=== PATIENT | male | born 1980 | race Caucasian/White ===

== ENCOUNTER → 2017-06-01 14:59 | Outpatient (CLI) | payer OTHER, SELFPAY ==
[2017-06-08 09:23] LABS: Calprotectin, Stool 58 ug/g (0-120)
== END ==
PROVIDERS: Family Provider Family Medicine; PCP Family Medicine; Visit Provider Internal Medicine Gastroenterology
DX: K50.90 Crohn's disease, unspecified, without complications (principal)
CPT/HCPCS: 36415; 83630; 83993; 86140

== ENCOUNTER → 2017-06-08 10:31 | Outpatient (CLI) | payer OTHER, SELFPAY ==
[2017-06-08 12:27] LABS: ALB/GLOB Ratio 1.1 RATIO (0.9-2.4); AST(SGOT) 14 U/L (15-37); Alanine Aminotransfer ALT/SGPT 22 U/L (16-61); Alkaline Phosphatase 142 U/L (45-117); Anion Gap 8 (5-15); BUN 12 mg/dL (7-18); BUN/Creat Ratio 12.2 RATIO (10-20); Calcium,Total 8.9 mg/dL (8.5-10.1); Chloride 103 mmol/L (98-107); Creatinine, Serum 0.98 mg/dL (0.70-1.30); EST Glomerular Filtration Rate 92 mL/min (>60); Est Glom Filt Rate - Afr Amer 112 mL/min (>60); Globulin 3.6 g/dL (2.2-4.2); Glucose 100 mg/dL (74-106); Potassium 3.6 mmol/L (3.5-5.1); Protein, Total 7.6 g/dL (6.4-8.2); Sodium Level 139 mmol/L (136-145)
[2017-06-08 12:32] LABS: Absolute Lymphocyte Count 0.64 X10^3/ul (0.83-4.51); Absolute Neutrophil Count 4.3 X10^3/uL (2.0-7.7); Eosinophil# 0.07 X10^3/uL; Eosinophils% 1.3 % (0-5); Hematocrit 44.6 % (40-54); Hemoglobin 14.5 g/dl (13.0-16.5); Lymphocyte # 0.64 X10^3/ul (4.0); Lymphocyte % 11.7 % (19-41); Mean Corp Hgb Conc 32.5 g/gl (32-36); Mean Corpuscular Hgb 27.8 pg (27.0-32.0); Mean Corpuscular Volume 85.6 fL (80-94); Mean Platelet Vol. 10.8 fl (6.2-12.0); Monocyte# 0.45 X10^3/uL; Monocyte% 8.2 % (0-10); Neutrophil % 78.6 % (47-70); Platelet Count 189 K/mm3 (150-450); RBC Distribution Width CV 13.5 % (11.6-14.6); RBC Distribution Width SD 42.6 fl (35.1-43.9); Red Blood Count 5.21 M/mm3 (4.6-6.2); White Blood Count 5.5 K/mm3 (4.4-11.0)
[2017-06-08 12:41] LABS: POSITIVE COUNT NO; POSITIVE DIFFERENTIAL NO; POSITIVE MORPHOLOGY NO
== END ==
PROVIDERS: Family Provider Family Medicine; PCP Family Medicine
DX: Z79.2 Long term (current) use of antibiotics (principal); K51.90 Ulcerative colitis, unspecified, without complications
CPT/HCPCS: 36415; 80053; 85025

== ENCOUNTER → 2017-07-06 12:52 | Outpatient (CLI) | payer OTHER, SELFPAY ==
[2017-07-06 12:59] VITALS: BP 151/96; PULSE 88; RESP 18; TEMP 36.7; O2SAT 98; BMI 29.8
== END ==
PROVIDERS: Family Provider Family Medicine; PCP Family Medicine; Visit Provider Internal Medicine Gastroenterology
DX: K52.9 Noninfective gastroenteritis and colitis, unspecified (principal)
CPT/HCPCS: 96413; J7050; J3380

== ENCOUNTER → 2017-07-20 12:52 | Outpatient (CLI) | payer OTHER, SELFPAY ==
[2017-07-20 12:59] VITALS: BP 146/77; PULSE 75; RESP 16; TEMP 36.6; O2SAT 97; BMI 29.8
[2017-07-20 14:20] VITALS: BP 123/71; PULSE 69
== END ==
PROVIDERS: Family Provider Family Medicine; PCP Family Medicine; Visit Provider Internal Medicine Gastroenterology
DX: K52.9 Noninfective gastroenteritis and colitis, unspecified (principal)
CPT/HCPCS: 96413; J7050; A4216; J3380

== ENCOUNTER → 2017-07-24 09:30 | Outpatient (CLI) | payer OTHER, SELFPAY ==
[2017-07-24 14:18] LABS: Absolute Lymphocyte Count 0.63 X10^3/ul (0.83-4.51); Absolute Neutrophil Count 3.1 X10^3/uL (2.0-7.7); Eosinophils% 2.3 % (0-5); Hematocrit 42.8 % (40-54); Hemoglobin 14.4 g/dl (13.0-16.5); Lymphocyte # 0.63 X10^3/ul (4.0); Lymphocyte % 14.7 % (19-41); Mean Corp Hgb Conc 33.6 g/gl (32-36); Mean Corpuscular Hgb 28.3 pg (27.0-32.0); Mean Corpuscular Volume 84.3 fL (80-94); Mean Platelet Vol. 11.3 fl (6.2-12.0); Monocyte# 0.47 X10^3/uL; Neutrophil # 3.07 X10^3/uL (2.7-7.7); Neutrophil % 71.5 % (47-70); Platelet Count 181 K/mm3 (150-450); RBC Distribution Width CV 13.5 % (11.6-14.6); Red Blood Count 5.08 M/mm3 (4.6-6.2); White Blood Count 4.3 K/mm3 (4.4-11.0)
[2017-07-24 14:28] LABS: POSITIVE COUNT NO; POSITIVE DIFFERENTIAL NO; POSITIVE MORPHOLOGY NO
== END ==
PROVIDERS: Family Provider Family Medicine; PCP Family Medicine; Visit Provider Internal Medicine
DX: B39.4 Histoplasmosis capsulati, unspecified (principal); Z79.2 Long term (current) use of antibiotics
CPT/HCPCS: 36415; 85025

== ENCOUNTER → 2017-08-09 09:24 | Outpatient (CLI) | payer OTHER, SELFPAY ==
[2017-08-09 10:26] LABS: Hematocrit 41.6 % (40-54); Mean Corp Hgb Conc 33.7 g/gl (32-36); Mean Corpuscular Hgb 28.5 pg (27.0-32.0); Mean Corpuscular Volume 84.6 fL (80-94); Mean Platelet Vol. 10.8 fl (6.2-12.0); Platelet Count 167 K/mm3 (150-450); RBC Distribution Width CV 13.5 % (11.6-14.6); RBC Distribution Width SD 41.1 fl (35.1-43.9); Red Blood Count 4.92 M/mm3 (4.6-6.2); White Blood Count 5.4 K/mm3 (4.4-11.0)
[2017-08-09 10:36] LABS: Scan Indicated on CBC? Y/N NO
[2017-08-09 10:42] LABS: CRP 8.77 mg/L (0.0-3.0)
== END ==
PROVIDERS: Family Provider Family Medicine; PCP Family Medicine; Visit Provider Internal Medicine Gastroenterology
DX: K52.9 Noninfective gastroenteritis and colitis, unspecified (principal); B39.9 Histoplasmosis, unspecified
CPT/HCPCS: 36415; 85027; 86140

== ENCOUNTER → 2017-08-17 12:57 | Outpatient (CLI) | payer OTHER, SELFPAY ==
[2017-08-17 13:05] VITALS: BP 133/91; PULSE 71; RESP 16; TEMP 36.5; O2SAT 96; BMI 30.4
== END ==
PROVIDERS: Family Provider Family Medicine; PCP Family Medicine; Visit Provider Internal Medicine Gastroenterology
DX: K52.9 Noninfective gastroenteritis and colitis, unspecified (principal)
CPT/HCPCS: 96413; J7050; A4216; J3380

== ENCOUNTER → 2017-10-12 12:14 | Outpatient (CLI) | payer OTHER, SELFPAY ==
[2017-10-12 12:59] VITALS: BP 133/72; PULSE 74; RESP 18; TEMP 36.9; O2SAT 95; BMI 29.8
== END ==
PROVIDERS: Family Provider Family Medicine; PCP Family Medicine; Visit Provider Internal Medicine Gastroenterology
DX: K52.9 Noninfective gastroenteritis and colitis, unspecified (principal)
CPT/HCPCS: 96413; J7050; A4216; J3380

== ENCOUNTER → 2017-12-12 12:48 | Outpatient (CLI) | payer OTHER, SELFPAY ==
[2017-12-12 13:17] VITALS: BP 121/78; PULSE 75; RESP 18; TEMP 36.3; O2SAT 97; BMI 29.8
== END ==
PROVIDERS: Family Provider Family Medicine; PCP Family Medicine; Visit Provider Internal Medicine Gastroenterology
DX: K52.9 Noninfective gastroenteritis and colitis, unspecified (principal)
CPT/HCPCS: 96413; J7050; A4216; J3380

== ENCOUNTER 2018-01-03 11:49 | Outpatient (RCR) | payer OTHER, SELFPAY ==
[2018-01-03 14:19] LABS: Absolute Lymphocyte Count 0.73 X10^3/ul (0.83-4.51); Absolute Neutrophil Count 5.4 X10^3/uL (2.0-7.7); Eosinophil# 0.12 X10^3/uL; Eosinophils% 1.7 % (0-5); Hematocrit 43.3 % (40-54); Hemoglobin 14.5 g/dl (13.0-16.5); Lymphocyte # 0.73 X10^3/ul (4.0); Lymphocyte % 10.5 % (19-41); Mean Corp Hgb Conc 33.5 g/gl (32-36); Mean Corpuscular Hgb 27.9 pg (27.0-32.0); Mean Corpuscular Volume 83.4 fL (80-94); Mean Platelet Vol. 10.2 fl (6.2-12.0); Monocyte# 0.65 X10^3/uL; Monocyte% 9.4 % (0-10); Neutrophil # 5.42 X10^3/uL (2.7-7.7); Neutrophil % 78.1 % (47-70); POSITIVE COUNT NO; POSITIVE DIFFERENTIAL NO; POSITIVE MORPHOLOGY NO; Platelet Count 193 K/mm3 (150-450); RBC Distribution Width CV 13.2 % (11.6-14.6); RBC Distribution Width SD 39.8 fl (35.1-43.9); Red Blood Count 5.19 M/mm3 (4.6-6.2); White Blood Count 6.9 K/mm3 (4.4-11.0)
[2018-01-03 14:35] LABS: ALB/GLOB Ratio 1.1 RATIO (0.9-2.4); AST(SGOT) 17 U/L (15-37); Alanine Aminotransfer ALT/SGPT 28 U/L (16-61); Alkaline Phosphatase 140 U/L (45-117); Anion Gap 7 (5-15); BUN 16 mg/dL (7-18); BUN/Creat Ratio 15.8 RATIO (10-20); Calcium,Total 8.9 mg/dL (8.5-10.1); Chloride 106 mmol/L (98-107); Creatinine, Serum 1.01 mg/dL (0.70-1.30); EST Glomerular Filtration Rate 89 mL/min (>60); Est Glom Filt Rate - Afr Amer 108 mL/min (>60); Globulin 3.7 g/dL (2.2-4.2); Glucose 95 mg/dL (74-106); Potassium 3.8 mmol/L (3.5-5.1); Protein, Total 7.7 g/dL (6.4-8.2); Sodium Level 139 mmol/L (136-145)
== END 2018-01-03 13:00 | disposition home or self-care (01) ==
LOC: MTLAB 11:49
PROVIDERS: Family Provider Family Medicine; PCP Family Medicine; Referring Provider Internal Medicine; Visit Provider Internal Medicine
DX: B39.2 Pulmonary histoplasmosis capsulati, unspecified (principal); Z79.2 Long term (current) use of antibiotics
CPT/HCPCS: 36415; 80053; 85025

== ENCOUNTER → 2018-02-14 12:58 | Outpatient (CLI) | payer OTHER, SELFPAY ==
[2018-02-14 13:26] VITALS: BP 137/93; PULSE 84; RESP 16; TEMP 36.2; O2SAT 97; BMI 29.8
== END ==
PROVIDERS: Family Provider Family Medicine; PCP Family Medicine; Visit Provider Internal Medicine Gastroenterology
DX: K52.9 Noninfective gastroenteritis and colitis, unspecified (principal)
CPT/HCPCS: 96413; J7050; A4216; J3380

== ENCOUNTER 2018-03-13 07:20 | Outpatient (RCR) | payer OTHER, SELFPAY ==
[2018-03-13 10:49] LABS: Absolute Lymphocyte Count 0.63 X10^3/ul (0.83-4.51); Absolute Neutrophil Count 3.5 X10^3/uL (2.0-7.7); Eosinophil# 0.13 X10^3/uL; Eosinophils% 2.8 % (0-5); Hematocrit 44.6 % (40-54); Hemoglobin 14.9 g/dl (13.0-16.5); Lymphocyte # 0.63 X10^3/ul (4.0); Lymphocyte % 13.5 % (19-41); Mean Corp Hgb Conc 33.4 g/gl (32-36); Mean Corpuscular Hgb 28.4 pg (27.0-32.0); Mean Platelet Vol. 10.8 fl (6.2-12.0); Monocyte# 0.43 X10^3/uL; Monocyte% 9.2 % (0-10); Neutrophil # 3.45 X10^3/uL (2.7-7.7); Neutrophil % 74.3 % (47-70); Platelet Count 170 K/mm3 (150-450); RBC Distribution Width CV 13.3 % (11.6-14.6); RBC Distribution Width SD 41.1 fl (35.1-43.9); Red Blood Count 5.25 M/mm3 (4.6-6.2); White Blood Count 4.7 K/mm3 (4.4-11.0)
[2018-03-13 10:50] LABS: POSITIVE COUNT NO; POSITIVE DIFFERENTIAL NO; POSITIVE MORPHOLOGY NO
[2018-03-13 11:16] LABS: ALB/GLOB Ratio 1.1 RATIO (0.9-2.4); AST(SGOT) 16 U/L (15-37); Alanine Aminotransfer ALT/SGPT 22 U/L (16-61); Albumin, Serum 3.9 g/dL (3.2-5.0); Alkaline Phosphatase 135 U/L (45-117); Anion Gap 10 (5-15); BUN 15 mg/dL (7-18); BUN/Creat Ratio 16.1 RATIO (10-20); CRP 5.92 mg/L (0.0-3.0); Calcium,Total 8.7 mg/dL (8.5-10.1); Chloride 107 mmol/L (98-107); Creatinine, Serum 0.93 mg/dL (0.70-1.30); EST Glomerular Filtration Rate 97 mL/min (>60); Est Glom Filt Rate - Afr Amer 118 mL/min (>60); Globulin 3.4 g/dL (2.2-4.2); Glucose 79 mg/dL (74-106); Potassium 4.1 mmol/L (3.5-5.1); Protein, Total 7.3 g/dL (6.4-8.2); Sodium Level 143 mmol/L (136-145)
[2018-03-13 15:23] LABS: Xtra Tube EP Lab EXTRA TUBE
== END 2018-03-13 08:00 | disposition home or self-care (01) ==
LOC: MTLAB 07:20
PROVIDERS: Family Provider Family Medicine; PCP Family Medicine; Referring Provider Internal Medicine; Visit Provider Internal Medicine
DX: K52.9 Noninfective gastroenteritis and colitis, unspecified (principal)
CPT/HCPCS: 36415; 80053; 82248; 85025; 86140

== ENCOUNTER → 2018-04-05 10:04 | Outpatient (CLI) | payer OTHER, SELFPAY ==
[2018-04-05 13:03] LABS: Cholesterol 142 mg/dL (200); High Density Lipoprotein 42 mg/dL; Triglycerides 127 mg/dL; Very Low Density Lipoprotein 25 mg/dL (5-40)
== END ==
PROVIDERS: Family Provider Family Medicine; PCP Family Medicine; Referring Provider Family Medicine; Visit Provider Family Medicine
DX: I10 Essential (primary) hypertension (principal)
CPT/HCPCS: 36415; 80061

== ENCOUNTER → 2018-04-11 07:50 | Outpatient (CLI) | payer OTHER, SELFPAY ==
[2018-02-14 13:26] VITALS: BMI 29.8
[2018-04-11 08:16] VITALS: BP 122/84; PULSE 69; RESP 16; TEMP 36.1; O2SAT 97; BMI 30.4
== END ==
PROVIDERS: Family Provider Family Medicine; PCP Family Medicine; Referring Provider Internal Medicine Gastroenterology; Visit Provider Internal Medicine Gastroenterology
DX: K52.9 Noninfective gastroenteritis and colitis, unspecified (principal)
CPT/HCPCS: 96413; J7050; A4216; J3380

== ENCOUNTER → 2018-06-07 12:47 | Outpatient (CLI) | payer OTHER, SELFPAY ==
[2018-04-11 08:16] VITALS: BMI 30.4
[2018-06-07 13:07] VITALS: BP 127/85; PULSE 79; RESP 16; TEMP 36.7; BMI 30.8
== END ==
PROVIDERS: Family Provider Family Medicine; PCP Family Medicine; Referring Provider Internal Medicine Gastroenterology; Visit Provider Internal Medicine Gastroenterology
DX: K52.9 Noninfective gastroenteritis and colitis, unspecified (principal)
CPT/HCPCS: 96413; J7050; A4216; J3380

== ENCOUNTER 2018-06-19 09:09 | Outpatient (RCR) | payer OTHER, SELFPAY ==
[2018-02-14 13:26] VITALS: BMI 29.8
[2018-04-11 08:16] VITALS: BMI 30.4
[2018-06-07 13:07] VITALS: BMI 30.8
[2018-06-19 12:25] LABS: Absolute Lymphocyte Count 0.86 X10^3/ul (0.83-4.51); Eosinophil# 0.39 X10^3/uL; Eosinophils% 5.7 % (0-5); Hematocrit 46.5 % (40-54); Hemoglobin 15.5 g/dl (13.0-16.5); Lymphocyte # 0.86 X10^3/ul (4.0); Lymphocyte % 12.6 % (19-41); Mean Corp Hgb Conc 33.3 g/gl (32-36); Mean Corpuscular Hgb 28.5 pg (27.0-32.0); Mean Corpuscular Volume 85.5 fL (80-94); Mean Platelet Vol. 11.1 fl (6.2-12.0); Monocyte# 0.53 X10^3/uL; Monocyte% 7.8 % (0-10); Neutrophil # 5.01 X10^3/uL (2.7-7.7); Neutrophil % 73.5 % (47-70); Platelet Count 202 K/mm3 (150-450); RBC Distribution Width CV 12.9 % (11.6-14.6); RBC Distribution Width SD 40.1 fl (35.1-43.9); Red Blood Count 5.44 M/mm3 (4.6-6.2); White Blood Count 6.8 K/mm3 (4.4-11.0)
[2018-06-19 12:38] LABS: POSITIVE COUNT NO; POSITIVE DIFFERENTIAL NO; POSITIVE MORPHOLOGY NO
[2018-06-19 12:40] LABS: AST(SGOT) 15 U/L (15-37); Alanine Aminotransfer ALT/SGPT 26 U/L (16-61); Albumin, Serum 4.1 g/dL (3.2-5.0); Alkaline Phosphatase 167 U/L (45-117); Anion Gap 10 (5-15); BUN 15 mg/dL (7-18); BUN/Creat Ratio 15.7 RATIO (10-20); Calcium,Total 8.9 mg/dL (8.5-10.1); Chloride 104 mmol/L (98-107); Creatinine, Serum 0.96 mg/dL (0.70-1.30); EST Glomerular Filtration Rate 95 mL/min (>60); Est Glom Filt Rate - Afr Amer 115 mL/min (>60); Ferritin 47 ng/mL (26-388); Glucose 88 mg/dL (74-106); Iron 68 ug/dL (65-175); Potassium 3.9 mmol/L (3.5-5.1); Protein, Total 8.1 g/dL (6.4-8.2); Sodium Level 142 mmol/L (136-145)
[2018-06-19 17:22] LABS: Xtra Tube EP Lab EXTRA TUBE
[2018-06-20 11:22] LABS: Transferrin 268 mg/dL (200-370)
== END 2018-06-19 10:00 | disposition home or self-care (01) ==
LOC: MTLAB 09:09
PROVIDERS: Family Provider Family Medicine; PCP Family Medicine; Referring Provider Internal Medicine; Visit Provider Internal Medicine
DX: K52.9 Noninfective gastroenteritis and colitis, unspecified (principal); B39.4 Histoplasmosis capsulati, unspecified; Z79.2 Long term (current) use of antibiotics; E83.19 Other disorders of iron metabolism; K51.90 Ulcerative colitis, unspecified, without complications
CPT/HCPCS: 36415; 80053; 82728; 83540; 84466; 85025; 86140

== ENCOUNTER → 2018-07-27 11:00 | Outpatient (CLI) | payer OTHER, SELFPAY ==
[2018-07-27 11:00] VITALS: BMI 30.8
[2018-07-27 13:50] LABS: HIV - WCH Non-Reactive (Nonreactive)
[2018-07-27 14:40] LABS: Chlamydia Trachomatis by PCR Negative (Negative); Neisserai gonorrhoeae by PCR Negative (Negative); Probe Check PASS; Sample Adequacy Control PASS; Specimen Processing Control PASS
[2018-08-03 02:51] LABS: Rapid Plasmin Reagin (RPR) NONREACTIVE (NONREACTIVE)
== END ==
PROVIDERS: Family Provider Family Medicine; PCP Family Medicine; Visit Provider Family Medicine
DX: Z20.9 Contact with and (suspected) exposure to unspecified communicable disease (principal); R30.0 Dysuria
CPT/HCPCS: 36415; 86592; 86703; 87491; 87591

== ENCOUNTER → 2018-08-02 12:58 | Outpatient (CLI) | payer OTHER, SELFPAY ==
[2018-06-07 13:07] VITALS: BMI 30.8
[2018-07-27 11:00] VITALS: BMI 30.8
[2018-08-02 13:24] VITALS: BP 130/81; PULSE 91; RESP 16; TEMP 36.6; O2SAT 94; BMI 31.5
== END ==
PROVIDERS: Family Provider Family Medicine; PCP Family Medicine; Referring Provider Internal Medicine Gastroenterology; Visit Provider Internal Medicine Gastroenterology
DX: K52.9 Noninfective gastroenteritis and colitis, unspecified (principal)
CPT/HCPCS: 96413; J7050; A4216; J3380

== ENCOUNTER → 2018-08-17 10:44 | Outpatient (CLI) | payer OTHER, SELFPAY ==
[2018-08-02 13:24] VITALS: BMI 31.5
[2018-08-17 13:26] LABS: CRP < 2.90 mg/L (0.0-3.0)
[2018-08-20 13:02] LABS: Calprotectin, Stool 26 ug/g (0-120)
== END ==
PROVIDERS: Family Provider Family Medicine; PCP Family Medicine; Referring Provider Internal Medicine Gastroenterology; Visit Provider Internal Medicine Gastroenterology
DX: K52.9 Noninfective gastroenteritis and colitis, unspecified (principal); B39.9 Histoplasmosis, unspecified
CPT/HCPCS: 36415; 83993; 86140

== ENCOUNTER 2018-09-21 09:45 | Outpatient (RCR) | payer OTHER, SELFPAY ==
[2018-07-06 14:09] VITALS: BMI 30.4
[2018-08-02 13:24] VITALS: BMI 31.5
[2018-09-21 12:16] LABS: Absolute Lymphocyte Count 0.72 X10^3/ul (0.83-4.51); Absolute Neutrophil Count 3.5 X10^3/uL (2.0-7.7); Eosinophil# 0.14 X10^3/uL; Eosinophils% 2.9 % (0-5); Hematocrit 44.6 % (40-54); Hemoglobin 15.2 g/dl (13.0-16.5); Lymphocyte # 0.72 X10^3/ul (4.0); Lymphocyte % 14.9 % (19-41); Mean Corp Hgb Conc 34.1 g/gl (32-36); Mean Corpuscular Hgb 28.8 pg (27.0-32.0); Mean Corpuscular Volume 84.5 fL (80-94); Mean Platelet Vol. 10.9 fl (6.2-12.0); Monocyte# 0.49 X10^3/uL; Monocyte% 10.1 % (0-10); Neutrophil # 3.48 X10^3/uL (2.7-7.7); Neutrophil % 71.9 % (47-70); Platelet Count 175 K/mm3 (150-450); RBC Distribution Width CV 13.3 % (11.6-14.6); RBC Distribution Width SD 40.5 fl (35.1-43.9); Red Blood Count 5.28 M/mm3 (4.6-6.2); White Blood Count 4.8 K/mm3 (4.4-11.0)
[2018-09-21 12:21] LABS: POSITIVE COUNT NO; POSITIVE DIFFERENTIAL NO; POSITIVE MORPHOLOGY NO
[2018-09-21 12:41] LABS: ALB/GLOB Ratio 1.2 RATIO (0.9-2.4); AST(SGOT) 13 U/L (15-37); Alanine Aminotransfer ALT/SGPT 25 U/L (16-61); Albumin, Serum 3.9 g/dL (3.2-5.0); Alkaline Phosphatase 118 U/L (45-117); Anion Gap 7 (5-15); BUN 16 mg/dL (7-18); BUN/Creat Ratio 18.6 RATIO (10-20); Calcium,Total 8.8 mg/dL (8.5-10.1); Chloride 109 mmol/L (98-107); Creatinine, Serum 0.86 mg/dL (0.70-1.30); EST Glomerular Filtration Rate 107 mL/min (>60); Est Glom Filt Rate - Afr Amer 129 mL/min (>60); Globulin 3.3 g/dL (2.2-4.2); Glucose 86 mg/dL (74-106); Protein, Total 7.2 g/dL (6.4-8.2); Sodium Level 142 mmol/L (136-145)
[2018-09-21 17:55] LABS: Xtra Tube EP Lab EXTRA TUBE
== END 2018-09-21 10:00 | disposition home or self-care (01) ==
LOC: MTLAB 09:45
PROVIDERS: Family Provider Family Medicine; PCP Family Medicine; Referring Provider Internal Medicine; Visit Provider Internal Medicine
DX: B39.4 Histoplasmosis capsulati, unspecified (principal); Z79.2 Long term (current) use of antibiotics
CPT/HCPCS: 36415; 80053; 85025

== ENCOUNTER → 2018-10-10 12:47 | Outpatient (CLI) | payer OTHER, SELFPAY ==
[2018-08-02 13:24] VITALS: BMI 31.5
[2018-10-10 13:00] VITALS: BP 132/79; PULSE 74; RESP 16; TEMP 36.4; O2SAT 100; BMI 30.8
== END ==
PROVIDERS: Family Provider Family Medicine; PCP Family Medicine; Referring Provider Internal Medicine Gastroenterology; Visit Provider Internal Medicine Gastroenterology
DX: K52.9 Noninfective gastroenteritis and colitis, unspecified (principal)
CPT/HCPCS: 96413; J7050; A4216; J3380

== ENCOUNTER → 2018-12-11 12:47 | Outpatient (CLI) | payer OTHER, SELFPAY ==
[2018-08-02 13:24] VITALS: BMI 31.5
[2018-12-11 13:05] VITALS: BP 139/80; PULSE 84; RESP 16; TEMP 36.4; O2SAT 95; BMI 30.8
== END ==
PROVIDERS: Family Provider Family Medicine; PCP Family Medicine; Referring Provider Internal Medicine Gastroenterology; Visit Provider Internal Medicine Gastroenterology
DX: K52.9 Noninfective gastroenteritis and colitis, unspecified (principal)
CPT/HCPCS: 96413; J7050; J3380

== ENCOUNTER → 2019-02-04 07:52 | Outpatient (CLI) | payer OTHER, SELFPAY ==
[2018-12-11 13:05] VITALS: BMI 30.8
[2019-02-04 08:18] VITALS: BP 160/91; PULSE 64; RESP 16; TEMP 35.9; O2SAT 99; BMI 30.8
== END ==
PROVIDERS: Family Provider Family Medicine; PCP Family Medicine; Referring Provider Internal Medicine Gastroenterology; Visit Provider Internal Medicine Gastroenterology
DX: K52.9 Noninfective gastroenteritis and colitis, unspecified (principal)
CPT/HCPCS: 96413; J7050; A4216; J3380

== ENCOUNTER 2019-03-11 10:38 | Outpatient (RCR) | payer OTHER, SELFPAY ==
[2018-08-02 13:24] VITALS: BMI 31.5
[2019-02-04 08:18] VITALS: BMI 30.8
[2019-03-11 12:37] LABS: Absolute Lymphocyte Count 0.92 X10^3/uL (0.83-4.51); Absolute Neutrophil Count 4.4 X10^3/uL (2.0-7.7); Basophil# 0.01 X10^3/uL; Basophil% 0.2 % (0-1); Eosinophil# 0.14 X10^3/uL; Eosinophils% 2.3 % (0-5); Hematocrit 47.6 % (40-54); Lymphocyte # 0.92 X10^3/ul (4.0); Lymphocyte % 15.3 % (19-41); Mean Corp Hgb Conc 33.6 g/dL (32-36); Mean Corpuscular Hgb 28.6 pg (27.0-32.0); Mean Corpuscular Volume 85.2 fL (80-94); Monocyte# 0.54 X10^3/uL; NRBC Flagged by Analyzer 0 % (0-5); Neutrophil # 4.36 X10^3/uL (2.7-7.7); Neutrophil % 72.7 % (47-70); Platelet Count 189 K/mm3 (150-450); RBC Distribution Width CV 12.7 % (11.6-14.6); RBC Distribution Width SD 39.4 fl (35.1-43.9); Red Blood Count 5.59 M/mm3 (4.6-6.2)
[2019-03-11 12:44] LABS: ALB/GLOB Ratio 1.3 RATIO (0.9-2.4); AST(SGOT) 15 U/L (15-37); Alanine Aminotransfer ALT/SGPT 22 U/L (16-61); Albumin, Serum 4.1 g/dL (3.2-5.0); Alkaline Phosphatase 124 U/L (45-117); Anion Gap 7 (5-15); BUN 16 mg/dL (7-18); BUN/Creat Ratio 18.4 RATIO (10-20); Calcium,Total 8.8 mg/dL (8.5-10.1); Chloride 106 mmol/L (98-107); Creatinine, Serum 0.87 mg/dL (0.70-1.30); EST Glomerular Filtration Rate 105 mL/min (>60); Est Glom Filt Rate - Afr Amer 127 mL/min (>60); Globulin 3.2 g/dL (2.2-4.2); Glucose 90 mg/dL (74-106); Potassium 4.1 mmol/L (3.5-5.1); Protein, Total 7.3 g/dL (6.4-8.2); Sodium Level 139 mmol/L (136-145)
== END 2019-03-11 18:00 | disposition home or self-care (01) ==
LOC: MTLAB 10:38
PROVIDERS: Family Provider Family Medicine; PCP Family Medicine; Referring Provider Internal Medicine; Visit Provider Internal Medicine
DX: B39.4 Histoplasmosis capsulati, unspecified (principal); Z79.2 Long term (current) use of antibiotics
CPT/HCPCS: 36415; 80053; 85025

== ENCOUNTER → 2019-04-01 12:50 | Outpatient (CLI) | payer OTHER, SELFPAY ==
[2019-02-04 08:18] VITALS: BMI 30.8
[2019-04-01 12:58] VITALS: BP 154/97; PULSE 76; RESP 18; TEMP 36.6; O2SAT 95; BMI 31.5
== END ==
PROVIDERS: Family Provider Family Medicine; PCP Family Medicine; Referring Provider Internal Medicine Gastroenterology; Visit Provider Internal Medicine Gastroenterology
DX: K52.9 Noninfective gastroenteritis and colitis, unspecified (principal)
CPT/HCPCS: 96413; J7050; A4216; J3380

== ENCOUNTER → 2019-06-10 10:42 | Outpatient (CLI) | payer BC, SELFPAY ==
[2019-04-01 12:58] VITALS: BMI 31.5
[2019-06-10 13:57] LABS: HIV - WCH Non-Reactive (Nonreactive)
[2019-06-10 16:07] LABS: Chlamydia Trachomatis by PCR Negative (Negative); Neisserai gonorrhoeae by PCR Negative (Negative); Probe Check PASS; Sample Adequacy Control PASS; Specimen Processing Control PASS
[2019-06-13 00:26] LABS: Rapid Plasmin Reagin (RPR) NONREACTIVE (NONREACTIVE)
== END ==
PROVIDERS: PCP Family Medicine; Visit Provider Family Medicine
DX: Z20.2 Contact with and (suspected) exposure to infections with a predominantly sexual mode of transmission (principal)
CPT/HCPCS: 36415; 86592; 86703; 87491; 87591

== ENCOUNTER → 2019-06-13 12:49 | Outpatient (CLI) | payer BC, SELFPAY ==
[2019-04-01 12:58] VITALS: BMI 31.5
[2019-06-13 12:59] VITALS: BP 147/82; PULSE 92; RESP 16; TEMP 36.6; O2SAT 96; BMI 31.5
== END ==
PROVIDERS: Family Provider Family Medicine; PCP Family Medicine; Referring Provider Internal Medicine Gastroenterology; Visit Provider Internal Medicine Gastroenterology
DX: K50.00 Crohn's disease of small intestine without complications (principal); K52.9 Noninfective gastroenteritis and colitis, unspecified
CPT/HCPCS: 96413; J7050; A4216; J3380

== ENCOUNTER → 2019-08-08 13:06 | Outpatient (CLI) | payer BC, SELFPAY ==
[2019-04-01 12:58] VITALS: BMI 31.5
[2019-06-13 12:59] VITALS: BMI 31.5
[2019-08-08 13:15] VITALS: BP 158/81; PULSE 77; RESP 16; TEMP 36.2; O2SAT 98; BMI 31.5
[2019-08-08] MEDS: 0.9% NaCl Peripheral Flush Adult/Peds IV (13:32)
[2019-08-08] MEDS: 0.9% NaCl IVPB Med Flush (250 mL) 15 ML IV (13:32)
[2019-08-08 14:21] VITALS: BP 142/87; PULSE 72; RESP 14; TEMP 36.5; O2SAT 97
== END ==
PROVIDERS: PCP Family Medicine; Referring Provider Internal Medicine Gastroenterology; Visit Provider Internal Medicine Gastroenterology
DX: K50.00 Crohn's disease of small intestine without complications (principal)
CPT/HCPCS: 96413; J7050; A4216; J3380

== ENCOUNTER 2019-09-10 09:11 | Outpatient (RCR) | payer BC, SELFPAY ==
[2019-04-01 12:58] VITALS: BMI 31.5
[2019-08-08 13:15] VITALS: BMI 31.5
[2019-09-10 10:20] LABS: Absolute Lymphocyte Count 0.92 X10^3/uL (0.83-4.51); Absolute Neutrophil Count 2.8 X10^3/uL (2.0-7.7); Basophil# 0.01 X10^3/uL; Basophil% 0.2 % (0-1); Eosinophil# 0.15 X10^3/uL; Eosinophils% 3.5 % (0-5); Hematocrit 46.8 % (40-54); Hemoglobin 15.5 g/dL (13.0-16.5); Lymphocyte # 0.92 X10^3/ul (4.0); Lymphocyte % 21.5 % (19-41); Mean Corp Hgb Conc 33.1 g/dL (32-36); Mean Corpuscular Hgb 28.4 pg (27.0-32.0); Mean Corpuscular Volume 85.7 fL (80-94); Mean Platelet Vol. 10.9 fl (6.2-12.0); Monocyte# 0.43 X10^3/uL; Monocyte% 10.1 % (0-10); NRBC Flagged by Analyzer 0 % (0-5); Neutrophil # 2.75 X10^3/uL (2.7-7.7); Neutrophil % 64.5 % (47-70); Platelet Count 204 K/mm3 (150-450); RBC Distribution Width CV 12.3 % (11.6-14.6); RBC Distribution Width SD 38.1 fl (35.1-43.9); Red Blood Count 5.46 M/mm3 (4.6-6.2); White Blood Count 4.3 K/mm3 (4.4-11.0)
[2019-09-10 10:56] LABS: ALB/GLOB Ratio 1.3 RATIO (0.9-2.4); AST(SGOT) 11 U/L (15-37); Alanine Aminotransfer ALT/SGPT 26 U/L (16-61); Albumin, Serum 4.2 g/dL (3.2-5.0); Alkaline Phosphatase 128 U/L (45-117); Anion Gap 8 (5-15); BUN 16 mg/dL (7-18); BUN/Creat Ratio 17.9 RATIO (10-20); Calcium,Total 8.9 mg/dL (8.5-10.1); Chloride 108 mmol/L (98-107); EST Glomerular Filtration Rate 101 mL/min (>60); Est Glom Filt Rate - Afr Amer 122 mL/min (>60); Globulin 3.2 g/dL (2.2-4.2); Glucose 100 mg/dL (74-106); Potassium 4.2 mmol/L (3.5-5.1); Protein, Total 7.4 g/dL (6.4-8.2); Sodium Level 143 mmol/L (136-145)
== END 2019-09-10 18:00 | disposition home or self-care (01) ==
LOC: MTLAB 09:11
PROVIDERS: Family Provider Family Medicine; PCP Family Medicine; Referring Provider Internal Medicine; Visit Provider Internal Medicine
DX: B39.4 Histoplasmosis capsulati, unspecified (principal); Z79.2 Long term (current) use of antibiotics
CPT/HCPCS: 36415; 80053; 85025

== ENCOUNTER → 2019-10-03 12:53 | Outpatient (CLI) | payer BC, SELFPAY ==
[2019-06-13 12:59] VITALS: BMI 31.5
[2019-08-08 13:15] VITALS: BMI 31.5
[2019-10-03 13:15] VITALS: BP 145/86; PULSE 86; RESP 16; TEMP 36.6; O2SAT 97; BMI 31.2
[2019-10-03] MEDS: 0.9% NaCl Peripheral Flush Adult/Peds IV (13:23)
[2019-10-03] MEDS: 0.9% NaCl IVPB Med Flush (250 mL) 15 ML IV (13:24)
== END ==
PROVIDERS: PCP Family Medicine; Referring Provider Internal Medicine Gastroenterology; Visit Provider Internal Medicine Gastroenterology
DX: K50.00 Crohn's disease of small intestine without complications (principal); K52.9 Noninfective gastroenteritis and colitis, unspecified
CPT/HCPCS: 96413; J7050; A4216; J3380

== ENCOUNTER → 2019-11-28 12:51 | Outpatient (CLI) | payer BC, SELFPAY ==
[2019-08-08 13:15] VITALS: BMI 31.5
[2019-10-03 13:15] VITALS: BMI 31.2
[2019-11-28 13:07] VITALS: BP 155/89; PULSE 80; RESP 16; TEMP 36.1; O2SAT 98; BMI 31.2
[2019-11-28] MEDS: 0.9% NaCl Peripheral Flush Adult/Peds IV (13:13)
[2019-11-28] MEDS: 0.9% NaCl IVPB Med Flush (250 mL) 15 ML IV (13:13)
[2019-11-28 14:07] VITALS: BP 138/87; PULSE 67; RESP 16; O2SAT 98
== END ==
PROVIDERS: PCP Family Medicine; Referring Provider Internal Medicine Gastroenterology; Visit Provider Internal Medicine Gastroenterology
DX: K50.00 Crohn's disease of small intestine without complications (principal)
CPT/HCPCS: 96413; J7050; A4216; J3380

== ENCOUNTER → 2019-12-19 08:55 | Outpatient (CLI) | payer BC, SELFPAY ==
[2019-11-28 13:07] VITALS: BMI 31.2
[2019-12-19 12:59] LABS: Cholesterol 170 mg/dL (200); High Density Lipoprotein 44 mg/dL; Triglycerides 114 mg/dL; Very Low Density Lipoprotein 23 mg/dL (5-40)
[2019-12-19 13:29] LABS: HIV - WCH Non-Reactive (Nonreactive)
[2019-12-19 15:05] LABS: Chlamydia Trachomatis by PCR Negative (Negative); Neisserai gonorrhoeae by PCR Negative (Negative); Probe Check PASS; Sample Adequacy Control PASS; Specimen Processing Control PASS
[2019-12-26 04:30] LABS: Rapid Plasmin Reagin (RPR) NONREACTIVE (NONREACTIVE)
== END ==
PROVIDERS: PCP Family Medicine; Visit Provider Family Medicine
DX: Z20.9 Contact with and (suspected) exposure to unspecified communicable disease (principal); I10 Essential (primary) hypertension
CPT/HCPCS: 36415; 80061; 86592; 86703; 87491; 87591

== ENCOUNTER → 2020-01-23 13:58 | Outpatient (CLI) | payer BC, SELFPAY ==
[2019-10-03 13:15] VITALS: BMI 31.2
[2019-11-28 13:07] VITALS: BMI 31.2
[2020-01-23] MEDS: 0.9% NaCl Peripheral Flush Adult/Peds IV (14:22)
[2020-01-23] MEDS: 0.9% NaCl IVPB Med Flush (250 mL) 15 ML IV (14:24)
== END ==
PROVIDERS: PCP Family Medicine; Referring Provider Internal Medicine Gastroenterology; Visit Provider Internal Medicine Gastroenterology
DX: K52.9 Noninfective gastroenteritis and colitis, unspecified (principal)
CPT/HCPCS: 96413; J7050; A4216; J3380

== ENCOUNTER → 2020-03-19 13:19 | Outpatient (CLI) | payer BC, SELFPAY ==
[2019-11-28 13:07] VITALS: BMI 31.2
[2020-01-23 14:06] VITALS: BMI 31.2
[2020-03-19 13:34] VITALS: BP 133/88; PULSE 92; RESP 16; TEMP 36.1; O2SAT 98; BMI 31.2
[2020-03-19] MEDS: 0.9% NaCl IVPB Med Flush (250 mL) 15 ML IV (13:40)
[2020-03-19] MEDS: 0.9% NaCl Peripheral Flush Adult/Peds IV (13:40)
[2020-03-19 14:42] VITALS: BP 131/83; PULSE 88; RESP 16; TEMP 36.3; O2SAT 98
== END ==
PROVIDERS: PCP Family Medicine; Referring Provider Internal Medicine Gastroenterology; Visit Provider Internal Medicine Gastroenterology
DX: K50.00 Crohn's disease of small intestine without complications (principal)
CPT/HCPCS: 96413; J7050; A4216; J3380

== ENCOUNTER → 2020-05-14 13:24 | Outpatient (CLI) | payer BC, SELFPAY ==
[2020-01-23 14:06] VITALS: BMI 31.2
[2020-03-19 13:34] VITALS: BMI 31.2
[2020-05-14 13:45] VITALS: BP 145/91; PULSE 87; RESP 16; TEMP 35.9; O2SAT 97; BMI 31.2
[2020-05-14] MEDS: 0.9% NaCl Peripheral Flush Adult/Peds IV (14:01)
[2020-05-14] MEDS: 0.9% NaCl IVPB Med Flush (250 mL) 15 ML IV (14:02)
[2020-05-14 14:41] VITALS: BP 132/82; PULSE 70
== END ==
PROVIDERS: PCP Family Medicine; Referring Provider Internal Medicine Gastroenterology; Visit Provider Internal Medicine Gastroenterology
DX: K50.00 Crohn's disease of small intestine without complications (principal)
CPT/HCPCS: 96413; J7050; A4216; J3380

== ENCOUNTER → 2020-06-09 07:25 | Outpatient (CLI) | payer BC, SELFPAY ==
[2020-05-14 13:45] VITALS: BMI 31.2
[2020-06-09 10:06] LABS: Hemoglobin 15.4 g/dL (13.0-16.5); Mean Corp Hgb Conc 33.5 g/dL (32-36); Mean Corpuscular Volume 83.6 fL (80-94); Mean Platelet Vol. 10.3 fl (6.2-12.0); Platelet Count 215 K/mm3 (150-450); RBC Distribution Width CV 12.2 % (11.6-14.6); RBC Distribution Width SD 37.2 fl (35.1-43.9); White Blood Count 5.3 K/mm3 (4.4-11.0)
[2020-06-09 10:35] LABS: AST(SGOT) 12 U/L (15-37); Alanine Aminotransfer ALT/SGPT 24 U/L (16-61); Albumin, Serum 3.9 g/dL (3.2-5.0); Alkaline Phosphatase 102 U/L (45-117); Bilirubin, Direct 0.12 mg/dL (0.00-0.30); CRP 4.04 mg/L (0.0-3.0); Globulin 3.2 g/dL (2.2-4.2); Protein, Total 7.1 g/dL (6.4-8.2)
[2020-06-09 10:51] LABS: Hepatitis B Surface Antigen Non-Reactive (Nonreactive)
[2020-06-12 16:32] LABS: Calprotectin, Stool 373 ug/g (0-120)
[2020-06-14 20:06] LABS: QNTFERON TB Mitogen Value > 10.00 IU/mL (.); QNTFERON TB Nil Value 0.07 IU/mL (.); QNTFERON TB1+ Ag Value 0.11 IU/mL (.); QNTFERON TB2+ Ag Value 0.18 IU/mL (.)
[2020-06-15 12:16] LABS: QNTIFERON TB Positive Criteria Negative (Negative)
== END ==
PROVIDERS: PCP Family Medicine; Referring Provider Internal Medicine Gastroenterology; Visit Provider Internal Medicine Gastroenterology
DX: K52.9 Noninfective gastroenteritis and colitis, unspecified (principal); B39.9 Histoplasmosis, unspecified
CPT/HCPCS: 36415; 80076; 83993; 85027; 86140; 86480; 87340

== ENCOUNTER → 2020-07-09 13:26 | Outpatient (CLI) | payer BC, SELFPAY ==
[2020-03-19 13:34] VITALS: BMI 31.2
[2020-05-14 13:45] VITALS: BMI 31.2
[2020-07-09 13:50] VITALS: BP 141/86; PULSE 77; RESP 16; TEMP 36.5; O2SAT 98; BMI 31.2
[2020-07-09] MEDS: 0.9% NaCl Peripheral Flush Adult/Peds IV (14:11)
[2020-07-09] MEDS: 0.9% NaCl IVPB Med Flush (250 mL) 15 ML IV (14:11)
[2020-07-09 15:01] VITALS: BP 138/67; PULSE 76
== END ==
PROVIDERS: PCP Family Medicine; Referring Provider Internal Medicine Gastroenterology; Visit Provider Internal Medicine Gastroenterology
DX: K52.9 Noninfective gastroenteritis and colitis, unspecified (principal)
CPT/HCPCS: 96413; J7050; A4216; J3380

== ENCOUNTER → 2020-09-10 14:24 | Outpatient (CLI) | payer BC, SELFPAY ==
[2020-05-14 13:45] VITALS: BMI 31.2
[2020-07-09 13:50] VITALS: BMI 31.2
[2020-09-10 14:35] VITALS: BP 142/105; PULSE 78; RESP 16; TEMP 36.6; O2SAT 100; BMI 30.8
[2020-09-10] MEDS: 0.9% NaCl Peripheral Flush Adult/Peds IV (14:38)
[2020-09-10] MEDS: 0.9% NaCl IVPB Med Flush (250 mL) 15 ML IV (14:51)
[2020-09-10 15:45] VITALS: BP 135/82; PULSE 76; RESP 16; O2SAT 100
== END ==
PROVIDERS: PCP Family Medicine; Referring Provider Internal Medicine Gastroenterology; Visit Provider Internal Medicine Gastroenterology
DX: K50.00 Crohn's disease of small intestine without complications (principal)
CPT/HCPCS: 96365; J7050; A4216; J3380

== ENCOUNTER → 2020-10-20 08:04 | Outpatient (CLI) | payer BC, SELFPAY ==
[2020-09-10 14:35] VITALS: BMI 30.8
[2020-10-20 11:00] LABS: CRP 4.78 mg/L (0.0-3.0)
[2020-10-22 16:58] LABS: Calprotectin, Stool <16 ug/g (0-120)
== END ==
PROVIDERS: PCP Family Medicine; Referring Provider Internal Medicine Gastroenterology; Visit Provider Internal Medicine Gastroenterology
DX: K50.00 Crohn's disease of small intestine without complications (principal); B39.9 Histoplasmosis, unspecified
CPT/HCPCS: 36415; 83993; 86140

== ENCOUNTER → 2020-11-04 07:42 | Outpatient (CLI) | payer BC, SELFPAY ==
[2020-07-09 13:50] VITALS: BMI 31.2
[2020-09-10 14:35] VITALS: BMI 30.8
[2020-11-04 07:58] VITALS: BP 145/87; PULSE 75; RESP 16; TEMP 36.8; O2SAT 98; BMI 30.8
[2020-11-04] MEDS: 0.9% NaCl Peripheral Flush Adult/Peds IV (08:07)
[2020-11-04] MEDS: 0.9% NaCl IVPB Med Flush (250 mL) 15 ML IV (08:07)
[2020-11-04 09:20] VITALS: BP 128/91; PULSE 72; RESP 14; TEMP 36.6; O2SAT 100
== END ==
PROVIDERS: PCP Family Medicine; Referring Provider Internal Medicine Gastroenterology; Visit Provider Internal Medicine Gastroenterology
DX: K50.00 Crohn's disease of small intestine without complications (principal)
CPT/HCPCS: 96365; J7050; A4216; J3380

== ENCOUNTER → 2020-12-16 14:37 | Outpatient (CLI) | payer BC, SELFPAY ==
[2020-09-10 14:35] VITALS: BMI 30.8
[2020-12-16 14:50] VITALS: BP 120/83; PULSE 75; RESP 16; TEMP 36.2; O2SAT 96; BMI 30.8
[2020-12-16] MEDS: 0.9% NaCl Peripheral Flush Adult/Peds IV (14:52)
[2020-12-16] MEDS: 0.9% NaCl IVPB Med Flush (250 mL) 15 ML IV (15:01)
[2020-12-16 15:53] VITALS: BP 127/83; PULSE 81; RESP 16; O2SAT 98
== END ==
PROVIDERS: PCP Family Medicine; Referring Provider Internal Medicine Gastroenterology; Visit Provider Internal Medicine Gastroenterology
DX: K50.00 Crohn's disease of small intestine without complications (principal)
CPT/HCPCS: 96365; J7050; A4216; J3380

== ENCOUNTER → 2021-02-10 12:51 | Outpatient (CLI) | payer BC, SELFPAY ==
[2021-02-10 13:10] VITALS: BP 146/84; PULSE 87; RESP 16; TEMP 36.9; O2SAT 98
[2021-02-10] MEDS: 0.9% NaCl Peripheral Flush Adult/Peds IV (13:13)
[2021-02-10] MEDS: 0.9% NaCl IVPB Med Flush (250 mL) 15 ML IV (13:13)
[2021-02-10 14:17] VITALS: BP 130/71; PULSE 71; RESP 16; TEMP 36.7; O2SAT 98
== END ==
PROVIDERS: PCP Family Medicine; Referring Provider Internal Medicine Gastroenterology; Visit Provider Internal Medicine Gastroenterology
DX: K50.00 Crohn's disease of small intestine without complications (principal)
CPT/HCPCS: 96413; J7050; A4216; J3380

== ENCOUNTER → 2021-03-08 09:42 | Outpatient (CLI) | payer BC, SELFPAY ==
[2021-03-08 12:32] LABS: Hematocrit 47.2 % (40-54); Hemoglobin 16.6 g/dL (13.0-16.5); Mean Corp Hgb Conc 35.2 g/dL (32-36); Mean Corpuscular Hgb 29.1 pg (27.0-32.0); Mean Corpuscular Volume 82.8 fL (80-94); Mean Platelet Vol. 10.4 fl (6.2-12.0); Platelet Count 237 K/mm3 (150-450); RBC Distribution Width CV 12.6 % (11.6-14.6); RBC Distribution Width SD 38.1 fl (35.1-43.9); White Blood Count 6.2 K/mm3 (4.4-11.0)
[2021-03-08 12:43] LABS: AST(SGOT) 17 U/L (15-37); Alanine Aminotransfer ALT/SGPT 24 U/L (16-61); Alkaline Phosphatase 108 U/L (45-117); Bilirubin, Direct 0.13 mg/dL (0.00-0.30); CRP 2.96 mg/L (0.0-3.0); Globulin 3.7 g/dL (2.2-4.2); Protein, Total 7.7 g/dL (6.4-8.2)
[2021-03-10 18:57] LABS: Calprotectin, Stool 147 ug/g (0-120)
== END ==
PROVIDERS: PCP Family Medicine; Referring Provider Internal Medicine Gastroenterology; Visit Provider Internal Medicine Gastroenterology
DX: K52.9 Noninfective gastroenteritis and colitis, unspecified (principal); B39.9 Histoplasmosis, unspecified
CPT/HCPCS: 36415; 80076; 83993; 85027; 86140

== ENCOUNTER → 2021-03-24 13:01 | Outpatient (CLI) | payer BC, SELFPAY ==
[2021-03-24 13:09] VITALS: BP 120/73; PULSE 82; RESP 16; TEMP 36.6; O2SAT 97
[2021-03-24] MEDS: 0.9% NaCl Peripheral Flush Adult/Peds IV (13:18)
[2021-03-24] MEDS: 0.9% NaCl IVPB Med Flush (250 mL) 15 ML IV (13:18)
[2021-03-24 14:20] VITALS: BP 131/78; PULSE 81
== END ==
PROVIDERS: PCP Family Medicine; Referring Provider Internal Medicine Gastroenterology; Visit Provider Internal Medicine Gastroenterology
DX: K50.00 Crohn's disease of small intestine without complications (principal)
CPT/HCPCS: 96413; J7050; A4216; J3380

== ENCOUNTER 2021-05-12 13:01 | Outpatient (CLI) | payer BC, SELFPAY ==
[2021-05-12 13:13] VITALS: BP 124/88; PULSE 85; RESP 16; TEMP 36.2; O2SAT 95; BMI 30.8
[2021-05-12] MEDS: 0.9% NaCl Peripheral Flush Adult/Peds IV (13:18)
[2021-05-12] MEDS: 0.9% NaCl IVPB Med Flush (250 mL) 15 ML IV (13:25)
[2021-05-12 14:20] VITALS: BP 129/81; PULSE 79; RESP 16; TEMP 36.4; O2SAT 96
== END 2021-05-12 23:59 | disposition short-term general hospital (02) ==
LOC: MEDOUTP 13:01
PROVIDERS: PCP Family Medicine; Referring Provider Internal Medicine Gastroenterology; Visit Provider Internal Medicine Gastroenterology
DX: K50.00 Crohn's disease of small intestine without complications (principal)
CPT/HCPCS: 96365; J7050; A4216; J3380

== ENCOUNTER → 2021-12-17 | Outpatient (CLI) | payer BC, SELFPAY | END | disposition home or self-care (01) | PROVIDERS: PCP Family Medicine; Referring Provider Internal Medicine Gastroenterology; Visit Provider Internal Medicine Gastroenterology | DX: R19.7 Diarrhea, unspecified (principal) | CPT/HCPCS: 36415 ==

== ENCOUNTER → 2022-04-14 | Outpatient (CLI) | payer BC, SELFPAY ==
[2022-04-14 10:26] LABS: Absolute Lymphocyte Count 1.47 X10^3/uL (0.83-4.51); Absolute Neutrophil Count 4.3 X10^3/uL (2.0-7.7); Basophil# 0.01 X10^3/uL; Basophil% 0.1 % (0-1); Hematocrit 44.9 % (40-54); Hemoglobin 15.3 g/dL (13.0-16.5); Lymphocyte # 1.47 X10^3/ul (0.83-4.51); Mean Corp Hgb Conc 34.1 g/dL (32-36); Mean Corpuscular Hgb 28.7 pg (27.0-32.0); Mean Corpuscular Volume 84.1 fL (80-94); Mean Platelet Vol. 10.3 fl (6.2-12.0); Monocyte# 0.67 X10^3/uL; NRBC Flagged by Analyzer 0 % (0-5); Neutrophil # 4.29 X10^3/uL (2.7-7.7); Neutrophil % 64.5 % (47-70); Platelet Count 234 K/mm3 (150-450); RBC Distribution Width CV 12.7 % (11.6-14.6); RBC Distribution Width SD 38.5 fl (35.1-43.9); Red Blood Count 5.34 M/mm3 (4.6-6.2); White Blood Count 6.7 K/mm3 (4.4-11.0)
[2022-04-14 10:47] LABS: AST(SGOT) 14 U/L (15-37); Alanine Aminotransfer ALT/SGPT 24 U/L (16-61); Albumin, Serum 3.8 g/dL (3.2-5.0); Alkaline Phosphatase 109 U/L (45-117); Bilirubin, Direct 0.14 mg/dL (0.00-0.30); Globulin 3.4 g/dL (2.2-4.2); Protein, Total 7.2 g/dL (6.4-8.2)
[2022-04-15 20:08] LABS: Hepatitis Be Ag Negative (Negative)
== END | disposition home or self-care (01) ==
LOC: MTLAB 07:13
PROVIDERS: PCP Family Medicine; Referring Provider Internal Medicine Gastroenterology; Visit Provider Internal Medicine Gastroenterology
DX: K50.00 Crohn's disease of small intestine without complications (principal); B39.9 Histoplasmosis, unspecified; K52.89 Other specified noninfective gastroenteritis and colitis
CPT/HCPCS: 36415; 80076; 85025; 86140; 87350

== ENCOUNTER → 2022-04-15 | Outpatient (CLI) | payer BC, SELFPAY ==
[2022-04-18 12:44] LABS: Calprotectin, Stool 168 ug/g (0-120)
== END | disposition home or self-care (01) ==
LOC: MTLAB 07:28
PROVIDERS: PCP Family Medicine; Referring Provider Internal Medicine Gastroenterology; Visit Provider Internal Medicine Gastroenterology
DX: K50.00 Crohn's disease of small intestine without complications (principal); B39.9 Histoplasmosis, unspecified
CPT/HCPCS: 83993

== ENCOUNTER 2022-07-19 05:31 | Emergency (ER) | payer BC, SELFPAY ==
[2022-07-19 05:32] VITALS: BP 176/120; PULSE 90; RESP 14; TEMP 36.4; O2SAT 97; BMI 32.5
--- NOTE | 2022-07-19 05:33 | CT_ITS ---
INDICATION: Kidney Stone EXAMINATION: CT ABDOMEN AND PELVIS WITHOUT CONTRAST TECHNIQUE: Helically acquired images were obtained of the abdomen and pelvis without IV contrast. 2-D reconstructions reviewed. A radiation dose optimization technique was used for this scan. IV Contrast dosage and agent: None. Oral contrast: None. COMPARISON: Contrast-enhanced CT abdomen and pelvis from 08/17/2015 FINDINGS: LOWER CHEST: A few punctate peripheral and subpleural pulmonary nodules again noted. Heart size within normal limits. LIVER: Homogeneous. No discrete mass. GALLBLADDER AND BILIARY TREE: No calcified gallstones identified. No gallbladder wall edema demonstrated. No significant biliary ductal dilation. PANCREAS: No discrete mass or peripancreatic edema. SPLEEN: Normal size without discrete mass. ADRENAL GLANDS: Unremarkable. KIDNEYS AND URETERS: Left renal edema and mild hydroureteronephrosis secondary to 3 mm proximal ureteral stone. Couple small left renal calyceal stones also noted, largest measuring 5 mm. No discrete mass. Small calcified pelvic phleboliths also noted. PERITONEUM: No peritoneal free air or significant free fluid. No other fluid collection. RETROPERITONEUM: No retroperitoneal mass or pathologic fluid collection. BOWEL: Previous proximal colectomy. No abnormal stomach or bowel distension. No focal inflammatory change. LYMPH NODES: No enlarged mesenteric or retroperitoneal lymph nodes. VESSELS: No acute findings. No abdominal aortic aneurysm. URINARY BLADDER: Empty urinary bladder. REPRODUCTIVE ORGANS: No pelvic masses. ABDOMINAL WALL: Small midline upper abdominal ventral fat hernias. BONES: Intact with no suspicious osseous lesion. CT/Abdomen/Pelvis without Cont IMPRESSION: Left nephrolithiasis with mild obstructive uropathy secondary to 3 mm proximal ureteral stone. Punctate pulmonary nodules likely benign post infectious etiology. Follow-up as clinically warranted if concern for metastatic disease. Electronically Signed: Aman Kwon MD at 6:11 EDT ,
--- NOTE | 2022-07-19 05:34 | EX.ED.DYSGE1 ---
HPI History of Present Illness Chief Complaint: Flank Pain Informant: patient Onset/Context/Timing Onset: Today Current Severity: Severe Maximum Severity: Severe Narrative Narrative: Patient presents at 5:30 AM secondary to left flank pain. He states he had an episode of severe pain around 2 AM and it seemed to subside. Pain had again shortly ago. He denies history of kidney stone. He is holding his left flank area describing the area of pain. He states yesterday he felt normal. He has not noted any blood in his urine [facility] Medical History HTN (hypertension) Ulcerative colitis Home Medications amlodipine 2.5 mg tablet 2.5 mg PO DAILY 03/31/17 [History Last Taken Unknown] ketorolac 10 mg tablet 10 mg PO Q8H PRN pain #10 tabs 07/19/22 [Rx Last Taken Unknown] ondansetron 4 mg disintegrating tablet 4 mg PO Q8H PRN PRN Nausea #10 tabs 07/19/22 [Rx Last Taken Unknown] oxycodone-acetaminophen 5 mg-325 mg tablet (Percocet) 1 tab PO Q8H PRN pain 4 days #12 tabs 07/19/22 [Rx Last Taken Unknown] tamsulosin 0.4 mg capsule (Flomax) 0.4 mg PO DAILY #10 caps 07/19/22 [Rx Last Taken Unknown] Allergy/AdvReac Type Severity Reaction Status Date / Time No Known Allergies Allergy Verified 05/12/21 13:19 Family History Mother Colon cancer Other Hypertension Surgical History History of intestine removal Social History Smoking Status: Never smoker alcohol intake: never ROS ROS ED Constitutional Constitutional ED: Denies chills or fever(s) Eyes Eyes: Denies change in vision or discharge from eye(s) ENT ENT ED: Denies discharge from eye(s), rhinorrhea or sore throat Cardiovascular Cardiovascular: Denies chest pain or palpitations Respiratory/Chest Respiratory/Chest: Denies cough or dyspnea Gastrointestinal Gastrointestinal: Reports abdominal pain; Denies diarrhea, nausea or vomiting Genitourinary Genitourinary ED: Denies difficulty urinating or dysuria Musculoskeletal Musculoskeletal: Reports back pain; Denies extremity pain Integumentary Denies Abrasions or rash Neurologic Neurologic: Denies headache(s) or weakness Psychiatric Psychiatric: Denies anxiety or depression Allergic/Immunologic Allergic/Immunologic ED: Denies lip swelling or urticaria EXAM Physical Exam Const Vital Signs: 07/19/22 05:32 07/19/22 05:32 Temperature 97.5 F L 97.6 F L Temperature Source Temporal Temporal Pulse Rate 90 Respiratory Rate 14 Blood Pressure 176/120 H Blood Pressure Mean 138 Pulse Ox 97 Oxygen Delivery Method Room Air Positive well nourished and well developed General Appearance ED: well developed HEENT Reports normocephalic and head/scalp atraumatic Eyes PERRL and EOMs intact bilaterally Neck supple Chest Wall inspection of chest normal and palpation of chest normal Resp normal respiratory effort and clear to auscultation bilaterally Cardio regular rate and regular rhythm GI GI Narrative: Abdomen soft with no focal tenderness to palpation. Palpation: soft Back/Spine General Back: CVA tenderness left Extremity normal to inspection Neuro oriented x3 and no sensory deficits noted Sensorium / Orientation: alert Motor Exam: strength 5/5 throughout Psych Mood & Affect: anxious Skin no rashes or lesions noted MDM MDM MDM Narrative Medical decision making narrative: IV line established. Patient given morphine, Toradol, Zofran, IV fluids. Labwork obtained to evaluate for leukocytosis, anemia, and electrolyte derangement. Urinalysis obtained to evaluate for infection/hematuria. CT flank obtained to evaluate for kidney stone. Lab Data Attestation: I reviewed the patient's lab results. Labs: Laboratory Results - last 24 hr 07/19/22 07/19/22 07/19/22 05:30 05:30 06:34 WBC 9.5 RBC 5.60 Hgb 15.8 Hct 46.3 MCV 82.7 MCH 28.2 MCHC 34.1 RDW Std Deviation 38.5 RDW Coeff of Ramona 12.8 Plt Count 251 MPV 10.1 Immature Gran % (Auto) 0.300 Neut % (Auto) 72.8 H Lymph % (Auto) 17.6 L Nance % (Auto) 7.9 Eos % (Auto) 1.3 Baso % (Auto) 0.1 Absolute Neuts (auto) 6.9 Absolute Lymphs (auto) 1.68 Nucleated RBC % 0 Sodium 138 Potassium 3.7 Chloride 109 H Carbon Dioxide 23.0 Anion Gap 6 BUN 19 H Creatinine 1.15 Estim Creat Clear Calc 88.16 Est GFR (MDRD) Af Amer 90 Est GFR (MDRD) Non-Af 75 BUN/Creatinine Ratio 16.5 Glucose 143 H Calcium 9.4 Urine Color Brown Urine Clarity Turbid Urine pH 5.0 Ur Specific [place] 1.025 Urine Protein 100 H Urine Glucose (UA) Normal Urine Ketones 5 H Urine Occult Blood 250 H Urine Nitrite Negative Urine Bilirubin 1 H Urine Urobilinogen Normal Ur Leukocyte Esterase 25 H Radiography Diagnostic Testing: Clinical Impression(s) from Imaging Studies Abdomen/Pelvis CT 07/19/22 05:33 IMPRESSION: Left nephrolithiasis with mild obstructive uropathy secondary to 3 mm proximal ureteral stone. Punctate pulmonary nodules likely benign post infectious etiology. Follow-up as clinically warranted if concern for metastatic disease. Electronically Signed: Aman Kwon MD at 6:11 EDT , Treatment and Re-Evaluation :: CBC and chemistry studies largely unremarkable. Renal function is normal. Urinalysis reveals evidence of blood but no nitrites and only 25 leukocyte Estrace. Patient did receive a second dose of morphine for continued pain. CT flank reveals a 3 mm proximal left ureter stone. Test results are discussed with patient and at bedside. He will be given a small dose of Dilaudid at this time. He will be written prescription for Percocet, Zofran, Toradol, Flomax. He is referred to Dr. Solomon for follow-up. Return instructions are provided. Discharge Plan Triage Chief Complaint: Flank Pain ED Provider: Karen Mallory Dx/Rx/DC Orders Clinical Impression: Ureterolithiasis Instructions: ED Kidney Stone w/ Colic Prescriptions: New oxycodone-acetaminophen [Percocet] 5-325 mg tablet 1 tab PO Q8H PRN (Reason: pain) 4 Days Qty: 12 0RF ketorolac 10 mg tablet 10 mg PO Q8H PRN (Reason: pain) Qty: 10 0RF ondansetron 4 mg tablet,disintegrating 4 mg PO Q8H PRN PRN (Reason: Nausea) Qty: 10 0RF tamsulosin [Flomax] 0.4 mg capsule 0.4 mg PO DAILY Qty: 10 0RF No Action amlodipine 2.5 mg tablet 2.5 mg PO DAILY Primary Care Provider: Aman Aguilar Referrals: Sky Solomon MD [Med Staff - Active Staff] - 3-5 Days if not improving Aman Aguilar DO [Primary Care Provider] - Disposition Disposition: Home, Self Care
[2022-07-19] MEDS: Morphine 4 MG/ML Syringe IV ×2 (05:38→06:49)
[2022-07-19] MEDS: Ketorolac 30 MG/ML Syringe IV (05:39)
[2022-07-19] MEDS: Ondansetron 4 MG/2 ML Vial IV (05:39)
[2022-07-19 05:50] LABS: Absolute Lymphocyte Count 1.68 X10^3/uL (0.83-4.51); Absolute Neutrophil Count 6.9 X10^3/uL (2.0-7.7); Basophil# 0.01 X10^3/uL; Basophil% 0.1 % (0-1); Eosinophil# 0.12 X10^3/uL; Eosinophils% 1.3 % (0-5); Hematocrit 46.3 % (40-54); Hemoglobin 15.8 g/dL (13.0-16.5); Lymphocyte # 1.68 X10^3/ul (0.83-4.51); Lymphocyte % 17.6 % (19-41); Mean Corp Hgb Conc 34.1 g/dL (32-36); Mean Corpuscular Hgb 28.2 pg (27.0-32.0); Mean Corpuscular Volume 82.7 fL (80-94); Mean Platelet Vol. 10.1 fl (6.2-12.0); Monocyte# 0.75 X10^3/uL; Monocyte% 7.9 % (0-10); NRBC Flagged by Analyzer 0 % (0-5); Neutrophil # 6.94 X10^3/uL (2.7-7.7); Neutrophil % 72.8 % (47-70); Platelet Count 251 K/mm3 (150-450); RBC Distribution Width CV 12.8 % (11.6-14.6); RBC Distribution Width SD 38.5 fl (35.1-43.9); White Blood Count 9.5 K/mm3 (4.4-11.0)
[2022-07-19] MEDS: 0.9% Normal Saline 1,000 ML 250 ML IV (06:11)
[2022-07-19 06:29] LABS: Anion Gap 6 (5-15); BUN 19 mg/dL (7-18); BUN/Creat Ratio 16.5 RATIO (10-20); Calcium,Total 9.4 mg/dL (8.5-10.1); Chloride 109 mmol/L (98-107); Creatinine, Serum 1.15 mg/dL (0.70-1.30); EST Glomerular Filtration Rate 75 mL/min (>60); Est Glom Filt Rate - Afr Amer 90 mL/min (>60); Estimated Creatinine Clearance 88.16 ml/min; Glucose 143 mg/dL (74-106); Potassium 3.7 mmol/L (3.5-5.1); Sodium Level 138 mmol/L (136-145)
[2022-07-19 06:39] LABS: Mucous, Urine 0 SEEN /hpf (<or=2+)
[2022-07-19 06:40] LABS: Color, Urine Brown (Yellow); Glucose, Dipstick Normal (Normal); Ketone-Dipstick 5 mg/dl (Negative); Leukocyte Esterase-Dipstick 25 /ul (Negative); Nitrite-Dipstick Negative (Negative); Occult Blood-Urine 250 /ul (Negative); Protein-Dipstick 100 mg/dl (Negative); Specific Gravity, Urine 1.025 (1.002-1.030); Urine Clarity Turbid (Clear); Urine Urobilinogen Normal (Normal)
[2022-07-19 06:54] LABS: Urine Bilirubin Dipstick 1 mg/dL (Negative)
[2022-07-19] MEDS: HYDROmorphone 0.5 MG/0.5 ML SYRINGE IV (07:22)
[2022-07-19 07:26] LABS: Bacteria 2+ /hpf (None Seen); Red Blood Cells-Urine > 100 SEEN /hpf (0-5); Squamous Epithelial Cells - UA 0-5 SEEN /hpf (0-5); White Blood Cells 0-5 SEEN /hpf (0-5)
[2022-07-19 07:37] VITALS: BP 129/88; PULSE 62; RESP 15; O2SAT 98
== END 2022-07-19 07:37 | disposition home or self-care (01) ==
PROVIDERS: Emergency Provider Emergency Medicine; PCP Family Medicine; Visit Provider Emergency Medicine
DX: N20.2 Calculus of kidney with calculus of ureter (principal); I10 Essential (primary) hypertension
CPT/HCPCS: 36415; 74176; 80048; 81001; 85025; 96361; 96374; 96375; 96376; 99282; J7030; A4216; J2405

== ENCOUNTER → 2022-07-28 | Outpatient (CLI) | payer BC, SELFPAY ==
--- NOTE | 2022-07-28 08:41 | RAD_ITS ---
STUDY: X-RAY - ABDOMEN/PELVIS REASON FOR EXAM: Male, 42 years old. Follow up left kidney stone. TECHNIQUE: Single AP view of the abdomen / pelvis. COMPARISON: April 29, 2015. CT the abdomen and pelvis, July 19, 2022. FINDINGS: Normal visualized lung bases. There is an unremarkable bowel gas pattern. There is no demonstrated free abdominal air. The visualized liver, spleen and kidneys are grossly normal in size and morphology. There is a small linear density overlying the mid left kidney consistent with a larger calcification seen on the recent CT. Small calcification lower pole was not visualized. No other renal, calcifications. No ureteral calcifications. Stable phleboliths are seen in the pelvis. Normal visualized osseous structures. RAD/Abdomen Single View IMPRESSION: Visualization of the larger of the 2 left renal calculi noted on a recent CT. There is no acute intra-abdominal process. Electronically Signed: Panda Adams DO at 17:02 EDT ,
== END | disposition home or self-care (01) ==
LOC: RAD 08:40
PROVIDERS: PCP Family Medicine; Referring Provider Registered Nurse; Visit Provider Registered Nurse
DX: N20.9 Urinary calculus, unspecified (principal)
CPT/HCPCS: 74018

== ENCOUNTER 2022-10-13 10:18 | Outpatient (CLI) | payer BC, SELFPAY | END 2022-10-13 23:59 | disposition home or self-care (01) | LOC: MTLAB 10:20 | PROVIDERS: PCP Family Medicine; Referring Provider Internal Medicine Gastroenterology; Visit Provider Internal Medicine Gastroenterology | DX: K50.00 Crohn's disease of small intestine without complications (principal); B39.9 Histoplasmosis, unspecified | CPT/HCPCS: 36415; 86140 ==

== ENCOUNTER → 2022-11-03 | Outpatient (CLI) | payer BC, SELFPAY ==
[2022-11-03 11:00] LABS: Hepatitis B Surface Antigen Non-Reactive (Nonreactive)
[2022-11-05 14:10] LABS: QNTFERON TB Mitogen Value > 10.00 IU/mL (.); QNTFERON TB Nil Value 0.04 IU/mL (.); QNTFERON TB1+ Ag Value 0.07 IU/mL (.); QNTFERON TB2+ Ag Value 0.06 IU/mL (.); QNTIFERON TB Positive Criteria Negative (Negative)
[2022-11-06 00:06] LABS: Calprotectin, Stool 327 ug/g (0-120)
== END | disposition home or self-care (01) ==
LOC: MTLAB 07:35
PROVIDERS: PCP Family Medicine; Visit Provider Internal Medicine Gastroenterology
DX: K52.9 Noninfective gastroenteritis and colitis, unspecified (principal); B39.9 Histoplasmosis, unspecified
CPT/HCPCS: 36415; 83993; 86480; 87340

== ENCOUNTER → 2022-11-29 | Outpatient (CLI) | payer BC, SELFPAY | END | disposition home or self-care (01) | LOC: SL 09:14 | PROVIDERS: PCP Family Medicine; Referring Provider Family Medicine; Visit Provider Family Medicine | DX: I10 Essential (primary) hypertension (principal); R06.83 Snoring; G47.10 Hypersomnia, unspecified | CPT/HCPCS: 95806 ==

== ENCOUNTER → 2022-12-05 | Outpatient (CLI) | payer BC, SELFPAY | END | disposition home or self-care (01) | PROVIDERS: PCP Family Medicine; Referring Provider Internal Medicine Gastroenterology; Visit Provider Internal Medicine Gastroenterology | DX: Z51.81 Encounter for therapeutic drug level monitoring (principal) | CPT/HCPCS: 36415; 87493 ==

== ENCOUNTER 2023-06-03 19:37 | Emergency (ER) | payer BC, SELFPAY ==
[2023-06-03 19:38] VITALS: BP 141/90; PULSE 102; RESP 16; TEMP 36.7; O2SAT 95; BMI 33.2
--- NOTE | 2023-06-03 19:47 | EX.ED.DYSGE1 ---
HPI <VAZQUEZ Laguna - Last Filed: 06/03/23 21:27> History of Present Illness Chief Complaint: General Illness Narrative Narrative: 43-year-old male with PMH of Crohn's disease on [employer] presents with 2 days of subjective fever, chills, cough, body aches, and diarrhea. He is tolerating p.o. intake and has no nausea, vomiting, abdominal pain. No chest pain or shortness of breath. No sick contacts. He does not smoke. PFSH <VAZQUEZ Laguna - Last Filed: 06/03/23 21:27> PFSH Medical History HTN (hypertension) Ulcerative colitis Home Medications amlodipine 2.5 mg tablet 2.5 mg PO DAILY 03/31/17 [History Last Taken Unknown] ketorolac 10 mg tablet 10 mg PO Q8H PRN pain #10 tabs 07/19/22 [Rx Last Taken Unknown] ondansetron 4 mg disintegrating tablet 4 mg PO Q8H PRN PRN Nausea #10 tabs 07/19/22 [Rx Last Taken Unknown] oxycodone-acetaminophen 5 mg-325 mg tablet (Percocet) 1 tab PO Q8H PRN pain 4 days #12 tabs 07/19/22 [Rx Last Taken Unknown] tamsulosin 0.4 mg capsule (Flomax) 0.4 mg PO DAILY #10 caps 07/19/22 [Rx Last Taken Unknown] Allergy/AdvReac Type Severity Reaction Status Date / Time No Known Allergies Allergy Verified 06/03/23 19:39 Family History Mother Colon cancer Other Hypertension Surgical History History of intestine removal Social History Smoking Status: Never smoker alcohol intake: never ROS <VAZQUEZ Laguna - Last Filed: 06/03/23 21:27> ROS ED ROS Narrative Constitutional: Positive for fever, chills, malaise. CVS: Negative for chest pain. Respiratory: Positive for cough. Negative for shortness of breath. GI: Positive for diarrhea. Negative for abdominal pain, nausea, vomiting. Neuro: Negative for headache. EXAM <VAZQUEZ Laguna - Last Filed: 06/03/23 21:27> Physical Exam Narrative Exam Narrative: CONST: Patient sitting in no acute distress. EYES: Normal inspection. NECK: Normal inspection. RESP: No respiratory distress, CTAB. CVS: Regular rate and rhythm, no murmur, no gallop. SKIN: Color normal, no rash, warm, dry, intact. EXTREMITIES: Normal appearance, no pedal edema. NEURO: Oriented x4. PSYCH: Normal affect. Const Vital Signs: 06/03/23 19:38 Temperature 98.1 F Temperature Source Temporal Pulse Rate 102 H Respiratory Rate 16 Blood Pressure 141/90 H Blood Pressure Mean 107 Pulse Ox 95 Oxygen Delivery Method Room Air <Dr. Rajinder Fitzgerald MD - Last Filed: 06/03/23 21:18> Physical Exam Const Vital Signs: 06/03/23 19:38 Temperature 98.1 F Temperature Source Temporal Pulse Rate 102 H Respiratory Rate 16 Blood Pressure 141/90 H Blood Pressure Mean 107 Pulse Ox 95 Oxygen Delivery Method Room Air MDM <VAZQUEZ Laguna - Last Filed: 06/03/23 21:27> MDM MDM Narrative Medical decision making narrative: History gathered from: Patient and family Patient has 2 days of viral symptoms. He appears well and nontoxic. HR is 102 with otherwise normal vital signs. He has been tolerating p.o. intake and has no clinical signs of dehydration. No meningismus. Heart is regular rate and rhythm around 90 bpm. Lungs are clear. He has a dry cough during exam. Abdomen soft and nontender. Viral swab is positive for influenza A; CXR shows no acute process. I discussed symptomatic care at home and return precautions and he was discharged in stable condition. Differential: Viral illness, pneumonia I have personally performed a face to face assessment of the patient and have reviewed the DARIAN Note. I performed a substantive portion of the visit including all aspects of the following. My barry findings include: History is 43-year-old male history of inflammatory bowel disease. States for the last 2 days he has been feeling well with limited episodes of diarrhea. No nausea or vomiting. No significant abdominal pain. Low-grade fever. No dysuria. Cough of only clear to light green sputum. Exam is [43-year-old male vital signs stable afebrile. Pulse ox 95% on room air no signs hypoxia. H EENT exam unremarkable. Moist mucous membranes. Neck nontender no lymphadenopathy. No meningismus. Lungs clear to auscultation bilaterally. No rales rhonchi or wheezing. Anterior and posterior auscultation. Back nontender. Chest wall nontender. Heart rate about 95 no murmur. Abdomen soft nontender. No peritoneal signs. Moving all 4 extremities. Calves are nontender without edema or cords. Neurologically is awake and alert with no focal motor deficits.] Medical Decision Making [43-year-old male with inflammatory bowel disease. Complaining of diarrhea and a cough. This may be a viral syndrome. He has had a history of histoplasmosis in the past.] Other additions or changes: [None] <Dr. Rajinder Fitzgerald MD - Last Filed: 06/03/23 21:18> [facility] Narrative Medical decision making narrative: I have personally performed a face to face assessment of the patient and have reviewed the DARIAN Note. I performed a substantive portion of the visit including all aspects of the following. My barry findings include: History is 43-year-old male history of inflammatory bowel disease. States for the last 2 days he has been feeling well with limited episodes of diarrhea. No nausea or vomiting. No significant abdominal pain. Low-grade fever. No dysuria. Cough of only clear to light green sputum. Exam is [43-year-old male vital signs stable afebrile. Pulse ox 95% on room air no signs hypoxia. H EENT exam unremarkable. Moist mucous membranes. Neck nontender no lymphadenopathy. No meningismus. Lungs clear to auscultation bilaterally. No rales rhonchi or wheezing. Anterior and posterior auscultation. Back nontender. Chest wall nontender. Heart rate about 95 no murmur. Abdomen soft nontender. No peritoneal signs. Moving all 4 extremities. Calves are nontender without edema or cords. Neurologically is awake and alert with no focal motor deficits.] Medical Decision Making [43-year-old male with inflammatory bowel disease. Complaining of diarrhea and a cough. This may be a viral syndrome. He has had a history of histoplasmosis in the past.] Other additions or changes: [None] Radiography Chest X-Ray - ED: 1 View, Read by ED Physician, Heart, Lungs, Mediastinum, Bony Structures and No Acute Disease Diagnostic Testing: Chest x-ray, portable, single view, interpreted by myself shows no acute abnormality. Normal cardiac silhouette. Normal lung peterson. No infiltrate or pneumonia. No effusions. Discharge Plan Triage Chief Complaint: General Illness ED Midlevel Provider: Jia Jackson ED Provider: Rajinder Fitzgerald Dx/Rx/DC Orders Clinical Impression: Influenza A Instructions: ED Influenza (Adult) Prescriptions: No Action amlodipine 2.5 mg tablet 2.5 mg PO DAILY oxycodone-acetaminophen [Percocet] 5-325 mg tablet 1 tab PO Q8H PRN (Reason: pain) 4 Days Qty: 12 0RF ketorolac 10 mg tablet 10 mg PO Q8H PRN (Reason: pain) Qty: 10 0RF ondansetron 4 mg tablet,disintegrating 4 mg PO Q8H PRN PRN (Reason: Nausea) Qty: 10 0RF tamsulosin [Flomax] 0.4 mg capsule 0.4 mg PO DAILY Qty: 10 0RF Primary Care Provider: Aman Aguilar Referrals: Aman Aguilar, [Primary Care Provider] - Activity Restrictions/Additional Instructions: You have influenza A. Rest, drink plenty fluids, and take Tylenol and Motrin. Disposition Disposition: Home, Self Care
[2023-06-03] MEDS: Ketorolac 15 MG/ML Vial IM (19:53)
--- OUTSIDE RECORDS SUMMARY | 2023-06-03 20:01 | XMS RPT_ITS | CCD ---
Author Name Unknown Address [address] [place] [address] Organization [facility] Care Team Providers Care Skinner Pelts Name Role Phone Saroj Rudolph Unavailable Unavailable PROVIDER, UNKNOWN Unavailable Unavailable SATNAM CHOE Unavailable Unavailable SATNAM CHOE Unavailable Unavailable NO REFERRING DR Unavailable Unavailable SATNAM CHOE Unavailable Unavailable SATNAM CHOE Unavailable Unavailable SAROJ RUDOLPH Unavailable Unavailabl e SAROJ RUDOLPH Unavailable Unavailabl norman Pending Provider Unavailable Unavailable Unavailable Unavailable Medications Completed/Discontinued Medications Medication Drug Class(es) Dates Sig (Normalized) Sig (Original) loperamide hydrochloride 2 mg oral capsule (4 sources) Opioid Agonist Start: 11-30-2021 Loperamide HCl - 2 MG Oral Capsule take 1 - 2 capsules up to 4 times a day as needed. Max per day is 8 Quantity: 240 Refills: 6 Ordered: 30-Nov-2021 Colin Choi MD Start : 30-Nov-2021 Active tofacitinib 10 mg oral tablet (4 sources) take 1 tablet by mouth twice daily Xeljanz 10 MG Oral Tablet Take 1 tablet twice daily Quantity: 0 Refills: 0 Ordered: 30-Nov-2021 DO Active vedolizumab 300 mg injection (4 sources) Integrin Receptor Antagonist Entyvio 300 MG Intravenous Solution Reconstituted INFUSE 300 MG Intravenous mixed in 250 mL 0.9% Normal Saline to infuse over 30 minutes every 6 weeks. Quantity: 0 Refills: 0 Ordered: 30-Nov-2021 DO Active Problems Problem Classification Problem Date Documented Da te Episodic/Chronic Abdominal pain (6 sources) Unspecified abdominal pain; Translations: [Lower abdominal pain] Onset: 03-22-2016 Episodic Other gastrointestinal disorders (2 sources) Diarrhea; Translations: [Diarrhea] Episodic Regional enteritis and ulcerative colitis (5 sources) Crohn's disease of small intestine without complications; Translations: [Crohn's disease] Onset: 03-22-2016 Chronic Results Test Name Value Interpretation Reference Range Facil ity Vital Signs Date Time Vital Sign Value Performing Clinician Faci lity 11-30-2021 10:33-0400 Body height 173.99 cm Colin Choi MD Work Phone: [facility] Work Phone: 11-30-2021 10:33-0400 Body mass index (BMI) [Ratio] 31.53 kg/m2 Colin Choi MD Work Phone: [facility] Work Phone: 11-30-2021 10:33-0400 Body surface area Derived from formula 2.1 m2 Colin Choi MD Work Phone: [facility] Work Phone: 11-30-2021 10:33-0400 Body temperature 97.8 [degF] Colin Choi MD Work Phone: [facility] Work Phone: 11-30-2021 10:33-0400 Body weight 95.44 kg Colin Choi MD Work Phone: [facility] Work Phone: 11-30-2021 10:33-0400 Diastolic blood pressure 97 mm[Hg] Colin Choi MD Work Phone: [facility] Work Phone: 11-30-2021 10:33-0400 Heart rate 97 /min Colin Choi MD Work Phone: [facility] Work Phone: 11-30-2021 10:33-0400 Respiratory rate 20 /min Colin Choi MD Work Phone: [facility] Work Phone: 11-30-2021 10:33-0400 SaO2% (BldA) [Mass fraction] 97 % Colin Choi MD Work Phone: [facility] Work Phone: 11-30-2021 10:33-0400 Systolic blood pressure 144 mm[Hg] Colin Choi MD Work Phone: [facility] Work Phone: [id number] Colin Choi MD Work Phone: [facility] Work Phone: Encounters Encounter Date Encounter Type Care Provider Facility Start: 12-08-2021 Chart Update Colin Choi MD Work Phone: [facility] Work Phone: Start: 12-01-2021 Chart Update Colin Choi MD Work Phone: [facility] Work Phone: Start: 11-30-2021 Current tobacco non- user cad cap copd pv dm Colin Choi MD Work Phone: [facility] Work Phone: Start: 01-04-2017 Ambulatory Saroj Rudolph [facility] Start: 09-27-2016 End: 09-28-2016 Ambulatory SAROJ RUDOLPH [facility] Start: 03-22-2016 End: 03-24-2016 Evaluation and management of inpatient SATNAM CHOE Facility:[facility] Procedures Date Procedure Procedure Detail Performing Clinician Start: 03-22-2016 EXCISION CECUM PERQ ENDO PROVIDER UNKNOWN Start: 03-22-2016 EXCISION OF ILEUM PERQ E PROVIDER UNKNOWN Colonoscopy Colin Choi MD Work Phone: Esophagogastroduodenoscopy J indigo Choi MD Work Phone: Small intestine excision Enrique Choi MD Work Phone: Immunizations Immunization Date Immunization Notes Care Provider Fa cility 08-13-2020 Moderna COVID-19 Vac cine 100 MCG/0.5ML Intramuscular Suspension Colin Choi MD Work Phone: [facility] Work Phone: 07-16-2020 Moderna COVID-19 Vac cine 100 MCG/0.5ML Intramuscular Suspension Colin Choi MD Work Phone: [facility] Work Phone: 05-01-2002 TD(adult) unspecifie d formulation Colin Choi MD Work Phone: [facility] Work Phone: 08-03-1994 measles, mumps and rubella virus vaccine Colin Choi MD Work Phone: [facility] Work Phone: 07-16-1987 diphtheria, tetanus toxoids and pertussis vaccine Colin Choi MD Work Phone: [facility] Work Phone: 03-17-1984 trivalent poliovirus vaccine, live, oral Colin Choi MD Work Phone: [facility] Work Phone: 09-14-1983 diphtheria, tetanus toxoids and pertussis vaccine Colin Choi MD Work Phone: [facility] Work Phone: 06-15-1983 measles, mumps and rubella virus vaccine Colin Choi MD Work Phone: [facility] Work Phone: 1982 diphtheria, tetanus toxoids and pertussis vaccine Colin Choi MD Work Phone: [facility] Work Phone: 1982 trivalent poliovirus vaccine, live, oral Colin Choi MD Work Phone: [facility] Work Phone: 1982 diphtheria, tetanus toxoids and pertussis vaccine Colin Choi MD Work Phone: [facility] Work Phone: 1982 trivalent poliovirus vaccine, live, oral Colin Choi MD Work Phone: [facility] Work Phone: 1982 diphtheria, tetanus toxoids and pertussis vaccine Colin Choi MD Work Phone: [facility] Work Phone: 1982 trivalent poliovirus vaccine, live, oral Colin Choi MD Work Phone: [facility] Work Phone: Payers Date Payer Category Payer Policy ID Unknown Unknown [id number] Social History Date Type Detail Facility Never a smoker Never a smoker [facility] Work Phone: History of Present illness Narrative 07-09-2014 Note Date & Type Note Facility 07-09-2014 History of Present illness Narrative [employer] visit for this 41 year old male diagnosed with UC at age 18 and initially maintained on Asacol for many years, but also tried sulfasalazine. He did not think that either were particularly helpful. (+) 1st degree CRC- mother with CRC at age of 62.Patient lost his follow up from 2009 to 2014 due to insurance issues.Patient saw Dr. Saroj Rudolph on 07/2014. 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 He was started on Humira and AZA 150 mg.05/2015 presented to [facility] with fever, abdominal pain and diarrhea. His WBC < 3. Patient was admitted and started on IV steroids (no source of infection was identified). CT scan showed active inflammation at TI and right side colon. Colonoscopy showed erythema and ulceration at terminal Ileum, IC valve and cecum. Some scarring at sigmoid colon and rectum. Pathology with: TI: erosive Ileitis with numerous granuloma (GMS stain: numerous budding yeast suggestive of Histoplasma); random colon biopsies: chronic inactive colitis. Both Humira and AZA were discontinued and patient was switched to Sulfasalazine. Iitraconazole was started for Histoplasmosis and patient was transferred to [facility] for further management of histoplasmosis.09/2015 colonoscopy showed same chronic ulcerations and active disease in colon; 12/2015 Humira was resumed.03/2016 underwent Ileocecal resection at [facility] given lack of clinical response to Humira.12/2016 colonoscopy normal mucosa in rhiannon-terminal ileum; erythema and nodularity seen in sigmoid colon.04/2017, Humira switched with Entyvio and patient was started again on Imuran 100 mg daily.06/2019 colonoscopy with active inflammation and erythema in the rectosigmoid junction. Entyvio was increased to Q6 week03/2021 colonoscopy mild erythema, congestion and granularity in the rectum. Pathology-TI: unremarkable; right colon: nremarkable; left Colon: chronic active colitis.Last FCP: 147 on 03/2021.At last visit with Dr. Rudolph 08/2021 patient is still complaining of 6 - 7 BM every day. Patient was started Xeljanz on 09/2021.In the office today, patient stated that he is at his baseline. He has 6 BM every day on average. This is associated with urgency but no other pertinent symptoms. Of note, patient has been off Xeljanz for 1 month and his Entyvio was postponed due to insurance issues; now at 89 weeks post-treatment. Patient denied any EIM of IBD. [facility]aw[facility] l 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 He did not think that either were particularly helpful. (+) 1st degree CRC- mother with CRC at age of 62.Patient lost his follow up from 2009 to 2014 due to insurance issues.Patient saw Dr. Saroj Rudolph on 07/2014. 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 He was started on Humira and AZA 150 mg.05/2015 presented to [facility] with fever, abdominal pain and diarrhea. His WBC < 3. Patient was admitted and started on IV steroids (no source of infection was identified). CT scan showed active inflammation at TI and right side colon. Colonoscopy showed erythema and ulceration at terminal Ileum, IC valve and cecum. Some scarring at sigmoid colon and rectum. Pathology with: TI: erosive Ileitis with numerous granuloma (GMS stain: numerous budding yeast suggestive of Histoplasma); random colon biopsies: chronic inactive colitis. Both Humira and AZA were discontinued and patient was switched to Sulfasalazine. Iitraconazole was started for Histoplasmosis and patient was transferred to [facility] for further management of histoplasmosis.09/2015 colonoscopy showed same chronic ulcerations and active disease in colon; 12/2015 Humira was resumed.03/2016 underwent Ileocecal resection at [facility] given lack of clinical response to Humira.12/2016 colonoscopy normal mucosa in rhiannon-terminal ileum; erythema and nodularity seen in sigmoid colon.04/2017, Humira switched with Entyvio and patient was started again on Imuran 100 mg daily.06/2019 colonoscopy with active inflammation and erythema in the rectosigmoid junction. Entyvio was increased to Q6 week03/2021 colonoscopy mild erythema, congestion and granularity in the rectum. Pathology-TI: unremarkable; right colon: nremarkable; left Colon: chronic active colitis.Last FCP: 147 on 03/2021.At last visit with Dr. Rudolph 08/2021 patient is still complaining of 6 - 7 BM every day. Patient was started Xeljanz on 09/2021.In the office today, patient stated that he is at his baseline. He has 6 BM every day on average. This is associated with urgency but no other pertinent symptoms. Of note, patient has been off Xeljanz for 1 month and his Entyvio was postponed due to insurance issues; now at 89 weeks post-treatment. Patient denied any EIM of IBD. [facility] Work Phone: Chief complaint Narrative - Reported Note Date & Type Note Facility Chief complaint Narrative - Reported New patient visit for consultation re: Crohn's [facility]Iivxfdfcbxnogdjy-Ksepjg l [facility] Work Phone: Chief complaint Narrative - Reported Note Date & Type Note Facility Chief complaint Narrative - Reported New patient visit for consultation re: Crohn's [facility] Work Phone: Summary Purpose Family History Unknown Family Member Name Dates Details Family history of cardiac di sorder: Father(V17.49, Z82.49) Status:Active : Mother Status:Active Family history of colon canc er: Mother(V16.0, Z80.0) Status:Active Unknown Family Member Name Dates Details Family history of cardiac di sorder: Father(V17.49, Z82.49) Status:Active : Mother Status:Active Family history of colon canc er: Mother(V16.0, Z80.0) Status:Active Unknown Family Member Name Dates Details Family history of cardiac di sorder: Father(V17.49, Z82.49) Status:Active : Mother Status:Active Family history of colon canc er: Mother(V16.0, Z80.0) Status:Active Unknown Family Member Name Dates Details Family history of colon canc er: Mother(V16.0, Z80.0) Status:Active : Mother Status:Active Family history of cardiac di sorder: Father(V17.49, Z82.49) Status:Active Advance Directives No Advanced Directives Records FoundNo Advanced Directives Records FoundNo Advanced Directives Records FoundNo Advanced Directives Records FoundNo Advanced Directives Records Found Additional Source Comments (unrecognized sect ion and content) No Status Records FoundNo Status Records FoundNo Status Records FoundNo Status Records FoundNo Status Records Found INFORMATION SOURCE (unrecogn ized section and content) DATE CREATED AUTHOR AUTHOR'S ORGANIZ ATION 10/04/2017 Adrian [facility] DATE CREATED AUTHOR AUTHOR'S ORGANIZ ATION 10/04/2017 Adrian [facility] DATE CREATED AUTHOR AUTHOR'S ORGANIZ ATION 12/03/2021 [employer] DATE CREATED AUTHOR AUTHOR'S ORGANPRACHI ATION 12/05/2021 [facility] FOR RECORDS PERTAINING TO PATIENTS WHO ARE OR HAVE BEEN ENROLLED IN A CHEMICAL DEPENDENCY/SUBSTANCEABUSE PROGRAM, SOME INFORMATION MAY BE OMITTED. This clinical summary was aggregated from multiple sources. Caution should be exercised in using it in the provision of clinical care. This summary normalizes information from multiple sources, and as a consequence, information in this document may materially change the coding, format and clinical context of patient data. In addition, data may be omitted in some cases. CLINICAL DECISIONS SHOULD BE BASED ON THE PRIMARY CLINICAL RECORDS. [facility] [employer] provides no warranty or guarantee of the accuracy or completeness of information in this document.
--- NOTE | 2023-06-03 21:05 | RAD_ITS ---
STUDY: X-RAY CHEST REASON FOR EXAM: Male, 43 years old. LOW GRADE FEVER, BODY ACHES, COUGH, DIARRHEA SINCE YESTERDAY TECHNIQUE: AP COMPARISON: 06/22/2015. FINDINGS: The lungs are clear and expanded. There is no demonstrated pleural abnormality. Normal size heart. Normal mediastinum and frandy. Normal visualized pulmonary arteries. Normal visualized aortic arch and descending thoracic aorta. Normal visualized thoracic spine. Normal visualized ribs, clavicles, and shoulders. There is no demonstrated abnormality of the visualized soft tissue structures of the upper abdomen. RAD/Chest 1 View (Portable) IMPRESSION: Nonacute portable x-ray examination of the chest. Electronically Signed: Jose Contreras MD (Brooks) at 21:25 EST ,
[2023-06-03 21:34] VITALS: BP 133/90; PULSE 80; RESP 18; TEMP 37.1; O2SAT 97
== END 2023-06-03 21:35 | disposition home or self-care (01) ==
PROVIDERS: Emergency Provider Emergency Medicine; PCP Family Medicine; Visit Provider Emergency Medicine
DX: J10.1 Influenza due to other identified influenza virus with other respiratory manifestations (principal); K51.90 Ulcerative colitis, unspecified, without complications; R19.7 Diarrhea, unspecified; I10 Essential (primary) hypertension; Z79.899 Other long term (current) drug therapy
CPT/HCPCS: 71045; 87631; 96372; 99282

== ENCOUNTER → 2023-06-22 | Outpatient (CLI) | payer BC, SELFPAY ==
[2023-06-22 15:50] LABS: ALB/GLOB Ratio 1.1 RATIO (0.9-2.4); AST(SGOT) 15 U/L (15-37); Alanine Aminotransfer ALT/SGPT 32 U/L (16-61); Albumin, Serum 3.9 g/dL (3.2-5.0); Alkaline Phosphatase 104 U/L (45-117); Anion Gap 7 (5-15); BUN 18 mg/dL (7-18); BUN/Creat Ratio 18.7 RATIO (10-20); CRP 7.14 mg/L (0.0-3.0); Calcium,Total 9.1 mg/dL (8.5-10.1); Chloride 108 mmol/L (98-107); Creatinine, Serum 0.96 mg/dL (0.70-1.30); EST Glomerular Filtration Rate 91 mL/min (>60); Est Glom Filt Rate - Afr Amer 110 mL/min (>60); Globulin 3.5 g/dL (2.2-4.2); Glucose 120 mg/dL (74-106); Potassium 3.7 mmol/L (3.5-5.1); Protein, Total 7.4 g/dL (6.4-8.2); Sodium Level 141 mmol/L (136-145)
== END | disposition home or self-care (01) ==
PROVIDERS: PCP Family Medicine
DX: K51.90 Ulcerative colitis, unspecified, without complications (principal); Z80.0 Family history of malignant neoplasm of digestive organs
CPT/HCPCS: 36415; 80053; 86140

== ENCOUNTER → 2023-06-23 | Outpatient (CLI) | payer BC, SELFPAY ==
--- OUTSIDE RECORDS SUMMARY | 2023-06-23 13:33 | XMS RPT_ITS | CCD ---
Author Name Unknown Address [address] [place] [address] Organization [facility] Care Team Providers Care Rn Neurosurgical Name Role Phone Saroj Rudolph Unavailable Unavailable [...] Chart Update Colin Choi MD Work Phone: [facility]crjxceml[facility]hnrpka[facility] Work Phone: Start: 12-01-2021 Chart Update Colin Choi MD Work Phone: CX-Odgtrbbsleaujcug[facility] Work Phone: Start: 11-30-2021 Current tobacco non- user cad cap copd pv dm Colin Choi MD Work Phone: [facility] Work Phone: Start: 01-04-2017 Ambulatory Saroj Rudolph [facility] Start: 09-27-2016 End: 09-28-2016 Ambulatory SAROJ RUDOLPH [facility] Start: 03-22-2016 End: 03-24-2016 Evaluation and management of inpatient SATNAM CHOE Facility:[facility] Procedures Date Procedure Procedure Detail Performing Clinician [...] Payer Category Payer Policy ID Unknown Unknown [id number] Social History Date Type Detail Facility Never a smoker Never a smoker [facility] Work Phone: History of Present illness Narrative 07-09-2014 Note Date & Type Note Facility 07-09-2014 History of Present illness Narrative [employer] visit for this 41 year old male [...] Humira and AZA 150 mg.05/2015 presented to [facility] with fever, abdominal pain and diarrhea. His [...] for Histoplasmosis and patient was transferred to [facility] for further management of histoplasmosis.09/2015 colonoscopy showed same chronic ulcerations and active disease in colon; 12/2015 Humira was resumed.03/2016 underwent Ileocecal resection at [facility] given lack of clinical response to Humira.12/2016 [...] post-treatment. Patient denied any EIM of IBD. [facility]-Uixdioxnrmwzrbtz-Yvvxal l 6 [facility] Work Phone: History of Present illness Narrative 07-09-2014 Note Date & Type Note Facility 07-09-2014 History of Present illness Narrative IN[employer] visit for this 41 year old male [...] Humira and AZA 150 mg.05/2015 presented to [facility] with fever, abdominal pain and diarrhea. His [...] for Histoplasmosis and patient was transferred to [facility] for further management of histoplasmosis.09/2015 colonoscopy showed same chronic ulcerations and active disease in colon; 12/2015 Humira was resumed.03/2016 underwent Ileocecal resection at [facility] given lack of clinical response to Humira.12/2016 [...] post-treatment. Patient denied any EIM of IBD. [facility] Work Phone: Chief complaint Narrative - Reported Note Date & Type Note Facility Chief complaint Narrative - Reported New patient visit for consultation re: Crohn's [facility]Y-Bwapxublxreprqsw-Yoblym l 6 [facility] Work Phone: Chief complaint Narrative - Reported Note Date & Type Note Facility Chief complaint Narrative - Reported New patient visit for consultation re: Crohn's [facility] Work Phone: Summary Purpose Family History Unknown [...] CREATED AUTHOR AUTHOR'S ORGANIZ ATION 10/04/2017 Adrian [facility] DATE CREATED AUTHOR AUTHOR'S ORGANIZ ATION 10/04/2017 Adrian [facility] DATE CREATED AUTHOR AUTHOR'S ORGANIZ ATION 12/03/2021 [employer] DATE CREATED AUTHOR AUTHOR'S ORGANPRACHI ATION 12/05/2021 [facility] FOR RECORDS PERTAINING TO PATIENTS WHO ARE [...] BE BASED ON THE PRIMARY CLINICAL RECORDS. [facility] [employer] provides no warranty or guarantee of the accuracy or completeness of information in this document.
[2023-06-26 21:07] LABS: Calprotectin, Stool 263 ug/g (0-120)
== END | disposition home or self-care (01) ==
LOC: MTLAB 11:20
PROVIDERS: PCP Family Medicine
DX: K51.90 Ulcerative colitis, unspecified, without complications (principal); Z80.0 Family history of malignant neoplasm of digestive organs
CPT/HCPCS: 83993

== ENCOUNTER → 2023-07-12 | Outpatient (CLI) | payer BC, SELFPAY | END | disposition home or self-care (01) | PROVIDERS: PCP Family Medicine; Referring Provider Family Medicine; Visit Provider Family Medicine | DX: G47.10 Hypersomnia, unspecified (principal); R06.83 Snoring; I10 Essential (primary) hypertension | CPT/HCPCS: 95810 ==

== ENCOUNTER → 2023-07-27 | Outpatient (CLI) | payer BC, SELFPAY | END | disposition home or self-care (01) | LOC: SL 09:52 | PROVIDERS: PCP Family Medicine; Visit Provider Family Medicine | DX: G47.33 Obstructive sleep apnea (adult) (pediatric) (principal) ==

== ENCOUNTER 2024-02-09 02:52 | Emergency (ER) | payer BC, SELFPAY ==
[2024-02-09 02:54] VITALS: BP 147/89; PULSE 81; RESP 16; TEMP 37.2; O2SAT 98; O2SAT 99; BMI 32.2
--- NOTE | 2024-02-09 03:25 | EDS_ITS ---
HPI HPI - URI History of Present Illness Chief Complaint: Cough Informant: patient Onset/Context/Timing Onset: Days Context: Gradual Onset Timing: Continuous Current Severity: Mild Maximum Severity: Mild Associated Symptoms Associated Symptoms: Positive for Nasal Congestion, Nausea, Diarrhea and Productive Cough (Yellow sputum. No blood.); Negative for Vomiting Narrative Narrative: 43-year-old male past medical history of ulcerative colitis and Crohn's. On activity a. States since Monday evening he has had a cough fever as high as 101.2 muscle aches with nausea but no vomiting. Watery diarrhea. Productive cough of yellow phlegm. No hemoptysis. Prior similar symptoms: Yes Recent Illness/Hospitalization: No ROS ROS ED ROS Narrative Cough. Yellow sputum. Nausea. No vomiting. Diarrhea. Constitutional Constitutional ED: Denies chills ENT ENT ED: Denies ear pain Cardiovascular Cardiovascular: Denies chest pain Respiratory/Chest Respiratory/Chest: Reports cough and sputum Gastrointestinal Gastrointestinal: Reports diarrhea and nausea; Denies abdominal pain, constipation, melena or vomiting Genitourinary Genitourinary ED: Denies dysuria or hematuria Musculoskeletal Musculoskeletal: Denies arthralgias Integumentary Denies abscess Neurologic Neurologic: Denies headache(s) Psychiatric Psychiatric: Denies anxiety Endocrine Endocrinology: Denies cold intolerance Hematologic/Lymphatic Hematologic/Lymphatic: Denies easy bleeding Allergic/Immunologic Allergic/Immunologic ED: Denies mouth swelling PFSH PFSH Medical History HTN (hypertension) Ulcerative colitis Home Medications ?Medication ?Instructions ?Recorded ?Last Taken ?Type azithromycin 250 mg tablet 250 mg PO DAILY 4 days #4 tabs 02/09/24 Unknown Rx (Zithromax Z-Norbert) Allergy/AdvReac Type Severity Reaction Status Date / Time No Known Allergies Allergy Verified 06/03/23 19:39 Family History Mother Colon cancer Other Hypertension Surgical History History of intestine removal Social History Smoking Status: Never smoker alcohol intake: never EXAM Physical Exam Narrative Exam Narrative: 43-year-old male no acute distress. Vital signs stable afebrile. Pulse ox 98% on room air no hypoxia. He does not look septic or toxic. Does not look dehydrated. He does have a dry cough. H EENT exam posterior pharynx is unremarkable. Moist mucous membranes. No erythema or exudate. No trouble swallowing or breathing. Neck nontender. No JVD. No lymphadenopathy. No meningismus. Lungs dry cough. No rales, rhonchi or wheezing. Equal symmetrical. No distress. Heart regular rhythm rate about 80 no murmur. Chest wall ribs nontender. Abdomen soft nontender. No peritoneal signs. Back nontender. Moving all 4 extremities. Normal motor strength. No edema. No d eformity. He is awake and alert. Answering questions following commands. Const Vital Signs: 02/09/24 02:54 02/09/24 02:54 Temperature 99 F Temperature Source Oral Pulse Rate 81 Respiratory Rate 16 Respiratory Effort Normal Non-Labored Respiratory Depth Normal Respiratory Pattern Normal Blood Pressure 147/89 H Blood Pressure Mean 108 Pulse Ox 98 Oxygen Delivery Method Room Air Room Air Positive well nourished and well developed; Negative for cachectic or contractures General Appearance ED: well developed and NAD; Negative for cachectic, contractures, cyanotic, diaphoretic or pallor Nutritional Appearance: Negative for cachectic HEENT Reports moist mucous membranes normocephalic and atraumatic Face and Sinus: Negative for sinus tenderness Throat: posterior oropharynx normal Eyes PERRL and EOMs intact bilaterally Neck no lymphadenopathy, supple, no meningeal signs and no JVD Resp normal respiratory effort and clear to auscultation bilaterally Resp Narrative: Dry cough. Auscultation: Negative for rales, rhonchi, wheezes or diminished lung sounds Cardio S1 normal heart sound, S2 normal heart sound and no murmurs Rate: regular rate Rhythm: regular rhythm GI non-tender, non-distended and no masses Auscultation: normoactive bowel sounds Palpation: soft; Negative for tender Back/Spine no CVA tenderness and normal ROM General Back: Negative for CVA tenderness Cervical Spine: Negative for cervical spine tenderness Thoracic Spine / Upper Back: Negative for thoracic spinal tenderness Lumbar Spine / Lower Back: Negative for lumbar spinal tenderness Sacrum: Negative for tenderness Extremity normal to inspection and full ROM General Extremety ED: Negative for cyanosis, tenderness or other findings General Extremity: Negative for cyanosis or other findings Neuro oriented x3 and CN's II-XII intact bilaterally Sensorium / Orientation: alert, oriented to person, oriented to place and oriented to time Motor Exam: strength 5/5 throughout Psych mental status grossly normal Appearance: Negative for other Attitude: No agitated Mood & Affect: Negative for depressed, anxious or tearful Skin General Skin Exam: Negative for jaundice or pallor Lesions: no lesions Rashes: no rashes Trauma: Negative for abrasion, laceration, puncture or other MDM MDM MDM Narrative Medical decision making narrative: [id number] a cough for the last 3 days. Exam benign. Does not look dehydrated. Does not need labs. Due to him being on an immunosuppressant for his inflammatory bowel disease chest x-ray will be obtained to evaluate for possible pneumonia. I do not think he needs any labs. Nor IV fluids. Repeat exam at 3:39 AM unchanged. I went over the x-ray results with patient. Clinically I feel he has a left lower lobe pneumonia. He will be started on Zithromax Z-NORBERT. Treated for community-acquired pneumonia. First dose given in the ER. Fluids. Rest. Tylenol for fever. Follow-up if not proving or return if worse. History & Record Review Discussion w/independent historian: Patient Additional record(s) reviewed:: Prior inpatient record, Prior outpatient record and Prior ED visit Radiography Chest X-Ray - ED: 2 View, Read by ED Physician, Normal, Heart, Mediastinum, Bony Structures and Left Infiltrate (Left lower lobe infiltrate/pneumonia.) Diagnostic Testing: Chest x-ray, 2 views, AP and lateral, interpreted by myself shows left lower lobe infiltrate/pneumonia. Will be treated with antibiotics and discharged. Discharge Plan Triage Chief Complaint: Cough ED Provider: Rajinder Fitzgerald Dx/Rx/DC Orders Clinical Impression: Pneumonia, History of Crohn's disease Instructions: ED Pneumonia (Adult) Prescriptions: New azithromycin [Zithromax Z-Nrobert] 250 mg tablet 250 mg PO DAILY 4 Days Qty: 4 0RF Rx Instructions: start on day 2 of therapy Primary Care Provider: Aman Aguilar Referrals: Aman Aguilar, [Primary Care Provider] - 3-5 Days if not improving Activity Restrictions/Additional Instructions: You have a left lower lobe pneumonia. Plenty of fluids and rest. Alternate Tylenol and Motrin for any fever. He will be started on antibiotic Zithromax. You were given the first dose in the ER. You only have to take 1 pill for the next 4 days starting on Monday because tonight's dose was your Monday dose. Follow-up with your doctor to ensure you are improving if you are feeling a lot worse return. Print Language: German Disposition Disposition: Home, Self Care
--- NOTE | 2024-02-09 03:25 | RAD_ITS ---
EXAM: XR CHEST, 2 VIEWS CLINICAL INDICATION: cough TECHNIQUE: Frontal and lateral views of the chest. COMPARISON: 06/03/2023. FINDINGS: LUNGS AND PLEURAL SPACES: Mild patchy opacity in the left mid to lower lung may be due to pneumonia. No pneumothorax. No effusion. HEART: Unremarkable. Cardiac silhouette not enlarged. MEDIASTINUM: Central airways and mediastinal contour are unremarkable. BONES/JOINTS: Unremarkable. No acute fracture. SOFT TISSUES: Unremarkable. RAD/Chest PA and Lateral IMPRESSION: Mild patchy opacity in the left mid to lower lung may be due to pneumonia. Electronically Signed: Han Timmons MD at 4:18 EDT ,
[2024-02-09 03:43] VITALS: BP 107/94; PULSE 85; RESP 18; TEMP 37.2; O2SAT 93
[2024-02-09] MEDS: Azithromycin 250 MG Tablet 500 MG PO (03:44)
== END 2024-02-09 03:46 | disposition home or self-care (01) ==
PROVIDERS: Emergency Provider Emergency Medicine; PCP Family Medicine; Visit Provider Emergency Medicine
DX: J18.9 Pneumonia, unspecified organism (principal)
CPT/HCPCS: 71046; 99282

== ENCOUNTER → 2024-10-28 | Outpatient (CLI) | payer OTHER, SELFPAY ==
[2024-10-28 16:33] LABS: AST(SGOT) 23 U/L (<=37); Alanine Aminotransfer ALT/SGPT 21 U/L (<=46); Albumin, Serum 4.6 g/dL (3.5-5.0); Alkaline Phosphatase 124 U/L (40-129); Bilirubin, Direct 0.18 mg/dL (0.00-0.30); Globulin 2.7 g/dL (2.2-4.2); Hepatitis B Surface Antigen Nonreactive (Nonreactive)
[2024-10-30 23:07] LABS: QNTFERON TB Mitogen Value > 10.00 IU/mL (.); QNTFERON TB Nil Value 0.22 IU/mL (.); QNTFERON TB1+ Ag Value 0.14 IU/mL (.); QNTFERON TB2+ Ag Value 0.09 IU/mL (.); QNTIFERON TB Positive Criteria Negative (Negative)
[2024-10-31 08:09] LABS: Calprotectin, Stool 42 ug/g (0-120)
== END | disposition home or self-care (01) ==
PROVIDERS: PCP Family Medicine; Referring Provider Internal Medicine Gastroenterology; Visit Provider Internal Medicine Gastroenterology
DX: K51.90 Ulcerative colitis, unspecified, without complications (principal)
CPT/HCPCS: 36415; 80076; 83993; 86480; 87340

== ENCOUNTER → 2025-02-24 | Outpatient (CLI) | payer OTHER, SELFPAY ==
--- OUTSIDE RECORDS SUMMARY | 2025-02-24 07:48 | XMS RPT_ITS | CCD ---
Author Organization [facility] Care Team Providers Care Senior Quality Control Technician Name Role Phone Joaquina Rudolph Unavailable Unavailable PROVIDER, MARK Unavailable Unavailable SATNAM CHOE Unavailable Unavailable SATNAM CHOE Unavailable Unavailable NO REFERRING Unavailable Unavailable SATNAM CHOE Unavailable Unavailable SATNAM CHOE Unavailable Unavailable JOAQUINA RUDOLPH SCOTT ANTHONY Unavailable Unavailchrista austin Pending Provider Unavailable Unavailable Unavailable Unavailable Unavailable Primary Care Provider UnavailSoumya Joel Primary Care Provider SAVAGE, SUREKHA Guerin Attending Unavailable SOUMYA AGUILAR Primary Care Unavailable JOAQUINA RUDOLPH Referring Unavailable Dr. Soumya Aguilar DO Primary Care Provider Dr. Joaquina Rudolph MD Attending Provider [phone] Dr. Joaquina Rudolph MD Referring Provider Joaquina Rudolph Attending Unavailable Joaquina Rudolph Referring Unavailable Soumya Aguilar Primary Care Unavailable Rajinder Fitzgerald Attending Unavailable Soumya Aguilar Primary Care Unavailable Medications Current Medications Medication Drug Class(es) Dates Sig (Normalized) Sig (Original) azithromycin 250 mg oral tablet (1 source) Macrolide Antimicrobial Start: 02-09-2024 take 2 tablets by mouth once daily Azithromycin (Zithromax Z-Vadim) 250 mg tablet Active 250 mg PO DAILY 4 4 0 February 09, 2024 12:00am start on day 2 of therapy colestipol hydrochloride 1000 mg oral tablet (1 source) Bile Acid Sequestrant Start: 06-20-2023 take 1 tablet by mouth twice daily colestipol (Colestid) 1 g tablet Take 1 g by mouth 2 times daily. 0 06/20/2023 Active vedolizumab 300 mg injection (5 sources) Integrin Receptor Antagonist vedolizumab (Entyvio) 300 MG injection Infuse 1 mg into a venous catheter Daily with lunch. 0 Active Completed/Discontinued Medications Medication Drug Class(es) Dates Sig (Normalized) Sig (Original) acetaminophen 325 mg / HYDROcodone bitartrate 5 mg oral tablet (14 sources) Opioid Agonist Start: 08-17-2015 End: 03-31-2017 Hydrocodone-Acetami nophen 1 TABLET tablet Discontinued 1 - 2 {tbl} PO EVERY 6 HOURS NEEDED as needed for Pain August 17, 2015 9:05pm March 31, 2017 6:00pm causes drowsiness Start: 08-17-2015 End: 03-31-2017 take 1 tablet by mouth every six hours as needed Hydrocodone-Acetaminophen Discontinued 1 - 2 TABLET PO EVERY 6 HOURS NEEDED August 17, 2015 9:05pm March 31, 2017 6:00pm causes drowsiness acetaminophen 325 mg / oxyCODONE hydrochloride 5 mg oral tablet (11 sources) Opioid Agonist Start: 07-19-2022 End: 02-09-2024 Oxycodone-Acetaminophen (Percocet) 5-325 mg tablet Discontinued 1 {tbl} PO Q8H as needed for pain 12 4 0 July 19, 2022 February 09, 2024 2:53am Calculus of ureter Calculus of ureter amLODIPine 2.5 mg oral tablet (14 sources) Dihydropyridine Calcium Channel Lew Start: 03-31-2017 End: 02-09-2024 take 1 tablet by mouth once daily Amlodipine 2.5 mg tablet Discontinued 2.5 mg PO DAILY March 31, 2017 1:00am February 09, 2024 2:53am azaTHIOprine 50 mg oral tablet (14 sources) Purine Antimetabolite Start: 05-12-2015 End: 05-17-2015 take 1 tablet by mouth once daily Azathioprine 50 MG tablet Discontinued 150 mg PO DAILY May 12, 2015 1:00am May 17, 2015 3:45pm Start: 05-12-2015 End: 05-17-2015 take 150 mg by mouth once daily Azathioprine Discontinued 150 MG PO DAILY May 12, 2015 1:00am May 17, 2015 3:45pm balsalazide disodium 750 mg oral capsule (14 sources) Aminosalicylate Start: 08-17-2015 End: 03-31-2017 take 1 capsule by mouth three times daily Balsalazide 750 MG capsule Discontinued 2250 mg PO THREE TIMES A DAY August 17, 2015 12:00am March 31, 2017 6:01pm Start: 08-17-2015 End: 03-31-2017 take 2250 mg by mouth three times daily Balsalazide Discontinued 2250 MG PO THREE TIMES A DAY August 17, 2015 12:00am March 31, 2017 6:01pm ketorolac tromethamine 10 mg oral tablet (11 sources) Nonsteroidal Anti-inflammatory Drug, Cyclooxygenase Inhibitor Start: 07-19-2022 End: 02-09-2024 take 1 tablet by mouth every eight hours as needed for pain Ketorolac 10 mg tablet Discontinued 10 mg PO Q8H as needed for pain July 19, 2022 12:00am February 09, 2024 2:53am loperamide hydrochloride 2 mg oral capsule (4 sources) Opioid Agonist Start: 11-30-2021 Loperamide HCl - 2 MG Oral Capsule take 1 - 2 capsules up to 4 times a day as needed. Max per day is 8 Quantity: 240 Refills: 6 Ordered: 30-Nov-2021 Colin Choi MD Start : 30-Nov-2021 Active ondansetron 4 mg disintegrating oral tablet (20 sources) Serotonin-3 Receptor Antagonist Start: 07-19-2022 End: 02-09-2024 take 1 tablet by mouth every eight hours as needed for nausea Ondansetron 4 mg tablet,disintegra ting Discontinued 4 mg PO EVERY 8 HOURS NEEDED as needed for Nausea July 19, 2022 12:00am February 09, 2024 2:53am Start: 08-17-2015 End: 03-31-2017 take 1 tablet by mouth every eight hours as needed for nausea Ondansetron 4 MG tablet Discontinued 4 mg PO EVERY 8 HOURS NEEDED as needed for Nausea August 17, 2015 12:00am March 31, 2017 6:01pm tamsulosin hydrochloride 0.4 mg oral capsule (11 sources) alpha-Adrenergic Lew Start: 07-19-2022 End: 02-09-2024 take 1 capsule by mouth once daily Tamsulosin (Flomax) 0.4 mg capsule Discontinued 0.4 mg PO DAILY July 19, 2022 12:00am February 09, 2024 2:53am tofacitinib 10 mg oral tablet (4 sources) take 1 tablet by mouth twice daily Xeljanz 10 MG Oral Tablet Take 1 tablet twice daily Quantity: 0 Refills: 0 Ordered: 30-Nov-2021 DO Active Problems Active Problems Problem Classification Problem Date Documented Da te Episodic/Chronic Abdominal pain (20 sources) Unspecified abdominal pain; Translations: [Lower abdominal pain] Onset: 6 05-13-2015 Episodic Calculus of urinary tract (11 sources) Ureteric stone; Translations: [Calculus of ureter] 07-19-2022 Episodic Diseases of white blood cells (14 sources) 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; 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 Fever of unknown origin (14 sources) Pyrexia of unknown origin; Translations: [Fever, unspecified] 05-14-2015 Episodic Influenza (20 sources) Influenza; Translations: [Influenza due to unidentified influenza virus with other respiratory manifestations] 03-31-2017 Episodic Mycoses (5 sources) Histoplasmosis; Translations: [Histoplasmosis, unspecified] Onset: 4 Resolved: 4 07-05-2023 Episodic Other aftercare (2 sources) Immunosuppression; Translations: [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)] Onset: 4 07-05-2023 Episodic Other aftercare (2 sources) Other terminal gauger (current) drug therapy; Translations: [Other terminal gauger (current) drug therapy] Onset: 4 Episodic Other gastrointestinal disorders (2 sources) Diarrhea; Translations: [Diarrhea] Episodic Other gastrointestinal disorders (1 source) History of Crohns disease; Translations: [Personal history of other diseases of the digestive system] 02-17-2024 Episodic Pneumonia (except that caused by tuberculosis or sexually transmitted disease) (1 source) Pneumonia; Translations: [Pneumonia, unspecified organism] 02-17-2024 Episodic Regional enteritis and ulcerative colitis (20 sources) Crohn's disease of small intestine without complications; Translations: [Crohn's disease] Onset: 6 05-14-2015 Chronic Unclassified (1 source) Immunodeficiency due to drugs (HCC); Translations: [Immunodeficiency due to drugs (HCC)] Onset: 4 Unclassified (1 source) Acute cough; Translations: [Acute cough] Onset: 4 Past or Other Problems Problem Classification Problem Date Documented Date Episodic/Chronic Unclassified (1 source) Immunodeficiency due to drugs (HCC); Translations: [Immunodeficiency due to drugs (HCC)] Onset: 07-05-2023 Results Test Name Value Interpretation Reference Range Yoselin Fish [address] 42 ug/g Normal 0-120 [facility] Comment on above: Result Comment: Conc entration Interpretation Follow-Up < 5 - 50 ug/g Normal None >50 -120 ug/g Borderline Re-evaluate in 4-6 weeks >120 ug/g Abnormal Repeat as clinically indicated Performed at: - [address] [id number] Development Spec: Viridiana Schroeder MD, Phone: [phone] Performed By: #### L 500.3400, L3890.6102, L3400.8000, L7000.0700 #### [facility] [address] [place], [address] Quantiferon TB-Gold+on 10-30 QFT MITOGEN JT > 10.00 Normal . [facility] Comment on above: Performed By: #### L 500.3400, L3890.6102, L3400.8000, L7000.0700 #### [facility] [address] [place], [address] QFT NIL VALUE 0.22 IU/mL Normal . [facility] Comment on above: Performed By: #### L 500.3400, L3890.6102, L3400.8000, L7000.0700 #### [facility] [address] [place], [address] QFT TB GOLD+ Comment Normal . [facility] Comment on above: Result Comment: John Paul tiFERON-TB Gold Plus is a qualitative indirect test for M tuberculosis infection (including disease) and is intended for use in conjunction with risk assessment, radiography, and other medical and diagnostic evaluations. The QuantiFERON-TB Gold Plus result is determined by subtracting the Nil value from either TB antigen (Ag) value. The Mitogen tube serves as a control for the test. Performed By: #### L 500.3400, L3890.6102, L3400.8000, L7000.0700 #### [facility] [address] [place], [address] QFT TB POS CRIT Negative Normal Negative [facility] Comment on above: Result Comment: No r esponse to M tuberculosis antigens detected. Infection with M tuberculosis is unlikely, but high risk individuals should be considered for additional testing (ATS/IDSA/CDC Clinical Practice Guidelines, 2017). The reference range is an Antigen minus Nil result of <0.35 IU/mL. The specimen received for QuantiFERON testing was incubated by the ordering institution. Specific procedures outlined in our Directory of Services and in the package insert for the QuantiFERON Gold (In Tube) test must be followed to enable for proper stimulation of cells for the production of interferon gamma. Chemiluminescence immunoassay methodology Performed at: [employer] [id number] Development Spec: Gabino Randall PhD, Phone: [phone] Performed By: #### L 500.3400, L3890.6102, L3400.8000, L7000.0700 #### [facility] [address] [place], [address] QFT TB1+ AG JT 0.14 IU/mL Normal . [facility] Comment on above: Performed By: #### L 500.3400, L3890.6102, L3400.8000, L7000.0700 #### [facility] [address] [place], [address] QFT TB2+ AG JT 0.09 IU/mL Normal . [facility] Comment on above: Performed By: #### L 500.3400, L3890.6102, L3400.8000, L7000.0700 #### [facility] [address] [place], [address] Bilirubin directOrdered By: Joaquina Rudolph on 10-28-2024 Bilirubin.direct [Mass/Vol] 0.18 mg/dL 0.00-0.30 [facility] Bilirubin, totalOrdered By: Joaquina Rudolph on 10-28-2024 Bilirubin [Mass/Vol] 0.57 mg/dL 0.00-1.[address] [facility] Calprotectin stoolOrdered By : Joaquina Rudolph on 10-28-2024 Calprotectin stool 42 ug/g 0-120 [facility] Comment on above: Concentration Interp retation Follow-Up< 5 - 50 ug/g Normal None>50 -120 ug/g Borderline Re-evaluate in 4-6 weeks >120 ug/g Abnormal Repeat as clinically indicatedPerformed at: [facility] [address] [id number] Director: Viridiana Schroeder MD, Phone: [phone] [email or web address] 10-28-2024 HEP B Surf Ag Non-Reactive Normal Nonreactive [facility] Comment on above: Result Comment: Reac tive: Presumptive evidence of HBV. Repeatedly reactive samples must be confirmed using a neutralization test ([employer] HBsAg Confirmatory Test) Non-Reactive: HBsAg not detected; does not exclude the possibility of exposure to HBV Performed By: #### L 500.3400, L3890.6102, L3400.8000, L7000.0700 #### [facility] [address] [place], [place], [id number] Laboratory - Chemistry and C hemistry - challengeOrdered By: Joaquina Rudolph on 10-28-2024 AST [Catalytic activity/Vol] 23 U/L <38 [facility] - Microbiology an d Antimicrobial susceptibilityOrdered By: Joaquina Rudolph on 10-28-2024 HBV surface Ag Ql (S) Non-Reactive Nonreactive [facility] Comment on above: Reactive: Presumptiv e evidence of HBV. Repeatedly reactive samples must be confirmed using a neutralization test ([employer]ys HBsAg Confirmatory Test)Non-Reactive: HBsAg not detected; does not exclude the possibility of exposure to HBV Liver Profileon 10-28-2024 Albumin [Mass/Vol] 4.6 g/dL Normal 3.5-5.0 [facility] Comment on above: Order Comment: CBCD Performed By: #### L 500.3400, L3890.6102, L3400.8000, L7000.0700 #### [facility] [address] [place], [address] ALK PHOS 124 U/L Normal 40-129 [facility] Comment on above: Order Comment: CBCD Performed By: #### L 500.3400, L3890.6102, L3400.8000, L7000.0700 #### [facility] [address] [place], [address] ALT [Catalytic activity/Vol] 21 U/L Normal <=46 [facility] Comment on above: Order Comment: CBCD Performed By: #### L 500.3400, L3890.6102, L3400.8000, L7000.0700 #### [facility] [address] [place], [address] AST [Catalytic activity/Vol] 23 U/L Normal <=37 [facility] Comment on above: Order Comment: CBCD Performed By: #### L 500.3400, L3890.6102, L3400.8000, L7000.0700 #### [facility] [address] [place], [address] Bilirubin [Mass/Vol] 0.57 mg/dL Normal 0.00-1.[address] [facility] Comment on above: Order Comment: CBCD Performed By: #### L 500.3400, L3890.6102, L3400.8000, L7000.0700 #### [facility] [address] [place], [address] Bilirubin.direct [Mass/Vol] 0.18 mg/dL Normal 0.00-0.30 [facility] Comment on above: Order Comment: CBCD Performed By: #### L 500.3400, L3890.6102, L3400.8000, L7000.0700 #### [facility] [address] [place], [address] Globulin (S) [Mass/Vol] 2.7 g/dL Normal 2.2-4.2 [facility] Comment on above: Order Comment: CBCD Performed By: #### L 500.3400, L3890.6102, L3400.8000, L7000.0700 #### [facility] [address] [place], [address] T PROT 7.3 g/dL Normal 5.9-8.4 [facility] Comment on above: Order Comment: CBCD Performed By: #### L 500.3400, L3890.6102, L3400.8000, L7000.0700 #### [facility] [address] [place], [address] Qualitative QuantiFERON-TB g old in tube testOrdered By: Joaquina Rudolph on 10-28-2024 M. tuberculosis tuberculin stim IFN-g Ql (Bld) 0.14 IU/mL . [facility] Serum globulin measurementOr dered By: Joaquina Rudolph on 10-28-2024 Globulin (S) [Mass/Vol] 2.7 g/dL 2.2-4.2 [facility] Serum or plasma alanine smith otransferase (ALT) measurementOrdered By: Joaquina Rudolph on 10-28-2024 ALT [Catalytic activity/Vol] 21 U/L <47 [facility] Serum or plasma albumin es urement (mass/volume)Ordered By: Joaquina Rudolph on 10-28-2024 Albumin [Mass/Vol] 4.6 g/dL 3.5-5.0 [facility] Serum or plasma alkaline brionna sphatase measurementOrdered By: Joaquina Rudolph on 10-28-2024 ALP [Catalytic activity/Vol] 124 U/L 40-129 [facility] Total proteinOrdered By: Andry Rudolph on 10-28-2024 Protein [Mass/Vol] 7.3 g/dL 5.9-8.4 [facility] Chest PA and Lateralon 02-08 Chest PA and Lateral [facility] Imaging Services [address] [facility] [place] [address] Chest PA and Lateral MR#: [id number] Acct: [id number] Name: NIKOLE VASQUEZ II Rep #: [id number] : 1980 M 43 From: Han Sharma PCP: Dr. Soumya Aguilar DO Status: DEP ER Study: Chest PA and Lateral Date of Exam: 02/09/24 Exam# [id number] Ordering Dr: Rajinder Fitzgerald MD [id number] EXAM: XR CHEST, 2 VIEWS CLINICAL INDICATION: cough TECHNIQUE: Frontal and lateral views of the chest. COMPARISON: 06/03/2023. FINDINGS: LUNGS AND PLEURAL SPACES: Mild patchy opacity in the left mid to lower lung may be due to pneumonia. No pneumothorax. No effusion. HEART: Unremarkable. Cardiac silhouette not enlarged. MEDIASTINUM: Central airways and mediastinal contour are unremarkable. BONES/JOINTS: Unremarkable. No acute fracture. SOFT TISSUES: Unremarkable. RAD/Chest PA and Lateral IMPRESSION: Mild patchy opacity in the left mid to lower lung may be due to pneumonia. Electronically Signed: Han Timmons MD at 4:18 EDT , CC: Dr. Rajinder Fitzgerald MD; Dr. Soumya Aguilar DO Employment Agency Manager: Signed Normal [facility] Emergency Department Summary on 02-09-2024 Emergency Department Summary [facility] Medical Records Department [address] [place] [address] Emergency Department Summary 02/09/24 MR#: [id number] Acct: [id number] Name: NIKOLE VASQUEZ II Rep #: [id number] : 1980 43 From: Rajinder Fitzgerald MD PCP: Dr. Soumya Aguilar DO Status:DEP ER Location: ED HPI HPI - URI History of Present Illness Chief Complaint: Cough Informant: patient Onset/Context/Timing Onset: Days Context: Gradual Onset Timing: Continuous Current Severity: Mild Maximum Severity: Mild Associated Symptoms Associated Symptoms: Positive for Nasal Congestion, Nausea, Diarrhea and Productive Cough (Yellow sputum. No blood.); Negative for Vomiting Narrative Narrative: 43-year-old male past medical history of ulcerative colitis and Crohn's. On activity a. States since Monday evening he has had a cough fever as high as 101.2 muscle aches with nausea but no vomiting. Watery diarrhea. Productive cough of yellow phlegm. No hemoptysis. Prior similar symptoms: Yes Recent Illness/Hospitalization: No ROS ROS ED ROS Narrative Cough. Yellow sputum. Nausea. No vomiting. Diarrhea. Constitutional Constitutional ED: Denies chills ENT ENT ED: Denies ear pain Cardiovascular Cardiovascular: Denies chest pain Respiratory/Chest Respiratory/Chest: Reports cough and sputum Gastrointestinal Gastrointestinal: Reports diarrhea and nausea; Denies abdominal pain, constipation, melena or vomiting Genitourinary Genitourinary ED: Denies dysuria or hematuria Musculoskeletal Musculoskeletal: Denies arthralgias Integumentary Denies abscess Neurologic Neurologic: Denies headache(s) Psychiatric Psychiatric: Denies anxiety Endocrine Endocrinology: Denies cold intolerance Hematologic/Lymphatic Hematologic/Lymphatic: Denies easy bleeding Allergic/Immunologic Allergic/Immunologic ED: Denies mouth swelling PFSH PFSH Medical History HTN (hypertension) Ulcerative colitis Home Medications ???Medication ???Instructions ???Recorded ???Last Taken ???Type azithromycin 250 mg tablet 250 mg PO DAILY 4 days #4 tabs 02/09/24 Unknown Rx (Zithromax Z-Vadim) Allergy/AdvReac Type Severity Reaction Status Date / Time No Known Allergies Allergy Verified 06/03/23 19:39 Family History Mother Colon cancer Other Hypertension Surgical History History of intestine removal Social History Smoking Status: Never smoker alcohol intake: never EXAM Physical Exam Narrative Exam Narrative: 43-year-old male no acute distress. Vital signs stable afebrile. Pulse ox 98% on room air no hypoxia. He does not look septic or toxic. Does not look dehydrated. He does have a dry cough. H EENT exam posterior pharynx is unremarkable. Moist mucous membranes. No erythema or exudate. No trouble swallowing or breathing. Neck nontender. No JVD. No lymphadenopathy. No meningismus. Lungs dry cough. No rales, rhonchi or wheezing. Equal symmetrical. No distress. Heart regular rhythm rate about 80 no murmur. Chest wall ribs nontender. Abdomen soft nontender. No peritoneal signs. Back nontender. Moving all 4 extremities. Normal motor strength. No edema. No deformity. He is awake and alert. Answering questions following commands. Const Vital Signs: 02/09/24 02:54 02/09/24 02:54 Temperature 99 F Temperature Source Oral Pulse Rate 81 Respiratory Rate 16 Respiratory Effort Normal Non-Labored Respiratory Depth Normal Respiratory Pattern Normal Blood Pressure 147/89 H Blood Pressure Mean 108 Pulse Ox 98 Oxygen Delivery Method Room Air Room Air Positive well nourished and well developed; Negative for cachectic or contractures General Appearance ED: well developed and NAD; Negative for cachectic, contractures, cyanotic, diaphoretic or pallor Nutritional Appearance: Negative for cachectic HEENT Reports moist mucous membranes normocephalic and atraumatic Face and Sinus: Negative for sinus tenderness Throat: posterior oropharynx normal Eyes PERRL and EOMs intact bilaterally Neck no lymphadenopathy, supple, no meningeal signs and no JVD Resp normal respiratory effort and clear to auscultation bilaterally Resp Narrative: Dry cough. Auscultation: Negative for rales, rhonchi, wheezes or diminished lung sounds Cardio S1 normal heart sound, S2 normal heart sound and no murmurs Rate: regular rate Rhythm: regular rhythm GI non-tender, non-distended and no masses Auscultation: normoactive bowel sounds Palpation: soft; Negative for tender Back/Spine no CVA tenderness and normal ROM General Back: Negative for CVA tend (more content not included)... Normal [facility] C-REACTIVE PROTEINon 024 CRP [Mass/Vol] 6.0 mg/L Normal <10.0 [facility] Comment on above: Performed By: #### L [id number] #### Rn Anesthesiology: JACLYN MEHTA ([id number]) [facility] ([facility]) [address] [place] [address] C-reactive proteinon 024 CRP [Mass/Vol] 6.0 mg/L [facility] - 10.0 mg/L [facility] CRP [Mass/Vol]on 07-05-2023 Interpretation and review of laboratory results Normal [facility] ESR (Bld) [Velocity]Ordered By: Nigel Hough on 07-05-2023 Interpretation and review of laboratory results Abnormal [facility] FUNGAL AB PANEL (ID)on 07-04 ASPERGILLUS FLAVUS AB Negative Normal Negative [facility] Comment on above: Performed By: #### L [id number] #### [facility] ([facility]) [id number] [place], [place] [facility] ASPERGILLUS FUMIGATUS AB Negative Normal Negative [facility] Comment on above: Result Comment: Interpretive Criteria: Negative: Antibody not detected Positive: Antibody detected A positive result is represented by 1 or more precipitin bands, and may indicate fungus ball, allergic bronchopulmonary aspergillosis (RANDALL) or invasive aspergillosis. Generally, the appearance of 3-4 bands indicates either fungus ball or RANDALL. Performed By: #### L [id number] #### [facility] ([facility]) [id number] [place], [place] [facility] ASPERGILLUS NIGER AB Negative Normal Negative [facility] Comment on above: Performed By: #### L [id number] #### [facility] ([facility]) [id number] [place], [facility] BLASTOMYCES AB Negative Normal Negative [facility] Comment on above: Result Comment: Interpretive Criteria: Negative: Antibody not detected Positive: Antibody detected A positive result is diagnostic of active or recent blastomycosis and is found in approximately 80% of proven cases of blastomycosis. Performed By: #### L [id number] #### [facility] ([facility]) [id number] [place], [facility] MARGOT AB Negative Normal Negative [facility] Comment on above: Result Comment: Interpretive Criteria: Negative: Antibody Not Detected Positive: Antibody Detected Detection of antibody recognizing Margot is 70-80% specific for systemic candidiasis, and sensitivity is related to the immunocompetence of the patient. The immunocompromised patient with overwhelming candidiasis may not exhibit detectable Margot antibody. Performed By: #### L [id number] #### [facility] ([employer]) [id number] [place], [facility] COCCIDIODES AB Negative Normal Negative [facility] [facility] Comment on above: Result Comment: Interpretive Criteria: Negative: Antibody Not Detected Positive: Antibody Detected The immunodiffusion (ID) procedure correlates both in sensitivity and clinical utility with the CF test. The ID test, which detects IgG directed to the F antigen, becomes positive within 4 weeks after infection and remains positive throughout clinically active disease. It is most useful in confirming the specificity of low CF titers, where lines of identity are formed with reference antisera. Positive ID reactions are diagnostic for coccidioidomycosis and usually indicate active or recent disease and remain detectable for up to 1 year thereafter. Performed By: #### L [id number] #### [facility] ([employer]) [id number] [place], [place] [facility] H BAND Negative Normal Negative [facility] Comment on above: Result Comment: This immunodiffusion assay is highly specific for Histoplasmosis infection but may have low sensitivity in early infection. Two different immunoprecipitin bands may be detected. The M band develops with acute infection, is often present in chronic infection, and may persist for months to years. The M band may be detected in persons with recent histoplasmin skin testing. The H band, which is usually present with the M band, generally suggests a chronic or severe acute infection. The presence of both the H and M bands is considered conclusive for the diagnosis of histoplasmosis. Test Performed by [facility], [address] [place] [address] Flakito Mackenzie M.D., Ph.D., Director of Laboratories , [place] [id number] Performed By: #### L [id number] #### [facility] ([employer]) [id number] [place], [place] [facility] M BAND Positive Abnormal Negative [facility] Comment on above: Performed By: #### L [id number] #### [facility] ([employer]) [id number] [place], [place] [facility] HISTOPLASMA ANTIGEN, URINEon 07-05-2023 HISTOPLASMA AG,URINE Not detected Normal [facility] Comment on above: Performed By: #### L [id number] #### [facility] ([facility]) [address] [place] [address] INTERPRETATION Not detected Normal Not Detected [facility] Comment on above: Result Comment: INTE RPRETIVE DATA: Histoplasma Galactomannan Antigen Quantitative by EIA, Urine Less than 0.4 ng/ml = Not Detected 0.4-0.7 ng/mL = Detected (below the limit of quantification) 0.8-24.0 ng/mL = Detected Greater than 24.0 ng/mL = Detected (above the limit of quantification) The quantitative range of this assay is 0.8-24.0 ng/mL. Antigen concentrations between 0.4-.07 or >24.0 ng/mL fall outside the linear range of the assay and cannot be accurately quantified. This EIA test should be used in conjunction with other diagnostic procedures, including microbiological culture, histological examination of biopsy samples, and/or radiographic evidence, to aid in the diagnosis of histoplasmosis. This test was developed and its performance characteristics determined by [employer]. It has not been cleared or approved by the U.S. Food and Drug Administration. This test was performed in a CLIA-certified laboratory and is intended for clinical purposes. Performed By: [facility] [address] [place] [address] Brineyard Supervisor: Aneesh Landers MD, PhD CLIA Number: [id number] Performed By: #### L [id number] #### [facility] ([facility]) [address] [place] [address] Office Visiton 07-05-2023 Follow-up visit [id number] Graham II 1980 M Date Provider Department Center 07/05/2023 56-SIGNS, SUREKHA J [facility] ID None Family History Problem Relation Age of Onset Colon cancer Mother Miscarriages / Stillbirths Sister Family Status - Relation Status Age at Mother Sister Level of Service:42763 UT OFFICE/OUTPATIENT NEW HIGH MDM 60 MINUTES Reason for Visit and Comments: Histoplasmosis [Other] Normal [facility] PATINSon 07-05-2023 PATINS Please notify me if persistent fevers, night sweats, poor appetite/energy that are unexplained Normal [facility] Progress Noteon 07-05-2023 Progress Note [facility] Infectious Diseases Attending Outpatient Consult Note Reason for Consult: Histoplasmosis Requesting Physician: Dr Rudolph No chief complaint on file. HISTORY OF PRESENT ILLNESS The patient is a 43 y.o. male with presenting on chronic immunosuppressive therapy with Vedolizumab for chronic inflammatory bowel disease (unclear if Chron's or Ulcerative colitis). Was diagnosed at age 18 (1998).,GI care was under Dr Amadeo Birmingham at [facility] until he retired, then transferred his care to [facility], Dr Joaquina Rudolph. 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 He was treated with bowel resection of 6 inches of ileum in (03/2016). Itraconazole was at higher dose for unspecified time and then used for chronic suppression 200 mg bid He had been seeing Dr Pete Up at [facility] for the chronic Histoplasmosis suppressive therapy with Itraconazole for 4 yrs until 03/2020, after which he self stopped the Itraconazole since his insurance at that time did not cover it. He has not been followed by ID since, but Dr Rudolph recommended that he get re-established with ID Due to insurance coverage changes, he was referred here. Denies any severe infections. Weight is stable, having about 5-7 bowel movements per day. Past Medical History: Diagnosis Date Crohn's disease of both small and large intestine with other complication ([facility]) 07/05/2023 History reviewed. No pertinent surgical history. Current Outpatient Medications Medication Sig Dispense Refill colestipol (Colestid) 1 g tablet Take 1 g by mouth 2 times daily. vedolizumab (Entyvio) 300 MG injection Infuse 1 mg into a venous catheter Daily with lunch. No current facility-administered medications for this visit. No Known Allergies Social History Socioeconomic History Marital status: Single Spouse name: Not on file Number of children: Not on file Years of education: Not on file Highest education level: Not on file Occupational History Not on file Tobacco Use Smoking status: Never Smokeless tobacco: Never Substance and Sexual Activity Alcohol use: Not Currently Comment: Dont drink often Drug use: Never Sexual activity: Not Currently Partners: Male control/protection: Condom Male Other Topics Concern Not on file Social History Narrative Not on file Social Determinants of Health Financial Resource Strain: Not on file Food Insecurity: Not on file Transportation Needs: Not on file Physical Activity: Not on file Stress: Not on file Social Connections: Not on file Intimate Partner Violence: Not on file Housing Stability: Not on file Family History Problem Relation Name Age of Onset Colon cancer Mother Cristel Vasquez Miscarriages / Stillbirths Sister Sue murphy Review of Systems Constitutional: Negative for activity change, appetite change, chills, diaphoresis, fatigue, fever and unexpected weight change. HENT: Negative for ear pain, hearing loss, sinus pressure and sinus pain. Eyes: Negative. Wears contacts Respiratory: Negative. Cardiovascular: Negative. Gastrointestinal: Positive for diarrhea. Negative for abdominal distention, abdominal pain, blood in stool, constipation, nausea and vomiting. Semi formed to watery stools Endocrine: Negative. Genitourinary: Negative for dysuria, frequency and urgency. Musculoskeletal: Negative. Skin: Negative. Neurological: Negative for tremors, speech difficulty, weakness and headaches. Hematological: Negative. Psychiatric/Behavioral: Negative for confusion and sleep disturbance. The patient is not nervous/anxious and is not hyperactive. Vitals: 07/05/23 0802 BP: 128/78 BP Location: Left arm Patient Position: Sitting BP Cuff Size: Adult Pulse: 87 Temp: 36.1 ?C (97 ?F) SpO2: 97% Weight: 102 kg (224 lb) Height: 1.778 m (5' 10) Physical Exam Vitals and nursing note reviewed. Constitutional: General: He is not in acute distress. Appearance: Normal appearance. He is not ill-appearing, toxic-appearing or diaphoretic. HENT: Head: Normocephalic and atraumatic. Nose: Nose normal. No congestion or rhinorrhea. Mouth/Throat: Mouth: Mucous membranes are moist. Pharynx: No oropharyngeal exudate or posterior oropharyngeal erythema. Eyes: General: No scleral icterus. Extraocular Movements: Extraocular movements intact. Pupils: Pupils are equal, round, and reactive to light. Cardiovascular: Rate and Rhythm: Normal rate and regular rhythm. Heart sounds: Normal heart sounds. No murmur heard. No gallop. Pulmonary: Effort: Pulmonary effort is normal. No respiratory distress. Breath sounds: Normal breath sounds. No wheezing or rhonchi. Chest: Chest wall: No tenderness. Abdominal: General: Abdomen is flat. Bowel sounds are (more content not included)... Normal [facility] SEDIMENTATION RATE, AUTOMATE Don 07-05-2023 SEDIMENTATION RATE, ERYTHROCYTE 12 mm/hr High 0-10 [facility] Comment on above: Performed By: #### L [id number] #### Rn Anesthesiology: JACLYN MEHTA ([id number]) [facility] ([facility]) [address] [place] [address] Sedimentation rate, automate dOrdered By: Nigel Hough on 07-05-2023 ESR (Bld) [Velocity] 12 mm/h High [facility] 36on 06-23-2023 36 Name of Caller: Berhane sanchez Contact Reason for Appointment: New Patient appointment. Patient has a referral with diagnosis of Histoplasmosis - suppressive rx. off rx >1 yr . Please contact to schedule. Office Name: Infectious Disease Normal [facility] No Panel Informationon 06-22 Stool Calprotectin 263 ug/g 0-120 [facility] Comment on above: Concentration Interp retation Follow-Up< 5 - 50 ug/g Normal None>50 -120 ug/g Borderline Re-evaluate in 4-6 weeks >120 ug/g Abnormal Repeat as clinically indicatedPerformed at: - [facility] [address] [id number] Director: Viridiana Schroeder MD, Phone: [phone] Basophil percentageon 2023 Bilirubin [Mass/Vol] 0.60 mg/dL 0.20-1.[address] [facility] Comment on above: For patients on eltr ombopag therapy, use of Dimension [place] TBIL is not recommended. Chloride [Moles/Vol] 108 mmol/L 98-[address] [facility] Glucose [Mass/Vol] 120 mg/dL 74-106 [facility] Comment on above: Fasting Glucose resu lt from 100 to 125 mg/dL suggests IMPAIRED HOMEOSTASIS per A.D.A. criteria. Potassium [Moles/Vol] 3.7 mmol/L 3.5-5.1 [facility] Protein [Mass/Vol] 7.4 g/dL 6.4-8.2 [facility] Sodium [Moles/Vol] 141 mmol/L 136-145 [facility] Laboratory - Chemistry and C hemistry - challengeon 06-22-2023 Albumin/Globulin [Mass ratio] 1.1 {ratio} 0.9-2.4 [facility] ALP [Catalytic activity/Vol] 104 U/L 45-117 [facility] ALT [Catalytic activity/Vol] 32 U/L 16-61 [facility] CO2 [Moles/Vol] 26.0 mmol/L 21.0-32.0 [facility] Globulin (S) [Mass/Vol] 3.5 g/dL 2.2-4.2 [facility] Urea nitrogen/Creatinine [Mass ratio] 18.7 mg/mg 10-20 [facility] No Panel Informationon 06-21 C-Reactive Protein Extended Range 7.14 mg/L 0.0-3.0 [facility] Comment on above: C-Reactive Protein ( CRP) provides useful information for thediagnosis, therapy and monitoring of inflammatory processesand associated diseases. For the evaluation of Relative Riskfor Cardiovascular Disease, a High Sensitivity CRP (HSCRP)should be ordered. Estimated GFR (MDRD) Amer 110 mL/min >60 [facility] Comment on above: GFR Calc Estimated GFR (MDRD) Non-Af Amer 91 mL/min >60 [facility] Comment on above: Non- GFR Calc Serum or plasma calcium es urement (mass/volume)on 06-22-2023 Calcium [Mass/Vol] 9.1 mg/dL 8.5-10.1 [facility] Serum or plasma creatinine m easurement (mass/volume)on 06-22-2023 Creatinine [Mass/Vol] 0.96 mg/dL 0.70-1.30 [facility] Comment on above: The validity of the calculated GFR & GFRAA in patients over 70 years has not been determined. Clinical correlation is essential. Serum or plasma urea nitroge n measurement (mass/volume)on 06-22-2023 Urea nitrogen [Mass/Vol] 18 mg/dL 7-18 [facility] Thin prep Papanicolaou smear with manual screeningon 06-22-2023 Thin prep Papanicolaou smear with manual screening 3.9 g/dL 3.2-5.0 [facility] Thin prep Papanicolaou smear with manual screening 15 U/L 15-37 [facility] Thin prep Papanicolaou smear with manual screening 7 5-15 [facility] Laboratory - Microbiology an d Antimicrobial susceptibilityOrdered By: Jia Jackson on 06-03-2023 SARS-CoV-2 (COVID-19) RNA TOSHA+probe Ql (Unsp spec) Influenzae A [facility] SARS-CoV-2 (COVID-19) RNA TOSHA+probe Ql (Unsp spec) Influenzae A [facility] Clostridium difficile detect ion by polymerase chain reactionOrdered By: Joaquina Rudolph on 12-05-2022 C. difficile DNA TOSHA+probe Ql (Unsp spec) [facility] No Panel InformationOrdered By: Joaquina Rudolph on 11-03-2022 Stool Calprotectin 327 ug/g 0-120 [facility] Comment on above: Concentration Interp retation Follow-Up< 5 - 50 ug/g Normal None>50 -120 ug/g Borderline Re-evaluate in 4-6 weeks >120 ug/g Abnormal Repeat as clinically indicatedPerformed at: - [facility] [id number] Director: Viridiana Schroeder MD, Phone: [phone] Hepatitis B Surface Antigen Non-Reactive Nonreactive [facility] Qualitative QuantiFERON-TB g old in tube testOrdered By: Joaquina Rudolph on 11-03-2022 M. tuberculosis tuberculin stim IFN-g Ql (Bld) 0.07 IU/mL . [facility] Thin prep Papanicolaou smear with manual screeningOrdered By: Joaquina Rudolph on 11-03-2022 Thin prep Papanicolaou smear with manual screening Comment . [facility] Comment on above: QuantiFERON-TB Gold Plus is a qualitative indirect test forM tuberculosis infection (including disease) and isintended for use in conjunction with risk assessment,radiography, and other medical and diagnostic evaluations.The QuantiFERON-TB Gold Plus result is determined bysubtracting the Nil value from either TB antigen (Ag)value. The Mitogen tube serves as a control for the test. Thin prep Papanicolaou smear with manual screening 0.06 IU/mL . [facility] Thin prep Papanicolaou smear with manual screening 0.04 IU/mL . [facility] Thin prep Papanicolaou smear with manual screening > 10.00 IU/mL . [facility] Thin prep Papanicolaou smear with manual screening Negative Negative [facility] Comment on above: No response to M tub erculosis antigens detected.Infection with M tuberculosis is unlikely, but high riskindividuals should be considered for additional testing(ATS/IDSA/CDC Clinical Practice Guidelines, 2017). Thereference range is an Antigen minus Nil result of <0.35IU/mL.The specimen received for QuantiFERON testing was incubatedby the ordering institution. Specific procedures outlinedin our Directory of Services and in the package insert forthe QuantiFERON Gold (In Tube) test must be followed toenable for proper stimulation of cells for the productionof interferon gamma. Chemiluminescence immunoassaymethodologyPerformed at: [place] [id number] Director: Gabino Randall PhD, Phone: [phone] Serum or plasma C reactive p rotein measurement (mass/volume)Ordered By: Joaquina Rudolph on 10-13-2022 CRP [Mass/Vol] 5.20 mg/L 0.0-3.0 [facility] Comment on above: C-Reactive Protein ( CRP) provides useful information for thediagnosis, therapy and monitoring of inflammatory processesand associated diseases. For the evaluation of Relative Riskfor Cardiovascular Disease, a High Sensitivity CRP (HSCRP)should be ordered. Absolute lymphocyte countOrd ered By: Dr. Mallory on 07-19-2022 Lymphocytes Auto (Unsp spec) [#/Vol] 1.68 10*3/uL 0.83-4.51 [facility] Basophil percentageOrdered B y: Dr. Mallory on 07-19-2022 Basophil percentage 0-5 SEEN /hpf 0-5 [facility] Basophils/100 WBC (Bld) 0.1 % 0-1 [facility] Chloride [Moles/Vol] 109 mmol/L 98-[address] [facility] Eosinophils/100 WBC (Bld) 1.3 % 0-5 [facility] Glucose [Mass/Vol] 143 mg/dL 74-106 [facility] Comment on above: Fasting Glucose resu lt greater than or equal to 126 mg/dL suggests DIABETES MELLITUS per A.D.A. criteria. Neutrophils (Bld) [#/Vol] 6.9 10*3/uL 2.0-7.7 [facility] Neutrophils/100 WBC (Bld) 72.8 % 47-70 [facility] Potassium [Moles/Vol] 3.7 mmol/L 3.5-5.1 [facility] Sodium [Moles/Vol] 138 mmol/L 136-145 [facility] WBC (Bld) [#/Vol] 9.5 10*3/uL 4.4-11.0 [facility] Bilirubin Test strip Ql (U)O rdered By: Dr. Mallory on 07-19-2022 Bilirubin Ql (U) 1 mg/dL Negative [facility] Comment on above: COLOR OF URINE MAY A FFECT DIPSTICK RESULTS. Blood erythrocytes count (nu mber/volume)Ordered By: Dr. Mallory on 07-19-2022 RBC (Bld) [#/Vol] 5.60 10*6/uL 4.6-6.2 [facility] Blood hemoglobin measurement (mass/volume)Ordered By: Dr. Mallory on 07-19-2022 Hemoglobin (Bld) [Mass/Vol] 15.8 g/dL 13.0-16.5 [facility] Blood lymphocytes/100 leukoc ytesOrdered By: Dr. Mallory on 07-19-2022 Lymphocytes/100 WBC (Bld) 17.6 % 19-41 [facility] Blood monocytes/100 leukocyt esOrdered By: Dr. Mallory on 07-19-2022 Monocytes/100 WBC (Bld) 7.9 % 0-10 [facility] Blood platelet mean volumeOr dered By: Dr. Mallory on 07-19-2022 Platelet mean volume (Bld) [Entitic vol] 10.1 fL 6.2-12.0 [facility] Determination of erythrocyte mean corpuscular volume (MCV)Ordered By: Dr. Mallory on 07-19-2022 MCV (RBC) [Entitic vol] 82.7 fL 80-94 [facility] Hematocrit Auto (Bld) [Volum e fraction]Ordered By: Dr. Mallory on 07-19-2022 Hematocrit (Bld) [Volume fraction] 46.3 % 40-54 [facility] Ketones Test strip Ql (U)Ord ered By: Dr. Mallory on 07-19-2022 Ketones Ql (U) 5 mg/dl Negative [facility] Laboratory - Chemistry and C hemistry - challengeOrdered By: Dr. Mallory on 07-19-2022 CO2 [Moles/Vol] 23.0 mmol/L 21.0-32.0 [facility] Urea nitrogen/Creatinine [Mass ratio] 16.5 mg/mg 10-20 [facility] Laboratory - Hematology and Cell countsOrdered By: Dr. Mallory on 07-19-2022 Erythrocyte distribution width (RBC) [Entitic vol] 38.5 fL 35.1-43.9 [facility] Erythrocyte distribution width (RBC) [Ratio] 12.8 % 11.6-14.6 [facility] Immature granulocytes/100 WBC (Bld) 0.300 % 0.0-0.9 [facility] Comment on above: IG% - Immature Granu locytes (promyelocytes, myelocytes and metamyelocytes) > 1% indicates that a LEFT SHIFT is Present. MCH (RBC) [Entitic mass] 28.2 pg 27.0-32.0 [facility] Nucleated RBC/100 WBC (Bld) [Ratio] 0 % 0-5 [facility] MCHC Auto (RBC) [Mass/Vol]Or dered By: Dr. Mallory on 07-19-2022 MCHC (RBC) [Mass/Vol] 34.1 g/dL 32-36 [facility] Mucus LM Ql (Urine sed)Order ed By: Dr. Mallory on 07-19-2022 Mucus Ql (Urine sed) 0 SEEN /hpf [facility] Nitrite Test strip Ql (U)Ord ered By: Dr. Mallory on 07-19-2022 Nitrite Ql (U) Negative Negative [facility] No Panel InformationOrdered By: Dr. Mallory on 07-19-2022 Estimated Creatinine Clearance Calc 88.16 ml/min [facility] Estimated GFR (MDRD) Amer 90 mL/min >60 [facility] Comment on above: GFR Calc Estimated GFR (MDRD) Non-Af Amer 75 mL/min >60 [facility] Comment on above: Non- GFR Calc Platelets bldOrdered By: Dr. Mallory on 07-19-2022 Platelets (Bld) [#/Vol] 251 10*3/uL 150-450 [facility] Protein Test strip Ql (U)Ord ered By: Dr. Mallory on 07-19-2022 Protein Ql (U) 100 mg/dl Negative [facility] Serum or plasma calcium es urement (mass/volume)Ordered By: Dr. Mallory on 07-19-2022 Calcium [Mass/Vol] 9.4 mg/dL 8.5-10.1 [facility] Serum or plasma creatinine m easurement (mass/volume)Ordered By: Dr. Mallory on 07-19-2022 Creatinine [Mass/Vol] 1.15 mg/dL 0.70-1.30 [facility] Comment on above: The validity of the calculated GFR & GFRAA in patients over 70 years has not been determined. Clinical correlation is essential. Serum or plasma urea nitroge n measurement (mass/volume)Ordered By: Dr. Mallory on 07-19-2022 Urea nitrogen [Mass/Vol] 19 mg/dL 7-18 [facility] Squamous epithelial cells de tection in urine sediment by light microscopyOrdered By: Dr. Mallory on 07-19-2022 Epithelial cells.squamous LM Ql (Urine sed) 0-5 SEEN /hpf 0-5 [facility] Thin prep Papanicolaou smear with manual screeningOrdered By: Dr. Mallory on 07-19-2022 Thin prep Papanicolaou smear with manual screening 6 5-15 [facility] Urine blood detectionOrdered By: Dr. Mallory on 07-19-2022 RBC Ql (U) 250 /ul Negative [facility] RBC Ql (U) > 100 SEEN /hpf 0-5 [facility] Urine clarityOrdered By: Dr. Mallory on 07-19-2022 Clarity (U) Turbid Clear [facility] Urine color determinationOrd ered By: Dr. Mallory on 07-19-2022 Color (U) Brown Yellow [facility] Urine glucose detectionOrder ed By: Dr. Mallory on 07-19-2022 Glucose Ql (U) Normal mg/dl Normal [facility] Urine leukocyte esterase det ection by dipstickOrdered By: Dr. Mallory on 07-19-2022 Leukocyte esterase Test strip Ql (U) 25 /ul Negative [facility] Urine pHOrdered By: Dr. Anne Marie austin on 07-19-2022 pH (U) 5.0 [pH] 5.0 - 8.0 [facility] Urine sediment bacteria coun t by microscopy (number/high power field)Ordered By: Dr. Mallory on 07-19-2022 Bacteria LM.HPF (Urine sed) [#/Area] 2 /[HPF] None Seen [facility] Urine specific gravity measu rementOrdered By: Dr. Mallory on 07-19-2022 Specific gravity (U) [Rel density] 1.025 1.002-1.030 [facility] Urobilinogen Auto test strip Ql (U)Ordered By: Dr. Mallory on 07-19-2022 Urobilinogen Ql (U) Normal mg/dl Normal [facility] No Panel InformationOrdered By: Dr. Rudolph on 04-15-2022 Stool Calprotectin 168 ug/g 0-120 [facility] Comment on above: Concentration Interp retation Follow-Up<16 - 50 ug/g Normal None>50 -120 ug/g Borderline Re-evaluate in 4-6 weeks >120 ug/g Abnormal Repeat as clinically indicatedPerformed at: - [facility] [address] [id number] Director: Viridiana Schroeder MD, Phone: [phone] Absolute lymphocyte countOrd ered By: Dr. Rudolph on 04-14-2022 Lymphocytes Auto (Unsp spec) [#/Vol] 1.47 10*3/uL 0.83-4.51 [facility] Basophil percentageOrdered B y: Dr. Rudolph on 04-14-2022 Basophils/100 WBC (Bld) 0.1 % 0-1 [facility] Bilirubin [Mass/Vol] 0.50 mg/dL 0.20-1.[address] [facility] Comment on above: For patients on eltr ombopag therapy, use of Dimension [place] TBIL is not recommended. Eosinophils/100 WBC (Bld) 3.0 % 0-5 [facility] Neutrophils (Bld) [#/Vol] 4.3 10*3/uL 2.0-7.7 [facility] Neutrophils/100 WBC (Bld) 64.5 % 47-70 [facility] Protein [Mass/Vol] 7.2 g/dL 6.4-8.2 [facility] WBC (Bld) [#/Vol] 6.7 10*3/uL 4.4-11.0 [facility] Blood erythrocytes count (nu mber/volume)Ordered By: Dr. Rudolph on 04-14-2022 RBC (Bld) [#/Vol] 5.34 10*6/uL 4.6-6.2 [facility] Blood hemoglobin measurement (mass/volume)Ordered By: Dr. Rudolph on 04-14-2022 Hemoglobin (Bld) [Mass/Vol] 15.3 g/dL 13.0-16.5 [facility] Blood lymphocytes/100 leukoc ytesOrdered By: Dr. Rudolph on 04-14-2022 Lymphocytes/100 WBC (Bld) 22.0 % 19-41 [facility] Blood monocytes/100 leukocyt esOrdered By: Dr. Rudolph on 04-14-2022 Monocytes/100 WBC (Bld) 10.0 % 0-10 [facility] Blood platelet mean volumeOr dered By: Dr. Rudolph on 04-14-2022 Platelet mean volume (Bld) [Entitic vol] 10.3 fL 6.2-12.0 [facility] Determination of erythrocyte mean corpuscular volume (MCV)Ordered By: Dr. Rudolph on 04-14-2022 MCV (RBC) [Entitic vol] 84.1 fL 80-94 [facility] Direct bilirubinOrdered By: Dr. Rudolph on 04-14-2022 Bilirubin.direct [Mass/Vol] 0.14 mg/dL 0.00-0.30 [facility] Hematocrit Auto (Bld) [Volum e fraction]Ordered By: Dr. Rudolph on 04-14-2022 Hematocrit (Bld) [Volume fraction] 44.9 % 40-54 [facility] Laboratory - Chemistry and C hemistry - challengeOrdered By: Dr. Rudolph on 04-14-2022 ALP [Catalytic activity/Vol] 109 U/L 45-117 [facility] ALT [Catalytic activity/Vol] 24 U/L 16-61 [facility] Globulin (S) [Mass/Vol] 3.4 g/dL 2.2-4.2 [facility] Laboratory - Hematology and Cell countsOrdered By: Dr. Rudolph on 04-14-2022 Erythrocyte distribution width (RBC) [Entitic vol] 38.5 fL 35.1-43.9 [facility] Erythrocyte distribution width (RBC) [Ratio] 12.7 % 11.6-14.6 [facility] Immature granulocytes/100 WBC (Bld) 0.400 % 0.0-0.9 [facility] Comment on above: IG% - Immature Granu locytes (promyelocytes, myelocytes and metamyelocytes) > 1% indicates that a LEFT SHIFT is Present. MCH (RBC) [Entitic mass] 28.7 pg 27.0-32.0 [facility] Nucleated RBC/100 WBC (Bld) [Ratio] 0 % 0-5 [facility] MCHC Auto (RBC) [Mass/Vol]Or dered By: Dr. Rudolph on 04-14-2022 MCHC (RBC) [Mass/Vol] 34.1 g/dL 32-36 [facility] No Panel InformationOrdered By: Dr. Rudolph on 04-14-2022 Hepatitis Be Antigen Negative Negative [facility] Comment on above: Performed at: [address] Director: Gabino Randall PhD, Phone: [phone] Platelets bldOrdered By: Dr. Rudolph on 04-14-2022 Platelets (Bld) [#/Vol] 234 10*3/uL 150-450 [facility] Serum or plasma C reactive p rotein measurement (mass/volume)Ordered By: Dr. Rudolph on 04-14-2022 CRP [Mass/Vol] 11.70 mg/L 0.0-3.0 [facility] Comment on above: C-Reactive Protein ( CRP) provides useful information for thediagnosis, therapy and monitoring of inflammatory processesand associated diseases. For the evaluation of Relative Riskfor Cardiovascular Disease, a High Sensitivity CRP (HSCRP)should be ordered. Serum or plasma albumin es urement (mass/volume)Ordered By: Dr. Rudolph on 04-14-2022 Albumin [Mass/Vol] 3.8 g/dL 3.2-5.0 [facility] Thin prep Papanicolaou smear with manual screeningOrdered By: Dr. Rudolph on 04-14-2022 Thin prep Papanicolaou smear with manual screening 14 U/L 15-37 [facility] ANSER VDZon 12-03-2021 AB TO VEDOLIZUMAB[ATV] CONC. <1.6 Normal <1.6 [facility] Comment on above: Result Comment: [employer] testing services provide important information to aid in the diagnosis or prognosis of certain diseases. Test results should be used in conjunction with other clinical and diagnostic findings to make a diagnosis and/or assess prognosis. The test was developed and its performance characteristics determined by [email or web address]. It has not been cleared or approved by the U.S. FDA. The test is used for clinical purposes and should not be regarded as investigational or for research. [email or web address] is CAP accredited and certified under CLIA as qualified to perform high complexity clinical laboratory testing. This test may be covered by one or more US pending or issued patents- see [email or web address] for details. . For full report see separate report from [email or web address]. Performed By: #### V DZPR #### [facility] [address] [place] [address] ANSER VDZ:RESULTS SEE BELOW Normal [facility] Comment on above: Result Comment: DETE CTABLE SERUM VEDOLIZUMAB UNDETECTABLE ANTIBODIES TO VEDOLIZUMAB Performed By: #### V DZPR #### [facility] [address] [place] [address] VEDOLIZUMAB[VDZ] CONC. 9.2 ug/mL Abnormal <1.6 [facility] Comment on above: Performed By: #### V DZPR #### [facility] [address] [place] [address] CALPROTECTIN,FECALon 022 CALPROTECTIN,FECAL 155 ug/g High <=49 [facility] Comment on above: Result Comment: REFE RENCE INTERVAL: Calprotectin, Fecal by Immunoassay Less than 50 ug/g.........Normal 50-120 ug/g...............Borderline elevated, test should be re-evaluated in 4-6 weeks. 121 ug/g or greater.......Elevated Performed By: [facility] [address] [place] [address] Brineyard Supervisor: Aneesh Landers MD, PhD Performed By: #### C ALPR #### [facility] [address] [place] [address] Anser VDZon 11-30-2021 Anser VDZ <1.6 <1.6 [facility]-Ad min [facility] Work Phone: Comment on above: [email or web address] testing s ervices provide important information to aid in the diagnosis or prognosis of certain diseases. Test results should be used in conjunction with other clinical and diagnostic findings to make a diagnosis and/or assess prognosis. The test was developed and its performance characteristics determined by [email or web address]. It has not been cleared or approved by the U.S. FDA. The test is used for clinical purposes and should not be regarded as investigational or for research. [email or web address] is CAP accredited and certified under CLIA as qualified to perform high complexity clinical laboratory testing. This test may be covered by one or more US pending or issued patents- see [employer] for details..For full report see separate report from [email or web address]. Anser VDZ 9.2 ug/mL Abnormal <1.6 [facility]-Ad min [facility] I Work Phone: Anser VDZ SEE BELOW [facility] terology-Ad min [facility] I Work Phone: Comment on above: DETECTABLE SERUM TALI OLIZUMAB UNDETECTABLE ANTIBODIES TO VEDOLIZUMAB C Reactive Protein, Serumon 11-30-2021 CRP [Mass/Vol] 5.95 mg/dL Abnormal [facility]-Gastroe n terology-Ad min [facility] Work Phone: Comment on above: REF VALUE< 1.00 C-REACTIVE PROTEINon 2 022 C-REACTIVE PROTEIN 5.95 mg/dL Abnormal [facility] Comment on above: Result Comment: REF VALUE < 1.00 Performed By: #### C RP #### [facility] [address] [place] [address] CBC AND DIFFERENTIALon 11-30 % AUTOMATED IMMATURE GRAN 0.4 % Normal 0.0 - 0.9 [facility] Comment on above: Result Comment: Aislinn ture Granulocyte Count (IG) includes promyelocytes, myelocytes and metamyelocytes but does not include bands. Percent differential counts (%) should be interpreted in the context of the absolute cell counts (cells/L). Performed By: #### C BCDF #### [facility] [address] [place] [address] Basophils (Bld) [#/Vol] 0.02 10*3/uL Normal 0.00 - 0.10 [facility] Comment on above: Performed By: #### C BCDF #### [facility] [address] [place] [address] Basophils/100 WBC (Bld) 0.2 % Normal 0.0 - 2.0 [facility] Comment on above: Performed By: #### C BCDF #### [facility] [address] [place] [address] Eosinophils (Bld) [#/Vol] 0.06 10*3/uL Normal 0.00 - 0.70 [facility] Comment on above: Performed By: #### C BCDF #### [facility] [address] [place] [address] Eosinophils/100 WBC (Bld) 0.5 % Normal 0.0 - 6.0 [facility] Comment on above: Performed By: #### C BCDF #### [facility] [address] [place] [address] Erythrocyte distribution width (RBC) [Ratio] 13.2 % Normal 11.5 - 14.5 [facility] Comment on above: Performed By: #### C BCDF #### [facility] [address] [place] [address] Hematocrit (Bld) [Volume fraction] 48.1 % Normal 41.0 - 52.0 [facility] Comment on above: Performed By: #### C BCDF #### [facility] [address] [place] [address] Hemoglobin (Bld) [Mass/Vol] 16.0 g/dL Normal 13.5 - 17.5 [facility] Comment on above: Performed By: #### C BCDF #### [facility] [address] [place] [address] Lymphocytes (Bld) [#/Vol] 1.10 10*3/uL Low 1.20 - 4.80 [facility] Comment on above: Performed By: #### C BCDF #### [facility] [address] [place] [address] Lymphocytes/100 WBC (Bld) 9.8 % Normal 13.0 - 44.0 [facility] Comment on above: Performed By: #### C BCDF #### [facility] [address] [place] [address] MCHC (RBC) [Mass/Vol] 33.3 g/dL Normal 32.0 - 36.0 [facility] Comment on above: Performed By: #### C BCDF #### [facility] [address] [place] [address] MCV (RBC) [Entitic vol] 86 fL Normal 80 - 100 [facility] Comment on above: Performed By: #### C BCDF #### [facility] [address] [place] [address] Monocytes (Bld) [#/Vol] 0.80 10*3/uL Normal 0.10 - 1.00 [facility] Comment on above: Performed By: #### C BCDF #### [facility] [address] [place] [address] Monocytes/100 WBC (Bld) 7.1 % Normal 2.0 - 10.0 [facility] Comment on above: Performed By: #### C BCDF #### [facility] [address] [place] [address] Neutrophils (Bld) [#/Vol] 9.21 10*3/uL High 1.20 - 7.70 [facility] Comment on above: Performed By: #### C BCDF #### [facility] [address] [place] [address] Neutrophils/100 WBC (Bld) 82.0 % Normal 40.0 - 80.0 [facility] Comment on above: Performed By: #### C BCDF #### [facility] [address] [place] [address] NUCLEATED RBC 0.0 /100 WBC Normal 0.0-0.0 [facility] Comment on above: Performed By: #### C BCDF #### [facility] [address] [place] [address] Platelets (Bld) [#/Vol] 251 10*3/uL Normal 150 - 450 [facility] Comment on above: Performed By: #### C BCDF #### [facility] [address] [place] [address] RBC 5.59 x10E12/L Normal 4.50 - 5.90 [facility] Comment on above: Performed By: #### C BCDF #### [facility] [address] [place] [address] WBC (Bld) [#/Vol] 11.2 10*3/uL Normal 4.4 - 11.3 [facility] Comment on above: Performed By: #### C BCDF #### [facility] [address] [place] [address] COMPREHENSIVE PANELon 2021 Albumin [Mass/Vol] 4.7 g/dL Normal 3.4 - 5.0 [facility] Comment on above: Performed By: #### C MP #### [facility] [address] [place] [address] ALP [Catalytic activity/Vol] 109 U/L Normal 33 - 120 [facility] Comment on above: Performed By: #### C MP #### [facility] [address] [place] [address] ALT [Catalytic activity/Vol] 17 U/L Normal 10 - 52 [facility] Comment on above: Result Comment: Zainab ents treated with Sulfasalazine may generate falsely decreased results for ALT. Performed By: #### C MP #### [facility] [address] [place] [address] Anion gap [Moles/Vol] 13 mmol/L Normal 10 - 20 [facility] Comment on above: Performed By: #### C MP #### [facility] [address] [place] [address] AST [Catalytic activity/Vol] 15 U/L Normal 9 - 39 [facility] Comment on above: Performed By: #### C MP #### [facility] [address] [place] [address] Bilirubin [Mass/Vol] 0.6 mg/dL Normal 0.0 - 1.2 [facility] Comment on above: Performed By: #### C MP #### [facility] [address] [place] [address] Calcium [Mass/Vol] 9.5 mg/dL Normal 8.6 - 10.6 [facility] Comment on above: Performed By: #### C MP #### [facility] [address] [place] [address] Chloride [Moles/Vol] 104 mmol/L Normal 98 - 107 [facility] Comment on above: Performed By: #### C MP #### [facility] [address] [place] [address] Creatinine [Mass/Vol] 0.94 mg/dL Normal 0.50 - 1.30 [facility] Comment on above: Performed By: #### C MP #### [facility] [address] [place] [address] eGFR MALE >90 Normal >90 [facility] Comment on above: Result Comment: CALC ULATIONS OF ESTIMATED GFR ARE PERFORMED USING THE 2020 CKD-EPI STUDY REFIT EQUATION WITHOUT THE RACE VARIABLE FOR THE IDMS-TRACEABLE CREATININE METHODS. https://jasn.asnjournals.org/content//ASN.59207 62511 Performed By: #### C MP #### [facility] [address] [place] [address] Glucose [Mass/Vol] 97 mg/dL Normal 74 - 99 [facility] Comment on above: Performed By: #### C MP #### [facility] [address] [place] [address] HCO3 (Bld) [Moles/Vol] 28 mmol/L Normal 21 - 32 [facility] Comment on above: Performed By: #### C MP #### [facility] [address] [place] [address] Potassium [Moles/Vol] 4.4 mmol/L Normal 3.5 - 5.3 [facility] Comment on above: Performed By: #### C MP #### [facility] [address] [place] [address] Protein [Mass/Vol] 7.4 g/dL Normal 6.4 - 8.2 [facility] Comment on above: Performed By: #### C MP #### [facility] [address] [place] [address] Sodium [Moles/Vol] 141 mmol/L Normal 136 - 145 [facility] Comment on above: Performed By: #### C MP #### [facility] [address] [place] [address] Urea nitrogen [Mass/Vol] 15 mg/dL Normal 6 - 23 [facility] Comment on above: Performed By: #### C MP #### [facility] [address] [place] [address] Complete Blood Count + Diffe rentialon 11-30-2021 Basophils/100 WBC (Bld) 0.2 % 0.0 - 2.0 [facility] Work Phone: Erythrocyte distribution width (RBC) [Ratio] 13.2 % See Below [facility]-Ad min [facility] Work Phone: Comment on above: Reference Range: 11. 5 - 14.5 Hematocrit (Bld) [Volume fraction] 48.1 % See Below [facility]ology-Ad min [facility] Work Phone: Comment on above: Reference Range: 41. 0 - 52.0 Hemoglobin (Bld) [Mass/Vol] 16.0 g/dL See Below [facility]ology-Ad min [facility] Work Phone: Comment on above: Reference Range: 13. 5 - 17.5 Lymphocytes/100 WBC (Bld) 9.8 % See Below [facility]ology-Ad min [facility] Work Phone: Comment on above: Reference Range: 13. 0 - 44.0 MCHC (RBC) [Mass/Vol] 33.3 g/dL See Below [facility]en terology-Ad min [facility] Work Phone: Comment on above: Reference Range: 32. 0 - 36.0 MCV (RBC) [Entitic vol] 86 fL 80 - 100 [facility]-Ad min [facility] Work Phone: Monocytes/100 WBC (Bld) 7.1 % 2.0 - 10.0 [facility]-Ad min [facility] Work Phone: Neutrophils/100 WBC (Bld) 82.0 % See Below [facility]-Ad min [facility] Work Phone: Comment on above: Reference Range: 40. 0 - 80.0 Platelets (Bld) [#/Vol] 251 10*3/uL 150 - 450 [facility]-Ad min [facility] Work Phone: RBC (Bld) [#/Vol] 5.59 {x10E12/L} See Below [facility]ology-Ad min [facility] Work Phone: Comment on above: Reference Range: 4.5 0 - 5.90 WBC (Bld) [#/Vol] 11.2 10*3/uL 4.4 - 11.3 [facility]Ga stroen terology-Ad min [facility] Work Phone: Complete Blood Count + Differential 0.02 {x10E9/L} See Below [facility]ology-Ad min [facility] Work Phone: Comment on above: Reference Range: 0.0 0 - 0.10 Complete Blood Count + Differential 0.06 {x10E9/L} See Below [facility]ology-Ad min [facility] Work Phone: Comment on above: Reference Range: 0.0 0 - 0.70 Complete Blood Count + Differential 0.80 {x10E9/L} See Below [facility] terology-Ad min [facility] Work Phone: Comment on above: Reference Range: 0.1 0 - 1.00 Complete Blood Count + Differential 1.10 {x10E9/L} below low threshold See Below [facility]ology-Ad min [facility] Work Phone: Comment on above: Reference Range: 1.2 0 - 4.80 Complete Blood Count + Differential 9.21 {x10E9/L} above high threshold See Below [facility]ology-Ad min [facility] Work Phone: Comment on above: Reference Range: 1.2 0 - 7.70 Complete Blood Count + Differential 0.5 % 0.0 - 6.0 [facility]-Ad min [facility] Work Phone: Complete Blood Count + Differential 0.4 % 0.0 - 0.9 [facility]-Ad min [facility] Work Phone: Comment on above: Immature Granulocyte Count (IG) includes promyelocytes, myelocytes and metamyelocytes but does not include bands. Percent differential counts (%) should be interpreted in the context of the absolute cell counts (cells/L). Complete Blood Count + Differential 0.0 {/100_WBC} 0.0-0.0 [facility]-Ad min [facility] Work Phone: HIV 1/2 ANTIGEN/ANTIBODY SCR EEN WITH REFLEX TO CONFIRMATIONon 11-30-2021 HIV 1/2 AG/AB SCREEN Non-Reactive Normal NONREACTIVE U [facility] Comment on above: Result Comment: HIV Ag/Ab screen is performed using the Siemens [employer] HIV Ag/Ab Combo assay which detects the presence of HIV p24 antigen as well as antibodies to HIV-1 (Group M and O) and HIV-2. . No laboratory evidence of HIV infection. If acute HIV infection is suspected, consider testing for HIV RNA by PCR (viral load). Performed By: #### H IV #### [facility] [address] [place] [address] Lab Specimen Source Normal [facility] Comment on above: Performed By: #### H IV #### [facility] [address] [place] [address] HIV 1+2 Ab Qn (S) Non-Reactive See Below [facility]-Ga ti terology-Ad luke Mendoza [facility] Work Phone: Comment on above: SOURCE: Reference Ra nge: NONREACTIVE HIV Ag/Ab screen is performed using the Siemens [employer]ell[employer] HIV Ag/Ab Combo assay which detects the presence of HIV p24 antigen as well as antibodies to HIV-1 (Group M and O) and HIV-2..No laboratory evidence of HIV infection. If acute HIV infection is suspected, consider testing for HIV RNA by PCR (viral load). Initial Visit (Gastroenterol ogy)on 11-30-2021 Initial Visit (Gastroenterology) Diagnoses/Problems Assessed Crohn's disease (555.9) (K50.90) Abdominal pain, lower (789.09) (R10.30) Orders Abdominal pain, lower Calprotectin, Fecal; Status:In Progress - Specimen/Data Collected; Done: 30Nov2021 Perform:Lab Services - Lab To Draw (Non-Blood Test); Due:28Feb2022;Ordered; For:Abdominal pain, lower; Ordered By:Colin Choi; HIV 1/2 ANTIGEN/ANTIBODY SCREEN WITH REFLEX TO CONFIRMATION; Status:In Progress - Specimen/Data Collected; Done: 30Nov2021 Perform:Lab Services - Lab To Draw (Blood Test); Due:28Feb2022;Ordered; For:Abdominal pain, lower; Ordered By:Colin Choi; Crohn's disease Start: Loperamide HCl - 2 MG Oral Capsule; take 1 - 2 capsules up to 4 times a day as needed. Max per day is 8 Rx By: Colin Choi; Dispense: 30 Days ; #:240 Capsule; Refill: 6;For: Crohn's disease; ANNA = N; Verified Transmission to [id number]; Last Updated By: Brenda Goss; 11/30/2021 12:06:35 PM Gill ELLISON; Status:In Progress - Specimen/Data Collected; Done: 30Nov2021 Perform:Lab Services - Lab To Draw (Blood Test); Due:28Feb2022;Ordered; For:Crohn's disease; Ordered By:Colin Choi; C Reactive Protein, Serum; Status:In Progress - Specimen/Data Collected; Done: 30Nov2021 Perform:Lab Services - Lab To Draw (Blood Test); Due:28Feb2022;Ordered; For:Crohn's disease; Ordered By:Colin Choi; Colonoscopy Screening; Status:Hold For - Scheduling; Requested for:30Nov2021; Perform:[facility] Endoscopy; Due:28Feb2022;Ordered; For:Crohn's disease; Ordered By:Colin Choi; Patient competent to provide consent? : Yes-pt mentally competent to provide consent Sedation Type : Moderate (Routine) Complete Blood Count + Differential; Status:In Progress - Specimen/Data Collected; Done: 30Nov2021 Perform:Lab Services - Lab To Draw (Blood Test); Due:28Feb2022;Ordered; For:Crohn's disease; Ordered By:Colin Choi; Comprehensive Metabolic Panel; Status:In Progress - Specimen/Data Collected; Done: 30Nov2021 Perform:Lab Services - Lab To Draw (Blood Test); Due:28Feb2022;Ordered; For:Crohn's disease; Ordered By:Colin Choi; SocHx: Never a smoker Tobacco Use Screening; Status:Complete; Done: 30Nov2021 Perform:Not Applicable;Ordered; For:SocHx: Never a smoker; Ordered By:Cecilia Cordero; Patient Discussion/Summary Thank you for coming in to see me today. As we discussed, my suspicion is that your symptoms relate in part to some persistent mild left-sided colonic inflammation from your inflammatory bowel disease and are in part related to changes in bowel habits following the surgery that you had several years ago. After discussion with Dr. Rudolph, and given consideration of the medicines that you are currently taking, it is recommended that we repeat a colonoscopy for evaluation before deciding about any change in treatment. At this time, I recommend the following approach to your care and management: 1) continue with Entyvio infusions 2) continue with Xeljanz twice daily 3) check labs 4) check stool fecal calprotectin 5) schedule colonoscopy at [facility] 6) try starting a fiber supplement, such as Metamucil, 1 tablespoon once daily along with loperamide 1 to 2 tablets twice daily to see if this improves your bowel habits. The dose of the Metamucil can be increased to 1 tablespoon twice daily as needed and the dose of the loperamide can be increased to 2 tablets 4 times daily as needed 7) we will decide about any adjustment to treatment based on the results of the lab results, stool test, and colonoscopy Provider Impressions IBD colitis-originally diagnosed with ulcerative colitis, but later changed to Crohn's disease. However, the diagnosis of Crohn's disease was at a time when he had histoplasmosis infection and it may be, based on subsequent course, that the original diagnosis of ulcerative colitis was correct. In speaking with the patient and Dr. Rudolph, it is clear that Entyvio has helped some, but he is never reestablished complete symptom control. It is difficult to know if this is all driven by disease, or if some of this relates to his ileocolonic resection and altered bowel habits postoperatively. His last fecal calprotectin, approximately 8 months ago, was only 147. This argues that his disease, though still present, is not particularly severe He has tried cholestyramine in the past postoperatively and there was no real change in his symptoms, so this is not bile acid related diarrhea. It is difficult to know whether the patient needs more medication (e.g. change to another biologic, such as Stelara or Skyrizi), or, that he needs more antimotility agents to try to improve his bowel habits. Though symptomatic with diarrhea, he does not seem particularly ill. To best guide next steps, we will go ahead and repeat laboratory studies, fecal calprotectin, and a colonoscopy. This will give us a better sense of exactly where his disease is while continuing current therapy (more content not included)... Normal [facility] - Chemistry and C hemistry - challengeon 11-30-2021 Calprotectin (Stl) [Mass/Mass] 155 ug/g above high threshold <=49 MG-Gastroen terology-Ad min [facility] Work Phone: Comment on above: REFERENCE INTERVAL: Calprotectin, Fecal by Immunoassay Less than 50 ug/g.........Normal 50-120 ug/g...............Borderline elevated, test should be re-evaluated in 4-6 weeks. 121 ug/g or greater.......ElevatedPerformed By: [employer] [place] [id number] Director: Aneesh Landers MD, PhD Albumin BCP dye [Mass/Vol] 4.7 g/dL 3.4 - 5.0 [facility]astroen terology-Ad min [facility] Work Phone: ALP [Catalytic activity/Vol] 109 U/L 33 - 120 [facility] Work Phone: ALT With P-5'-P [Catalytic activity/Vol] 17 U/L 10 - 52 [facility]ology[facility] Work Phone: Comment on above: Patients treated wit h Sulfasalazine may generate falsely decreased results for ALT. Anion gap [Moles/Vol] 13 mmol/L 10 - 20 [facility]en terology[facility] Work Phone: AST With P-5'-P [Catalytic activity/Vol] 15 U/L 9 - 39 [facility]en [facility]ology[facility] Work Phone: Bilirubin [Mass/Vol] 0.6 mg/dL 0.0 - 1.2 MG-G astroen terology-[facility] Work Phone: Calcium [Mass/Vol] 9.5 mg/dL 8.6 - 10.6 MG-Gas troen terology-[facility] Work Phone: Chloride [Moles/Vol] 104 mmol/L 98 - 107 MG-G astroen terology-[facility] Work Phone: CO2 [Moles/Vol] 28 mmol/L 21 - 32 MG-Gastro en terology-[facility] Work Phone: Creatinine [Mass/Vol] 0.94 mg/dL See Below MG- Gastroen terology-[facility] Work Phone: Comment on above: Reference Range: 0.5 0 - 1.30 Glucose [Mass/Vol] 97 mg/dL 74 - 99 [facility]Gas troen terology-[facility] Work Phone: Potassium [Moles/Vol] 4.4 mmol/L 3.5 - 5.3 MG- Gastroen terology-[facility] Work Phone: Protein [Mass/Vol] 7.4 g/dL 6.4 - 8.2 MG-Gas troen terology-[facility] Work Phone: Sodium [Moles/Vol] 141 mmol/L 136 - 145 MG-Gas troen terology-[facility] Work Phone: Urea nitrogen [Mass/Vol] 15 mg/dL 6 - 23 [facility]astroen terology-[facility] Work Phone: No Panel Informationon 11-30 >90 >90 [facility]astroen terology-[facility] Work Phone: Comment on above: CALCULATIONS OF AMINATA MATED GFR ARE PERFORMED USING THE 2020 CKD-EPI STUDY REFIT EQUATION WITHOUT THE RACE VARIABLE FOR THE IDMS-TRACEABLE CREATININE METHODS.https://jasn.asnjournals.org/content//A SN.3240773301 Tobacco Screening.on 022 Adult depression screening assessment No [facility] Work Phone: Fall risk assessment a) No falls within the last year [facility] Work Phone: Tobacco use status CPHS b) No [facility] Work Phone: Tobacco Screening. Yes [facility] Work Phone: Vital Signs Date Time Vital Sign Value Performing Clinician Facility 07-05-2023 08:02-0400 Body height 177.8 cm Surekha Signs Work Phone: [facility] 07-05-2023 08:02-0400 Body mass index (BMI) [Ratio] 32.14 kg/m2 Surekha Signs Work Phone: [facility] 07-05-2023 08:02-0400 Body temperature 97 [degF] Surekha Signs Work Phone: [facility] 07-05-2023 08:02-0400 Body weight 101.61 kg Surekha Signs Work Phone: [facility] 07-05-2023 08:02-0400 Diastolic blood pressure 78 mm[Hg] Surekha Signs Work Phone: [facility] 07-05-2023 08:02-0400 Heart rate 87 /min Surekha Signs Work Phone: [facility] 07-05-2023 08:02-0400 SaO2% (BldA) [Mass fraction] 97 % Surekha Signs Work Phone: [facility] 07-05-2023 08:02-0400 Systolic blood pressure 128 mm[Hg] Surekha Signs Work Phone: [facility] 06-03-2023 21:34-0500 Body temperature 98.8 [degF] [facility] 06-03-2023 21:34-0500 Diastolic blood pressure 90 mm[Hg] [facility] 06-03-2023 21:34-0500 Heart rate 80 /min [facility] 06-03-2023 21:34-0500 Respiratory rate 18 /min [facility] 06-03-2023 21:34-0500 SaO2% (BldA) [Mass fraction] 97 % [facility] 06-03-2023 21:34-0500 Systolic blood pressure 133 mm[Hg] [facility] 06-03-2023 19:38-0500 Body height 177.[address] [facility] 06-03-2023 19:38-0500 Body mass index (BMI) [Ratio] 33.2 kg/m2 [facility] 06-03-2023 19:38-0500 Body weight 104.[address] [facility] 07-19-2022 07:37-0400 Diastolic blood pressure 88 mm[Hg] [facility] 07-19-2022 07:37-0400 Heart rate 62 /min [facility] 07-19-2022 07:37-0400 Respiratory rate 15 /min [facility] 07-19-2022 07:37-0400 SaO2% (BldA) [Mass fraction] 98 % [facility] 07-19-2022 07:37-0400 Systolic blood pressure 129 mm[Hg] [facility] 07-19-2022 05:32-0400 Body height 177.[address] [facility] 07-19-2022 05:32-0400 Body mass index (BMI) [Ratio] 32.5 kg/m2 [facility] 07-19-2022 05:32-0400 Body temperature 97.6 [degF] [facility] 07-19-2022 05:32-0400 Body weight 102.[address] [facility] 11-30-2021 10:33-0400 Body height 173.99 cm Colin Choi MD Work Phone: [facility] [email or web address] Work Phone: 11-30-2021 10:33-0400 Body mass index [...] Phone: [facility] Work Phone: 11-30-2021 10:33-0400 0 1 Colin Choi MD Work [facility] Work Phone: Comment on above: [employer] Encounters Encounter Date Encounter Type Care Provider Facility Start: 10-28-2024 End: 10-28-[address] Soumya Aguilar DO Work Phone: [facility] Start: 10-28-2024 End: 10-28-[address] Joaquina Rudolph MD [facility] Work Phone: Start: 10-28-2024 End: 10-28-2024 ambulatory Joaquina Rudolph Facility:[facility] Start: 02-09-2024 End: 02-09-2024 Emergency department patient visit Rajinder Fitzgerald Facility:[facility] Start: 07-27-2023 End: 07-27-2023 ambulatory [facility] Work Phone: Start: 07-27-2023 End: 07-27-2023 Patient encounter procedure [facility] Work Phone: Start: 07-12-2023 End: 07-12-2023 ambulatory [facility] Work Phone: Start: 07-12-2023 End: 07-12-2023 Patient encounter procedure [facility] Work Phone: Start: 07-05-2023 End: 07-05-2023 ambulatory SUREKHA CASTANO [facility] Start: 07-05-2023 End: 07-05-2023 Office outpatient new 60 minutes Surekha Castano MD Work Phone: [facility] Comment on above: Histoplasmosis, unsp ecified (Primary Dx); Crohn's disease of both small and large intestine with other complication (HCC); 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) Start: 06-23-2023 Telephone encounter Bronwyn rico MD Work Phone: [facility] Medical [facility] Infectious Disease Comment on above: Appointment Request Start: 06-23-2023 End: 06-23-2023 ambulatory [facility] Work Phone: Start: 06-23-2023 End: 06-23-2023 [facility] Start: 06-22-2023 End: 06-22-2023 ambulatory [facility] Work Phone: Start: 06-22-2023 End: 06-22-2023 Patient encounter procedure [facility] Work Phone: Start: 06-03-2023 End: 06-03-2023 Emergency department patient visit [facility]Emer[facility] Work Phone: Start: 12-05-2022 End: 12-05-2022 ambulatory [facility] Work Phone: Start: 12-05-2022 End: 12-05-2022 Patient encounter procedure [facility] Work Phone: Start: 11-29-2022 End: 11-29-2022 ambulatory [facility] Work Phone: Start: 11-29-2022 End: 11-29-2022 [facility] Start: 11-03-2022 End: 11-03-2022 [facility] Work [facility] Start: 10-13-2022 End: 10-13-2022 ambulatory [facility] Work Phone: Start: 10-13-2022 End: 10-13-2022 [facility] Work Phone: Start: 07-28-2022 End: 07-28-2022 ambulatory [facility] Work Phone: Start: 07-28-2022 End: 07-28-2022 Patient encounter procedure [facility]Rad[facility], [facility] Start: 07-19-2022 End: 07-19-2022 Emergency department patient visit [facility] Start: 04-15-2022 End: 04-15-2022 ambulatory [facility] Work Phone: Start: 04-15-2022 End: 04-15-2022 Patient encounter procedure [facility] Start: 04-14-2022 End: 04-14-2022 ambulatory [facility] Work Phone: Start: 04-14-2022 End: 04-14-2022 Patient encounter procedure [facility] Start: 12-17-2021 End: 12-17-2021 ambulatory [facility] Work Phone: Start: 12-17-2021 End: 12-17-2021 Patient encounter procedure [facility] Start: 12-08-2021 Chart Update Colin Choi MD Work Phone: KG-Rliudojzrywrpbqp-Z [facility] Work Phone: Start: 12-01-2021 Chart Update Colin Choi MD Work Phone: NM-Rdghwbsnilxaztbv-T dmin [facility] Work Phone: Start: 11-30-2021 Current tobacco non- user cad cap copd pv dm Colin Choi MD Work Phone: [facility]Exp[facility]kq[facility]gfumrzhja[facility] Work Phone: Start: 01-04-2017 Ambulatory Joaquina Rudolph [facility] Start: 09-27-2016 End: 09-28-2016 Ambulatory JOAQUINA RUDOLPH [facility] Start: 03-22-2016 End: 03-24-2016 Evaluation and management of inpatient [facility] Facility:[facility] Procedures Date Procedure Procedure Detail Performing Clinician Start: 10-28-2024 In-vitro immunologic test Dr. Soumya fonseca DO Work Phone: Comment on above: QuantiFERON-TB Gold Plus is a qualitativ e indirect test forM tuberculosis infection (including disease) and isintended for use in conjunction with risk assessment,radiography, and other medical and diagnostic evaluations.The QuantiFERON-TB Gold Plus result is determined bysubtracting the Nil value from either TB antigen (Ag)value. The Mitogen tube serves as a control for the test. No response to M tub erculosis antigens detected.Infection with M tuberculosis is unlikely, but high riskindividuals should be considered for additional testing(ATS/IDSA/CDC Clinical Practice Guidelines, 2017). Thereference range is an Antigen minus Nil result of <0.35IU/mL.The specimen received for QuantiFERON testing was incubatedby the ordering institution. Specific procedures outlinedin our Directory of Services and in the package insert forthe QuantiFERON Gold (In Tube) test must be followed toenable for proper stimulation of cells for the productionof interferon gamma. Chemiluminescence immunoassaymethodologyPerformed at: [facility] [address] [id number] Director: Gabino Randall PhD, Phone: [phone] Start: 07-05-2023 C-reactive protein Surekha Castano MD Work Phone: Start: 07-05-2023 Sedimentation rate rbc automated Surekha Castano MD Work Phone: Start: 06-03-2023 Plain chest X-ray Start: 06-03-2023 SARS-CoV-2, Influenza & RSV (PCR) Start: 12-05-2022 Clostridium difficile detection Start: 07-28-2022 Diagnostic radiography of abdomen Start: 07-19-2022 CT of abdomen and pelvis without contrast Start: 03-22-2016 EXCISION CECUM PERQ ENDO PROVIDER UNKNOW N Start: 03-22-2016 EXCISION OF ILEUM PERQ E PROVIDER UNKNOW N Colonoscopy Colin Choi MD Work Phone: Esophagogastroduodenoscopy Apoorva Choi MD Work Phone: Small intestine excision Enrique Choi MD Work Phone: Plan of Treatment Date Care Activity Detail Author Start: 2042 RSV Immunization aged 60 or older (1 - 1-dose 60+ series) RSV Immunization aged 60 or older (1 - 1-dose 60+ series) [facility] Start: 2032 Zoster Vaccines (1 of 2) Zoster Vaccines (1 of 2) [facility] Start: 07-01-2024 End: 07-01-2024 Patient encounter procedure 07/01/2024 8:30 AM EDT Office Visit [facility] Infectious Disease [address] [place] [address] Surekha Castano MD [address] [place] [address] [facility] Start: 07-05-2023 End: 07-05-2023 Patient encounter procedure 07/05/2023 8:00 AM EDT Office Visit [facility] Infectious Disease [address] [place] [address] Surekha Castano MD [address] [id number] [facility] Start: 06-03-2023 [facility] Start: 12-09-2022 COVID-19 Vaccine ( season) COVID-19 Vaccine ( season) [facility] Start: 12-09-2022 Influenza vaccination Influenza Vaccine (#1) [facility] Start: 12-05-2022 Procedure [facility] Start: 12-17-2021 Procedure [facility] Work Phone: Start: 09-10-2020 COVID-19 Vaccine (3 - Moderna risk series) COVID-19 Vaccine (3 - Moderna risk series) [facility] Start: 05-02-2002 DTaP/Tdap/Td Vaccines (6 - Tdap) DTaP/Tdap/Td Vaccines (6 - Tdap) [facility] Start: 2001 Hepatitis A Vaccines (1 of 2 - Risk 2-dose series) Hepatitis A Vaccines (1 of 2 - Risk 2-dose series) [facility] Start: 2001 Hepatitis B Vaccines (1 of 3 - 19+ 3-dose series) Hepatitis B Vaccines (1 of 3 - 19+ 3-dose series) [facility] Start: 2001 Zoster Vaccines (1 of 2) Zoster Vaccines (1 of 2) [facility] Start: 2000 Diabetes mellitus screening Diabetes Screening [facility] Start: 2000 Hepatitis C screening Hepatitis C Screening [facility] Start: 1995 Varicella vaccination Varicella Vaccines (1 of 2 - 13+ 2-dose series) [facility] Start: 1994 Depression Screening Depression Screening [facility] Start: 1988 Pneumococcal Vaccine: Pediatrics (0 to 5 Years) and At-Risk Patients (6 to 64 Years) (1 of 2 - PCV) Pneumococcal Vaccine: Pediatrics (0 to 5 Years) and At-Risk Patients (6 to 64 Years) (1 of 2 - PCV) [facility] Start: 1982 HIV screening HIV Screening [facility] Start: 1982 Lipid panel Lipid Panel [facility] Fungal Ab Panel (ID) Fungal Ab P jose luis (ID) Lab Routine Histoplasmosis, unspecified 07/05/2023 9:08 AM EDT [facility] Work Phone: Histoplasma antigen, urine Histoplasma antigen, urine Lab Routine Histoplasmosis, unspecified 07/05/2023 9:08 AM EDT [facility] Patient Education [facility] Work Phone: Patient referral [facility] Work Phone: Procedure [facility] Work Phone: Immunizations Immunization Date Immunization Notes [...] Phone: [facility] Work Phone: 06-15-1983 measles, mumps and rubella virus vaccine Colin Choi MD Work Phone: [facility] Work Phone: 1982 diphtheria, tetanus toxoids and pertussis vaccine Colin Choi MD Work Phone: [facility] Work Phone: 1982 trivalent poliovirus vaccine, live, oral Colin Choi MD Work Phone: [facility] Work Phone: 1982 diphtheria, tetanus toxoids and pertussis vaccine Colin Choi MD Work Phone: [facility] Work Phone: 1982 trivalent poliovirus vaccine, live, oral Colin Choi MD Work Phone: [facility] Work Phone: 1982 diphtheria, tetanus toxoids and pertussis vaccine Colin Choi MD Work Phone: [facility] Work Phone: 1982 trivalent poliovirus vaccine, live, oral Colin Choi MD Work Phone: [facility] Work Phone: Payers Date Payer Category Payer Self-pay [id number] 2022 Unknown 2022 Unknown [id number] 2016 Unknown [id number] Unknown [id number] Unknown [id number] Social History Date Type Detail Facility Start: 07-05-2023 Never a smoker Never a smoker [facility] Work Phone: Start: 03-31-2017 End: 06-03-2023 Tobacco smoking status NHIS Unknown if ever smoked [facility] Start: 05-25-2015 None [facility] Start: 05-25-2015 Spouse/ Signif icant Other [facility] Start: 1982 Sex Assigned At Male W [facility] Start: 1982 Sex Assigned At Not on file [facility] Start: 07-05-2023 Gender identity Not on file [facility] Start: 07-05-2023 End: 02-09-2024 Tobacco smoking status NHIS Never smoked tobacco [facility] Start: 07-05-2023 Tobacco use and exposure Smoke less tobacco non-user [facility] Start: 07-05-2023 Alcohol intake Ex-drinker (finding) [facility] Start: 07-05-2023 Alcohol Comment Dont drink often [facility] Start: 07-05-2023 Gender identity Identifies as male gender (finding) [facility] Start: 07-05-2023 Sexual orientation Bisexual (finding ) [facility] Mental Status Date Assessment Result Facility 06-03-2023 Cognitive function Level Of Cons ciousness Awake;Alert;Appropriate [facility] Work Phone: Clinical Notes 07-09-2014 to 07-05-2023 Surekha Castano MD - 07/05/2023 8:00 AM EDTPatient InstructionsTelephone Encounter - Zoe Barnes - 06/23/2023 3:18 PM EDTTelephone Encounter - Zoe Barnes - 06/23/2023 3:18 PM EDT Note Date & Type Note Facility 07-05-2023 History of Presen t illness Narrative Images from the original note were not included. [facility] Infectious Diseases Attending Outpatient Consult Note Reason for Consult: Histoplasmosis Requesting Physician: Dr Rudolph No chief complaint on file. HISTORY OF PRESENT ILLNESS The patient is a 43 y.o. male with presenting on chronic immunosuppressive therapy with Vedolizumab for chronic inflammatory bowel disease (unclear if Chron's or Ulcerative colitis). Was diagnosed at age 18 (1998).,GI care was under Dr Amadeo Birmingham at [facility] until he retired, then transferred his care to [facility], Dr Joaquina Rudolph. 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 He was treated with bowel resection of 6 inches of ileum in (03/2016). Itraconazole was at higher dose for unspecified time and then used for chronic suppression 200 mg bid He had been seeing Dr Pete Up at [facility] for the chronic Histoplasmosis suppressive therapy with Itraconazole for 4 yrs until 03/2020, after which he self stopped the Itraconazole since his insurance at that time did not cover it. He has not been followed by ID since, but Dr Rudolph recommended that he get re-established with ID Due to insurance coverage changes, he was referred here. Denies any severe infections. Weight is stable, having about 5-7 bowel movements per day. Past Medical History: Diagnosis Date Crohn's disease of both small and large intestine with other complication (HCC) 07/05/2023 History reviewed. No pertinent surgical history. Current Outpatient Medications Medication Sig Dispense Refill colestipol (Colestid) 1 g tablet Take 1 g by mouth 2 times daily. vedolizumab (Entyvio) 300 MG injection Infuse 1 mg into a venous catheter Daily with lunch. No current facility-administered medications for this visit. No Known Allergies Social History Socioeconomic History Marital status: Single Spouse name: Not on file Number of children: Not on file Years of education: Not on file Highest education level: Not on file Occupational History Not on file Tobacco Use Smoking status: Never Smokeless tobacco: Never Substance and Sexual Activity Alcohol use: Not Currently Comment: Dont drink often Drug use: Never Sexual activity: Not Currently Partners: Male control/protection: Condom Male Other Topics Concern Not on file Social History Narrative Not on file Social Determinants of Health Financial Resource Strain: Not on file Food Insecurity: Not on file Transportation Needs: Not on file Physical Activity: Not on file Stress: Not on file Social Connections: Not on file Intimate Partner Violence: Not on file Housing Stability: Not on file Family History Problem Relation Name Age of Onset Colon cancer Mother Cristel Vasquez Miscarriages / Stillbirths Sister Sue murphy Review of Systems Constitutional: Negative for activity change, appetite change, chills, diaphoresis, fatigue, fever and unexpected weight change. HENT: Negative for ear pain, hearing loss, sinus pressure and sinus pain. Eyes: Negative. Wears contacts Respiratory: Negative. Cardiovascular: Negative. Gastrointestinal: Positive for diarrhea. Negative for abdominal distention, abdominal pain, blood in stool, constipation, nausea and vomiting. Semi formed to watery stools Endocrine: Negative. Genitourinary: Negative for dysuria, frequency and urgency. Musculoskeletal: Negative. Skin: Negative. Neurological: Negative for tremors, speech difficulty, weakness and headaches. Hematological: Negative. Psychiatric/Behavioral: Negative for confusion and sleep disturbance. The patient is not nervous/anxious and is not hyperactive. Vitals: 07/05/23 0802 BP: 128/78 BP Location: Left arm Patient Position: Sitting BP Cuff Size: Adult Pulse: 87 Temp: 36.1 C (97 F) SpO2: 97% Weight: 102 kg (224 lb) Height: 1.778 m (5' 10) Physical Exam Vitals and nursing note reviewed. Constitutional: General: He is not in acute distress. Appearance: Normal appearance. He is not ill-appearing, toxic-appearing or diaphoretic. HENT: Head: Normocephalic and atraumatic. Nose: Nose normal. No congestion or rhinorrhea. Mouth/Throat: Mouth: Mucous membranes are moist. Pharynx: No oropharyngeal exudate or posterior oropharyngeal erythema. Eyes: General: No scleral icterus. Extraocular Movements: Extraocular movements intact. Pupils: Pupils are equal, round, and reactive to light. Cardiovascular: Rate and Rhythm: Normal rate and regular rhythm. Heart sounds: Normal heart sounds. No murmur heard. No gallop. Pulmonary: Effort: Pulmonary effort is normal. No respiratory distress. Breath sounds: Normal breath sounds. No wheezing or rhonchi. Chest: Chest wall: No tenderness. Abdominal: General: Abdomen is flat. Bowel sounds are normal. There is no distension. Palpations: Abdomen is soft. Tenderness: There is no abdominal tenderness. There is no right CVA tenderness or left CVA tenderness. Musculoskeletal: General: No tenderness or deformity. Normal range of motion. Cervical back: No rigidity or tenderness. Right lower leg: No edema. Left lower leg: No edema. Lymphadenopathy: Cervical: No cervical adenopathy. Skin: General: Skin is warm and dry. Findings: No erythema, lesion or rash. Neurological: General: No focal deficit present. Mental Status: He is alert and oriented to person, place, and time. Motor: No weakness. Gait: Gait normal. Psychiatric: Mood and Affect: Mood normal. Behavior: Behavior normal. Thought Content: Thought content normal. Judgment: Judgment normal. No visits with results within 1 Month(s) from this visit. Latest known visit with results is: No results found for any previous visit. ASSESSMENT & Plan Diagnosis Plan 1. Histoplasmosis, unspecified Discussed S/S of recurrent Histo as well as awareness of susceptibility to a lot of unusual, opportunistic infections and to notify me if persistent symptoms that we discussed. Labs drawn for baseline Histo Ab titer, Histo urine antigen (which will hopefully be UD) and sed rate, crp (which will not be specific for infection given underlying Immunosuppression Previously w/ disease in ileum now s/p resection but assume that he had disseminated disease in 2016 In setting of chronic inflammatory bowel disease and immunosuppression. 2. Crohn's disease of both small and large intestine with other complication (HCC) Treatment may be changed per Dr Rudolph since he is having 6-7 loose BM/d 3. 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) Currently on Vedolizumab I spent total time 65 minutes caring for this patient today,including reviewing the medical record including history of other medical problems, labs, records from another facility, interviewing and examining the patient and documenting, writing orders (prescriptions/meds), and instructing the patient on self care. Surekha Castano MD, MSc, FACP documented in this encounter [facility] 07-05-2023 Instructions Surekha Castano MD - 07/05/2023 8:00 AM EDT Please notify me if persistent fevers, night sweats, poor appetite/energy that are unexplained documented in this encounter [facility] 06-23-2023 Note See referral notes. Waiting to hear from Dr. Castano regarding scheduling. I called pt to inform of this, had to [facility] requesting call back. [facility] 06-23-2023 Telephone encounter Note See referral notes. Waiting to hear from Dr. Castano regarding scheduling. I called pt to inform of this, had to [facility] requesting call back. [facility] 06-23-2023 Miscellaneous Notes See referral notes. Waiting to hear from Dr. Castano regarding scheduling. I called pt to inform of this, had to [facility] requesting call back. Name of Caller: Nikole Contact Reason for Appointment: New Patient appointment. Patient has a referral with diagnosis of Histoplasmosis - suppressive rx. off rx >1 yr . Please contact to schedule. Office Name: Infectious Disease documented in this encounter [facility] 06-23-2023 Telephone encounter Note Name of Caller: Nikole Contact Reason for Appointment: New Patient appointment. Patient has a referral with diagnosis of Histoplasmosis - suppressive rx. off rx >1 yr . Please contact to schedule. Office Name: Infectious Disease [facility] 07-19-2022 Discharge summary Note Date/Time July 19, 2022 5:36am [facility] Medical Records Department [address] [place] [id number] Emergency Department Summary 07/19/22 MR#: [id number] Acct: [id number] Name: NIKOLE VASQUEZ [facility] Rep #:[id number] : 1980 42 From: Karen Mallory MD PCP: Dr. Soumya Aguilar, DO Status:REG ER Location: ED HPI History of Present Illness Chief Complaint: Flank Pain Informant: patient Onset/Context/Timing Onset: Today Current Severity: Severe Maximum Severity: Severe Narrative Narrative: Patient presents at 5:30 AM secondary to left flank pain. He states he had an episode of severe pain around 2 AM and it seemed to subside. Pain had again shortly ago. He denies history of kidney stone. He is holding his left flank area describing the area of pain. He states yesterday he felt normal. He has not noted any blood in his urine [facility] Medical History HTN (hypertension) Ulcerative colitis Home Medications amlodipine 2.5 mg tablet 2.5 mg PO DAILY 03/31/17 [History Last Taken Unknown] ketorolac 10 mg tablet 10 mg PO Q8H PRN pain #10 tabs 07/19/22 [Rx Last Taken Unknown] ondansetron 4 mg disintegrating tablet 4 mg PO Q8H PRN PRN Nausea #10 tabs 07/19/22 [Rx Last Taken Unknown] oxycodone-acetaminophen 5 mg-325 mg tablet (Percocet) 1 tab PO Q8H PRN pain 4 days #12 tabs 07/19/22 [Rx Last Taken Unknown] tamsulosin 0.4 mg capsule (Flomax) 0.4 mg PO DAILY #10 caps 07/19/22 [Rx Last Taken Unknown] Allergy/AdvReac Type Severity Reaction Status Date / Time No Known Allergies Allergy Verified 05/12/21 13:19 Family History Mother Colon cancer Other Hypertension Surgical History History of intestine removal Social History Smoking Status: Never smoker alcohol intake: never ROS ROS ED Constitutional Constitutional ED: Denies chills or fever(s) Eyes Eyes: Denies change in vision or discharge from eye(s) ENT ENT ED: Denies discharge from eye(s), rhinorrhea or sore throat Cardiovascular Cardiovascular: Denies chest pain or palpitations Respiratory/Chest Respiratory/Chest: Denies cough or dyspnea Gastrointestinal Gastrointestinal: Reports abdominal pain; Denies diarrhea, nausea or vomiting Genitourinary Genitourinary ED: Denies difficulty urinating or dysuria Musculoskeletal Musculoskeletal: Reports back pain; Denies extremity pain Integumentary Denies Abrasions or rash Neurologic Neurologic: Denies headache(s) or weakness Psychiatric Psychiatric: Denies anxiety or depression Allergic/Immunologic Allergic/Immunologic ED: Denies lip swelling or urticaria EXAM Physical Exam Const Vital Signs: 07/19/22 05:32 07/19/22 05:32 Temperature 97.5 F L 97.6 F L Temperature Source Temporal Temporal Pulse Rate 90 Respiratory Rate 14 Blood Pressure 176/120 H Blood Pressure Mean 138 Pulse Ox 97 Oxygen Delivery Method Room Air Positive well nourished and well developed General Appearance ED: well developed HEENT Reports normocephalic and head/scalp atraumatic Eyes PERRL and EOMs intact bilaterally Neck supple Chest Wall inspection of chest normal and palpation of chest normal Resp normal respiratory effort and clear to auscultation bilaterally Cardio regular rate and regular rhythm GI GI Narrative: Abdomen soft with no focal tenderness to palpation. Palpation: soft Back/Spine General Back: CVA tenderness left Extremity normal to inspection Neuro oriented x3 and no sensory deficits noted Sensorium / Orientation: alert Motor Exam: strength 5/5 throughout Psych Mood & Affect: anxious Skin no rashes or lesions noted MDM MDM MDM Narrative Medical decision making narrative: IV line established. Patient given morphine, Toradol, Zofran, IV fluids. Labwork obtained to evaluate for leukocytosis, anemia, and electrolyte derangement. Urinalysis obtained to evaluate for infection/hematuria. CT flankobtained to evaluate for kidney stone. Lab Data Attestation: I reviewed the patient's lab results. Labs: Laboratory Results - last 24 hr 07/19/22 07/19/22 07/19/22 05:30 05:30 06:34 WBC 9.5 RBC 5.60 Hgb 15.8 Hct 46.3 MCV 82.7 MCH 28.2 MCHC 34.1 RDW Std Deviation 38.5 RDW Coeff of Ramona 12.8 Plt Count 251 MPV 10.1 Immature Gran % (Auto) 0.300 Neut % (Auto) 72.8 H Lymph % (Auto) 17.6 L [place] % (Auto) 7.9 Eos % (Auto) 1.3 Baso % (Auto) 0.1 Absolute Neuts (auto) 6.9 Absolute Lymphs (auto) 1.68 Nucleated RBC % 0 Sodium 138 Potassium 3.7 Chloride 109 H Carbon Dioxide 23.0 Anion Gap 6 BUN 19 H Creatinine 1.15 Estim Creat Clear Calc 88.16 Est GFR (MDRD) Af Amer 90 Est GFR (MDRD) Non-Af 75 BUN/Creatinine Ratio 16.5 Glucose 143 H Calcium 9.4 Urine Color Brown Urine Clarity Turbid Urine pH 5.0 Ur Specific Mcdermitt 1.025 Urine Protein 100 H Urine Glucose (UA) Normal Urine Ketones 5 H Urine Occult Blood 250 H Urine Nitrite Negative Urine Bilirubin 1 H Urine Urobilinogen Normal Ur Leukocyte Esterase 25 H Radiography Diagnostic Testing: Clinical Impression(s) from Imaging Studies Abdomen/Pelvis CT 07/19/22 05:33 IMPRESSION: Left nephrolithiasis with mild obstructive uropathy secondary to 3 mm proximal ureteral stone. Punctate pulmonary nodules likely benign post infectious etiology. Follow-up as clinically warranted if concern for metastatic disease. Electronically Signed: Soumya Kwon MD at 6:11 EDT , Treatment and Re-Evaluation :: CBC and chemistry studies largely unremarkable. Renal function is normal. Urinalysis reveals evidence of blood but no nitrites and only 25 leukocyte Estrace. Patient did receive a second dose of morphine for continued pain. CT flank reveals a 3 mm proximal left ureter stone. Test results are discussed with patient and at bedside. He will be given asmall dose of Dilaudid at this time. He will be written prescription for Percocet, Zofran, Toradol, Flomax. He is referred to Dr. Solomon for follow-up. Return instructions are provided. Discharge Plan Triage Chief Complaint: Flank Pain ED Provider: Karen Mallory Dx/Rx/DC Orders Clinical Impression: Ureterolithiasis Instructions: ED Kidney Stone w/ Colic Prescriptions: New oxycodone-acetaminophen [Percocet] 5-325 mg tablet 1 tab PO Q8H PRN (Reason: pain) 4 Days Qty: 12 0RF ketorolac 10 mg tablet 10 mg PO Q8H PRN (Reason: pain) Qty: 10 0RF ondansetron 4 mg tablet,disintegrating 4 mg PO Q8H PRN PRN (Reason: Nausea) Qty: 10 0RF tamsulosin [Flomax] 0.4 mg capsule 0.4 mg PO DAILY Qty: 10 0RF No Action amlodipine 2.5 mg tablet 2.5 mg PO DAILY Primary Care Provider: Soumya Aguilar Referrals: Sky Solomon MD [Med Staff - Active Staff] - 3-5 Days if not improving Soumya Aguilar, DO [Primary Care Provider] - Disposition Disposition: Home, Self Care What to do if you have Problems For any increased pain, shortness of breath, bleeding, nausea or vomiting, chestpain, or any unexpected problems, contact your Primary Care Provider. Call [facility] ([phone]) or report to the closest Emergency Room. Call 911 if necessary. 07/19/22 0736 <Electronically signed by Karen Mallory MD> Cosigner Signature (if applicable): CC: Dr. 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 He did not think that either were particularly helpful.(+) 1st degree CRC- mother with CRC at age of 62. * Patient lost his follow up from 2009 to 2014 due to insurance issues. * Patient saw Dr. Joaquina Rudolph on 07/2014. 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 He was started on Humira and AZA 150 mg. * 05/2015 presented to [facility] with fever, abdominal pain and diarrhea. His WBC < 3. Patient was admitted and started on IV steroids (no source of infection was identified). CT scan showed active inflammation at TI and right side colon. Colonoscopy showed erythema and ulcerationat terminal Ileum, IC valve and cecum. Some scarring at sigmoid colon and rectum. Pathology with: TI: erosive Ileitis with numerous granuloma (GMS stain: numerous budding yeast suggestive of Histoplasma); random colon biopsies: chronic inactive colitis. Both Humira and AZA were discontinued and patient was switched to Sulfasalazine. Iitraconazole was started for Histoplasmosis and patient was transferred to [facility] for further management of histoplasmosis. * 09/2015 colonoscopy showed same chronic ulcerations and active disease in colon; 12/2015 Humira was resumed. * 03/2016 underwent Ileocecal resection at [facility] given lack of clinical response to Humira. * 12/2016 colonoscopy normal mucosa in rhiannon-terminal ileum; erythema and nodularity seen in sigmoid colon. * 04/2017, Humira switched with Entyvio and patient was started again on Imuran 100 mg daily. * 06/2019 colonoscopy with active inflammation and erythema in the rectosigmoid junction. Entyvio was increased to Q6 week * 03/2021 colonoscopy mild erythema, congestion and granularity in the rectum. Pathology-TI: unremarkable; right colon: nremarkable; left Colon: chronic active colitis. * Last FCP: 147 on 03/2021. * At last visit with Dr. Rudolph 08/2021 patient is still complaining of 6 - 7 BM every day. Patient was started Xeljanz on 09/2021. * In the office today, patient stated that he is at his baseline. He has 6 BM every day on average. This is associated with urgency but no other pertinent symptoms. Of note, patient has been off Xeljanz for 1 month and his Entyvio was postponed due to insurance issues; now at 89 weeks post-treatment.Patient denied any EIM of IBD. 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 He did not think that either were particularly helpful.(+) 1st degree CRC- mother with CRC at age of 62. * Patient lost his follow up from 2009 to 2014 due to insurance issues. * Patient saw Dr. Joaquina Rudolph on 07/2014. 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 He was started on Humira and AZA 150 mg. * 05/2015 presented to [facility] with fever, abdominal pain and diarrhea. His WBC < 3. Patient was admitted and started on IV steroids (no source of infection was identified). CT scan showed active inflammation at TI and right side colon. Colonoscopy showed erythema and ulcerationat terminal Ileum, IC valve and cecum. Some scarring at sigmoid colon and rectum. Pathology with: TI: erosive Ileitis with numerous granuloma (GMS stain: numerous budding yeast suggestive of Histoplasma); random colon biopsies: chronic inactive colitis. Both Humira and AZA were discontinued and patient was switched to Sulfasalazine. Iitraconazole was started for Histoplasmosis and patient was transferred to [facility] for further management of histoplasmosis. * 09/2015 colonoscopy showed same chronic ulcerations and active disease in colon; 12/2015 Humira was resumed. * 03/2016 underwent Ileocecal resection at [facility] given lack of clinical response to Humira. * 12/2016 colonoscopy normal mucosa in rhiannon-terminal ileum; erythema and nodularity seen in sigmoid colon. * 04/2017, Humira switched with Entyvio and patient was started again on Imuran 100 mg daily. * 06/2019 colonoscopy with active inflammation and erythema in the rectosigmoid junction. Entyvio was increased to Q6 week * 03/2021 colonoscopy mild erythema, congestion and granularity in the rectum. Pathology-TI: unremarkable; right colon: nremarkable; left Colon: chronic active colitis. * Last FCP: 147 on 03/2021. * At last visit with Dr. Rudolph 08/2021 patient is still complaining of 6 - 7 BM every day. Patient was started Xeljanz on 09/2021. * In the office today, patient stated that he is at his baseline. He has 6 BM every day on average. This is associated with urgency but no other pertinent symptoms. Of note, patient has been off Xeljanz for 1 month and his Entyvio was postponed due to insurance issues; now at 89 weeks post-treatment.Patient denied any EIM of IBD. [facility] Work Phone: Chief complaint Narrative - ReportedNew patient visit for consultation re: [id number]'[id number] Work Phone: chimd complaint Narrative - ReportedNew patient visit for consultation re: [facility] Work Phone: Evaluation noteNo assessment information available [facility] Work Phone: Evaluation note* Diagnosis Histoplasmosis, unspecified- Primary Crohn's disease of both small and large intestine with other complication (HCC) 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) documented in this [facility] Dis[facility] instructions Additional Instructions You have influenza A. Rest, drink plenty fluids, and take Tylenol and Motrin. [facility] Work Phone: Reason for referral (narrative)No reason for referral information availableWSelect Medical [facility] Work Phone: Summary Purpose Family History No Family History Records FoundUnknown Family Member Name Dates Details Family history [...] of cardiac di sorder: Father(V17.49, Z82.49) Status:Active Relationship Condition Age at Onset Recorded Date/T janie Not Specified Hypertension Unknown mother Malignant neoplasm of colon Unknown Advance Directives No Advanced Directives Records Found Advance Directive Response Recorded Date/ Time Advance Directives No May 12, 2015 8:32pm Living Will No May 12 8:32pm Power of Nurse Technician No May 12, 2015 8:32pm Advance Directive Response Recorded Date/ Time Advance Directives No May 12, 2015 7:32pm Living Will No May 12 7:32pm Power of Nurse Technician No May 12, 2015 7:32pm Advance Directive Response Recorded Date/ Time Advance Directives No May 12, 2015 8:32pm Living Will No July 19, 2022 5:34am Power of Nurse Technician No July 19 5:34am Advance Directive Response Recorded Date/ Time Advance Directives No May 12, 2015 7:32pm Living Will No June 03 9:34pm Power of Nurse Technician No June 03, 2023 9:34pm Advance Directive Response Recorded Date/ Time Advance Directives No May 12, 2015 8:32pm Living Will No June 03 10:34pm Power of Nurse Technician No June 03, 2023 10:34pm Advance Directive Response Recorded Date/ Time Advance Directives No May 12, 2015 8:32pm Chief Complaint and Reason for Visit Chief Complaint STOOL DROPOFF Chief Complaint STOOL DROPOFF flank pain Chief Complaint flank pain NONINFECTIVE GASTROENTERITIS AND COLITIS, UNSPECIF Chief Complaint NONINFECTIVE GASTROE NTERITIS AND COLITIS, UNSPECIF COLITIS HYPERSOMNIA W/ SNORING LAB AND STOOL SAMPLE - C-DIFF Chief Complaint GENERAL ILLNESS Chief Complaint GENERAL ILLNESS STOOL Chief Complaint GENERAL ILLNESS STOOL Hypersomnia, unspecified Chief Complaint GENERAL ILLNESS STOOL Hypersomnia, unspecified MICHELL,AUTOPAP Additional Source Comments (unrecognized sect ion and content) No Status Records FoundNo Status Records FoundNo Status Records FoundNo Status Records FoundNo Status Records FoundNo Status Records FoundNo Status Records Found INFORMATION SOURCE (unrecogn ized section and content) DATE CREATED AUTHOR 10/04/2017 [facility] DATE CREATED AUTHOR AUTHOR'S ORGANIZ ATION 10/04/2017 [facility] DATE CREATED AUTHOR AUTHOR'S ORGANIZ ATION 10/04/2017 [facility] DATE CREATED AUTHOR AUTHOR'S ORGANIZ ATION 12/03/2021 [employer] DATE CREATED AUTHOR AUTHOR'S ORGANIZ ATION 12/05/2021 [facility] ical [facility] DATE CREATED AUTHOR AUTHOR'S ORGANIZ ATION 07/09/2023 [facility] DATE CREATED AUTHOR AUTHOR'S ORGANIZ ATION 11/01/[address] [facility] Goals (unrecognized section and content) Goals may be documented in a n alternate sectionGoals may be documented in an alternate sectionGoals may be documented in an alternate sectionGoals may be documented in an alternate sectionGoals may be documented in an alternate sectionGoals may be documented in an alternate sectionGoals may be documented in an alternate sectionGoals may be documented in an alternate sectionGoals may be documented in an alternate sectionGoals may be documented in an alternate sectionGoals may be documented in an alternate sectionGoals may be documented in an alternate sectionGoals may be documented in an alternate sectionGoals may be documented in an alternate section Care Teams (unrecognized sec tion and content) Team Status: Active Member Role Status Dates Dr. Soumya Aguilar , Family Provider Active Dr. Soumya Aguilar DO Primary Care Provider Active Team Status: Inactive Member Role Status Dates Dr. Soumya Aguilar DO Primary Care Provider Active Dr. Joaquina Rudolph MD Attending Provider, Referring Pr ovider Active Team Status: Active Member Role Status Dates Dr. Soumya Aguilar DO Primary Care Provider Active Dr. Joaquina Rudolph MD Attending Provider, Referring Pr ovider Active Team Status: Inactive Member Role Status Dates Dr. Soumya Aguilar DO Primary Care Provider Active Dr. Karen Mallory MD Emergency Provider Active Team Status: Inactive Member Role Status Dates Dr. Soumya Aguilar DO Primary Care Provider Active Dr. Karen Mallory MD Attending Provider, Emergency Provider Active Team Status: Inactive Member Role Status Dates Dr. Soumya Aguilar DO Primary Care Provider Active Maribell Gonzalez , TIE MILL OPERATOR-C Attending Provider, Referrin g Provider Active Team Status: Inactive Member Role Status Dates Dr. Soumya Aguilar DO Primary Care Prov ider, Attending Provider, Referring Provider Active Team Status: Inactive Member Role Status Dates Dr. Soumya Aguilar DO Primary Care Provider Active Dr. Joaquina Rudolph MD Attending Provider Active Team Status: Inactive Member Role Status Dates Dr. Soumya Aguilar DO Primary Care Provider Active Dr. Rajinder Fitzgerald MD Emergency Provider Active Team Status: Inactive Member Role Status Dates Dr. Souyma Aguilar DO Primary Care Provider Active Dr. Rajinder Fitzgerald MD Attending Provider, Emergency Pro vider Active Team Status: Inactive Member Role Status Dates JI, COVERT Attending Provider Active Dr. Soumya Aguilar DO Primary Care Provider Active Team Status: Active Member Role Status Dates Dr. Soumya Aguilar DO Primary Care Provider Active JI, COVERT Attending Provider Active Team Status: Inactive Member Role Status Dates Dr. 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 Soumya Aguilar DO Primary Care Provider, Attendin g Provider Active Team Status: Active Member Role/Relationship Status Dates Dr. Soumya Aguilar DO Family Provider Active Dr. Soumya Aguilar DO Primary Care Provider Active Team Status: Inactive Member Role/Relationship Status Dates Dr. Soumya Aguilar DO Primary Care Provider Active Start: October 28, 2024 End: October 28, 2024 Dr. Joaquina Rudolph MD Attending Provider Active Start: October 28, 2024 End: October 28, 2024 Dr. Joaquina Rudolph MD Referring Provider Active Start: October 28, 2024 End: October 28, 2024 Reason for Visit (unrecogniz ed section and content) Reason Onset Date Comments Appointment Request 06/23/2023 Reason Comments Histoplasmosis Specialty Diagnoses / Procedures Referred By Contac t Referred To Contact Infectious Diseases Diagnoses Histoplasmosis - suppressive rx. off rx >1 yr Procedures UT OFFICE/OUTPATIENT NEW MODERATE MDM 45-59 MINUTES Joaquina Rudolph MD [address] [facility] [facility] [address] [place] [address] [facility] [address] [place] [address] Referral ID Status Reason Start Date Expiration Date Visits Re quested Visits Authorized [id number] Closed 07/19/2022 07/20/2023 1 1 FOR RECORDS PERTAINING TO PATIENTS WHO ARE [...] BE BASED ON THE PRIMARY CLINICAL RECORDS. [facility] [employer] [facility]. provides no warranty or guarantee of the accuracy or completeness of information in this document.
[2025-02-24 11:46] LABS: AST(SGOT) 19 U/L (<=37); Alanine Aminotransfer ALT/SGPT 21 U/L (<=46); Albumin, Serum 4.2 g/dL (3.5-5.0); Alkaline Phosphatase 95 U/L (40-129); Anion Gap 10 (5-15); BUN 16 mg/dL (4-19); BUN/Creat Ratio 17.6 RATIO (10-20); Calcium,Total 9.3 mg/dL (7.6-11.0); Carbon Dioxide 26.0 mmol/L (21.0-32.0); Chloride 106 mmol/L (98-108); Cholesterol 143 mg/dL (<=200); Globulin 2.5 g/dL (2.2-4.2); Glucose 100 mg/dL (70-99); Low Density Lipoprotein Calc. 86 mg/dL; Potassium 4.3 mmol/L (3.3-5.1); Triglycerides 111 mg/dL; Very Low Density Lipoprotein 22 mg/dL (5-40); cholesterol:hdl ratio screen 3.89
== END | disposition home or self-care (01) ==
PROVIDERS: PCP Family Medicine; Referring Provider Family Medicine; Visit Provider Family Medicine
DX: Z00.00 Encounter for general adult medical examination without abnormal findings (principal)
CPT/HCPCS: 36415; 80053; 80061

== ENCOUNTER 2025-03-20 00:55 | Emergency (ER) | payer OTHER, SELFPAY ==
[2025-03-20 00:56] VITALS: BP 161/100; PULSE 85; RESP 18; TEMP 36.8; O2SAT 100; BMI 34.0
--- NOTE | 2025-03-20 01:09 | CT_ITS ---
PROCEDURE: ABDOMEN/PELVIS W IV CONT ONLY 03/20/2025 REASON FOR EXAM: ? SBO TECHNIQUE: Procedure Code: [id number] Modality: CT Procedure: ABDOMEN/PELVIS W IV CONT ONLY Coronal and Sagittal reconstruction series were provided. CONTRAST: [id number] VOLUME: 100 mL One or more dose reduction techniques were used (e.g., Automated exposure control, adjustment of the mA and/or kV according to patient size, use of iterative reconstruction technique. RADIATION DOSE SUMMARY: CTDI Vol 13.71 mGy DLP :713.64 mGycm COMPARISON: 19-Jul-2022 FINDINGS: Currently detected diffuse rather uniform mural thickening of the jejunal loops with no obvious luminal dilatation or air fluid levels formation. Associated related mesenteric fat stranding with scattered endoluminal hyperdense areas that could represent ingested material versus polyps. Unremarkable ileal loops with no obvious obstruction. Stable metallic sutures of ileocolic anastomosis. Stable spastic changes of the rectum, sigmoid, descending and distal transverse colon with submucosal fatty changes. Stable caecum and ascending colon fecal loading. The stomach is unremarkable. The appendix is not identified. Average sized liver showing homogenous parenchymal attenuation with fatty changes. No dilated intra or extra-hepatic biliary tracts. Gall bladder showing no radiodense calculi. Normal appearance of the pancreas with clear surrounding fat planes. The spleen, adrenal glands, aorta and IVC are unremarkable. Non visualized left ureteric calculus with resolution of the related backpressure changes. Stable left renal non obstructing calculi. Both kidneys are of average size and showing smooth outline with preserved parenchymal thickness. No right renal calculi. No hydronephrosis. Distension of the urinary bladder showing no obvious masses. No obvious masses related to the pelvic viscera. Few pelvic phleboli. No ascites or free air. No obvious pathologically enlarged lymph nodes. Scanned osseous structures show no osseous destruction. Scanned lung bases show no obvious abnormalities. CT/Abdomen/Pelvis W IV Cont ONLY IMPRESSION: Currently detected jejunal loops mural thickening, possibly jejunitis with no o bvious luminal dilatation or air fluid levels formation. Associated endoluminal hyperdense areas that could represent ingeste d material versus polyps. Non visualized left ureteric calculus with resolution of the related backpressu re changes. Stable rest of the study findings. Reading [id number]
[2025-03-20] MEDS: 0.9% Normal Saline (1000mL) 1,000 ML 999 ML IV (01:18)
[2025-03-20 01:40] LABS: Hematocrit 42.5 % (40-54); Hemoglobin 15.1 g/dL (13.0-16.5); Immature Granulocytes Count 0.020 X10^3/uL (0.0-0.0); Mean Corp Hgb Conc 35.5 g/dL (32-36); Mean Corpuscular Volume 81.4 fL (80-94); Mean Platelet Vol. 10.0 fl (6.2-12.0); NRBC Flagged by Analyzer 0 % (0-5); Platelet Count 214 K/mm3 (150-450); RBC Distribution Width CV 12.5 % (11.6-14.6); RBC Distribution Width SD 37.2 fl (35.1-43.9); Red Blood Count 5.22 M/mm3 (4.6-6.2); White Blood Count 6.8 K/mm3 (4.4-11.0)
[2025-03-20 01:54] LABS: AST(SGOT) 18 U/L (<=37); Alanine Aminotransfer ALT/SGPT 19 U/L (<=46); Albumin, Serum 4.2 g/dL (3.5-5.0); Alkaline Phosphatase 101 U/L (40-129); Anion Gap 11 (5-15); BUN 16 mg/dL (4-19); BUN/Creat Ratio 13.4 RATIO (10-20); Bilirubin, Direct 0.11 mg/dL (0.00-0.30); Calcium,Total 9.6 mg/dL (7.6-11.0); Carbon Dioxide 24.7 mmol/L (21.0-32.0); Chloride 105 mmol/L (98-108); Estimated Creatinine Clearance 100.86 ml/min (50-250); Globulin 2.3 g/dL (2.2-4.2); Glucose 147 mg/dL (70-99); Lipase 75 U/L (13-75); Potassium 3.8 mmol/L (3.3-5.1)
[2025-03-20 01:56] VITALS: BP 151/97; PULSE 70; RESP 18; O2SAT 100
--- OUTSIDE RECORDS SUMMARY | 2025-03-20 02:19 | XMS RPT_ITS | CCD ---
Author Organization [facility] Care Team Providers Care Metal Loader Name Role Phone Joaquina Rudolph Unavailable Unavailable [...] Dr. Soumya Aguilar DO Primary Care Provider [phone] Dr. Joaquina Rudolph MD Attending Provider [phone] Dr. Joaquina Rudolph MD Referring Provider Joaquina [...] 07-05-2023 Episodic Other aftercare (2 sources) Other long term acute care registered nurse (current) drug therapy; Translations: [Other long term acute care registered nurse (current) drug therapy] Onset: 4 Episodic Other [...] [address] 42 ug/g Normal 0-120 [facility] Comment on above: Result Comment: Conc entration Interpretation Follow-Up < 5 - 50 ug/g Normal None >50 -120 ug/g Borderline Re-evaluate in 4-6 weeks >120 ug/g Abnormal Repeat as clinically indicated Performed at: - [address] [id number] Tape Controlled Machine Stitcher: Viridiana Schroeder MD, Phone: [phone] Performed By: #### L 500.3400, L3890.6102, L3400.8000, L7000.0700 #### [facility] [address] [place], [address] Quantiferon TB-Gold+on 10-30 QFT MITOGEN JT > 10.00 Normal . [facility] Comment on above: Performed By: #### L 500.3400, L3890.6102, L3400.8000, L7000.0700 #### [facility] [address] [place], [address] QFT NIL VALUE 0.22 IU/mL Normal . [facility] Comment on above: Performed By: #### L 500.3400, L3890.6102, L3400.8000, L7000.0700 #### [facility] [address] [place], [address] QFT TB GOLD+ Comment Normal . [facility] Comment on above: Result Comment: John [...] #### L 500.3400, L3890.6102, L3400.8000, L7000.0700 #### [facility] [address] [place], [address] QFT TB POS CRIT Negative Normal Negative [facility] Comment on above: Result Comment: No [...] interferon gamma. Chemiluminescence immunoassay methodology Performed at: [employer] [id number] Tape Controlled Machine Stitcher: Gabino Randall PhD, Phone: [phone] Performed By: #### L 500.3400, L3890.6102, L3400.8000, L7000.0700 #### [facility] [address] [place], [address] QFT TB1+ AG JT 0.14 IU/mL Normal . [facility] Comment on above: Performed By: #### L 500.3400, L3890.6102, L3400.8000, L7000.0700 #### [facility] [address] [place], [address] QFT TB2+ AG JT 0.09 IU/mL Normal . [facility] Comment on above: Performed By: #### L 500.3400, L3890.6102, L3400.8000, L7000.0700 #### [facility] [address] [place], [address] Bilirubin directOrdered By: Joaquina Rudolph on 10-28-2024 Bilirubin.direct [Mass/Vol] 0.18 mg/dL 0.00-0.30 [facility] Bilirubin, totalOrdered By: Joaquina Rudolph on 10-28-2024 Bilirubin [Mass/Vol] 0.57 mg/dL 0.00-1.30 [facility] Calprotectin stoolOrdered By : Joaquina Rudolph on 10-28-2024 Calprotectin stool 42 ug/g 0-120 [facility] Comment on above: Concentration Interp retation Follow-Up< 5 - 50 ug/g Normal None>50 -120 ug/g Borderline Re-evaluate in 4-6 weeks >120 ug/g Abnormal Repeat as clinically indicatedPerformed at: [facility] [address] [id number] Director: Viridiana Schroeder MD, Phone: [phone] [id number] 10-28-2024 HEP B Surf Ag Non-Reactive Normal Nonreactive [facility] Comment on above: Result Comment: Reac tive: Presumptive evidence of HBV. Repeatedly reactive samples must be confirmed using a neutralization test ([employer] HBsAg Confirmatory Test) Non-Reactive: HBsAg not detected; does not exclude the possibility of exposure to HBV Performed By: #### L 500.3400, L3890.6102, L3400.8000, L7000.0700 #### [facility] [address] [place], [place], [id number] Laboratory - Chemistry and C hemistry - challengeOrdered By: Joaquina Rudolph on 10-28-2024 AST [Catalytic activity/Vol] 23 U/L <38 [facility] Laboratory - Microbiology an d Antimicrobial susceptibilityOrdered By: Joaquina Rudolph on 10-28-2024 HBV surface Ag Ql (S) Non-Reactive Nonreactive [facility] Comment on above: Reactive: Presumptiv e evidence of HBV. Repeatedly reactive samples must be confirmed using a neutralization test ([employer] HBsAg Confirmatory Test)Non-Reactive: HBsAg not detected; does not exclude the possibility of exposure to HBV Liver Profileon 10-28-2024 Albumin [Mass/Vol] 4.6 g/dL Normal 3.5-5.0 [facility] Comment on above: Order Comment: CBCD Performed By: #### L 500.3400, L3890.6102, L3400.8000, L7000.0700 #### [facility] [address] [place], [address] ALK PHOS 124 U/L Normal 40-129 [facility] Comment on above: Order Comment: CBCD Performed By: #### L 500.3400, L3890.6102, L3400.8000, L7000.0700 #### [facility] [address] [place], [address] ALT [Catalytic activity/Vol] 21 U/L Normal <=46 [facility] Comment on above: Order Comment: CBCD Performed By: #### L 500.3400, L3890.6102, L3400.8000, L7000.0700 #### [facility] [address] [place], [address] AST [Catalytic activity/Vol] 23 U/L Normal <=37 [facility] Comment on above: Order Comment: CBCD Performed By: #### L 500.3400, L3890.6102, L3400.8000, L7000.0700 #### [facility] [address] [place], [address] Bilirubin [Mass/Vol] 0.57 mg/dL Normal 0.00-1.30 [facility] Comment on above: Order Comment: CBCD Performed By: #### L 500.3400, L3890.6102, L3400.8000, L7000.0700 #### [facility] [address] [place], [address] Bilirubin.direct [Mass/Vol] 0.18 mg/dL Normal 0.00-0.30 [facility] Comment on above: Order Comment: CBCD Performed By: #### L 500.3400, L3890.6102, L3400.8000, L7000.0700 #### [facility] [address] [place], [address] Globulin (S) [Mass/Vol] 2.7 g/dL Normal 2.2-4.2 [facility] Comment on above: Order Comment: CBCD Performed By: #### L 500.3400, L3890.6102, L3400.8000, L7000.0700 #### [facility] [address] [place], [address] T PROT 7.3 g/dL Normal 5.9-8.4 [facility] Comment on above: Order Comment: CBCD Performed By: #### L 500.3400, L3890.6102, L3400.8000, L7000.0700 #### [facility] [address] [place], [address] Qualitative QuantiFERON-TB g old in tube testOrdered By: Joaquina Rudolph on 10-28-2024 M. tuberculosis tuberculin stim IFN-g Ql (Bld) 0.14 IU/mL . [facility] Serum globulin measurementOr dered By: Joaquina Rudolph on 10-28-2024 Globulin (S) [Mass/Vol] 2.7 g/dL 2.2-4.2 [facility] Serum or plasma alanine smith otransferase (ALT) measurementOrdered By: Joaquina Rudolph on 10-28-2024 ALT [Catalytic activity/Vol] 21 U/L <47 [facility] Serum or plasma albumin es urement (mass/volume)Ordered By: Joaquina Rudolph on 10-28-2024 Albumin [Mass/Vol] 4.6 g/dL 3.5-5.0 [facility] Serum or plasma alkaline brionna sphatase measurementOrdered By: Joaquina Rudolph on 10-28-2024 ALP [Catalytic activity/Vol] 124 U/L 40-129 [facility] Total proteinOrdered By: Andry Rudolph on 10-28-2024 Protein [Mass/Vol] 7.3 g/dL 5.9-8.4 [facility] Chest PA and Lateralon 02-08 Chest PA and Lateral [facility] Imaging Services [address] [place] [address] Chest PA and Lateral MR#: [id number] Acct: [id number] Name: NIKOLE VASQUEZ II Rep #: [id number] : 1980 M 43 From: Han Sharma PCP: Dr. Soumya Aguilar DO Status: DEP ER Study: Chest PA and Lateral Date of Exam: 02/09/24 Exam# [id number] Ordering Dr: Rajinder Fitzgerald MD [id number] EXAM: XR CHEST, 2 VIEWS CLINICAL INDICATION: [...] Rajinder Fitzgerald MD; Dr. Soumya Aguilar DO Ergonomics Consultant: Signed Normal [facility] Emergency Department Summary on 02-09-2024 Emergency Department Summary [facility] Medical Records Department [address] [place] [address] Emergency Department Summary 02/09/24 MR#: [id number] Acct: [id number] Name: NIKOLE VASQUEZ II Rep #: [id number] : 1980 43 From: Rajinder Fitzgerald MD [...] CVA tend (more content not included)... Normal [facility] C-REACTIVE PROTEINon 024 CRP [Mass/Vol] 6.0 mg/L Normal <10.0 [facility] Comment on above: Performed By: #### L [id number] #### Public Safety Director: JACLYN MEHTA ([id number]) [facility] ([facility]) [address] [place] [address] C-reactive proteinon 024 CRP [Mass/Vol] 6.0 mg/L [facility] - 10.0 mg/L [facility] CRP [Mass/Vol]on 07-05-2023 Interpretation and review of laboratory results Normal [facility] ESR (Bld) [Velocity]Ordered By: Nigel Hough on 07-05-2023 Interpretation and review of laboratory results Abnormal [facility] FUNGAL AB PANEL (ID)on 07-04 ASPERGILLUS FLAVUS AB Negative Normal Negative [facility] Comment on above: Performed By: #### L [id number] #### [facility] ([employer]) [address] [place], [place] [facility] ASPERGILLUS FUMIGATUS AB Negative Normal Negative [facility] Comment on above: Result Comment: Interpretive Criteria: Negative: Antibody not detected Positive: Antibody detected A positive result is represented by 1 or more precipitin bands, and may indicate fungus ball, allergic bronchopulmonary aspergillosis (RANDALL) or invasive aspergillosis. Generally, the appearance of 3-4 bands indicates either fungus ball or RANDALL. Performed By: #### L [id number] #### [facility] ([employer]) [address] [place], [place] [facility] ASPERGILLUS NIGER AB Negative Normal Negative [facility] Comment on above: Performed By: #### L [id number] #### [facility] ([employer]) [address] [place], [facility] BLASTOMYCES AB Negative Normal Negative [facility] Comment on above: Result Comment: Interpretive Criteria: Negative: Antibody not detected Positive: Antibody detected A positive result is diagnostic of active or recent blastomycosis and is found in approximately 80% of proven cases of blastomycosis. Performed By: #### L [id number] #### [facility] ([employer]) [address] [place], [facility] MARGOT AB Negative Normal Negative [facility] Comment on above: Result Comment: Interpretive Criteria: Negative: Antibody Not Detected Positive: Antibody Detected Detection of antibody recognizing Margot is 70-80% specific for systemic candidiasis, and sensitivity is related to the immunocompetence of the patient. The immunocompromised patient with overwhelming candidiasis may not exhibit detectable Margot antibody. Performed By: #### L [id number] #### [facility] ([employer]) [address] [place], [facility] COCCIDIODES AB Negative Normal Negative [facility] Comment on above: Result Comment: Interpretive Criteria: [...] 1 year thereafter. Performed By: #### L [id number] #### [facility] ([employer]) [address] [place], [facility] H BAND Negative Normal Negative [facility] Comment on above: Result Comment: This immunodiffusion [...] the diagnosis of histoplasmosis. Test Performed by [facility], [address] [place] [address] Flakito Mackenzie M.D., Ph.D., Director of Laboratories , [place] [id number] Performed By: #### L [id number] #### [facility] ([employer]) [address] [place], [facility] M BAND Positive Abnormal Negative [facility] Comment on above: Performed By: #### L [id number] #### [facility] ([employer]) [address] [place], [facility] HISTOPLASMA ANTIGEN, URINEon 07-05-2023 HISTOPLASMA AG,URINE Not detected Normal [facility] Comment on above: Performed By: #### L [id number] #### [facility] ([facility]) [address] [place] [address] INTERPRETATION Not detected Normal Not Detected [facility] Comment on above: Result Comment: INTE RPRETIVE [...] developed and its performance characteristics determined by [employer]. It has not been cleared or approved by the U.S. Food and Drug Administration. This test was performed in a CLIA-certified laboratory and is intended for clinical purposes. Performed By: [facility] [address] [place] [address] Turret Lathe Operator: Aneesh Landers MD, PhD CLIA Number: [id number] Performed By: #### L [id number] #### [facility] ([facility]) [address] [place] [address] Office Visiton 07-05-2023 Follow-up visit [id number] Graham II 1980 M Date Provider Department Center 07/05/2023 56-SIGNS, SUREKHA J [facility] ID None Family History Problem Relation Age of Onset Colon cancer Mother Miscarriages / Stillbirths Sister Family Status - Relation Status Age at Mother Sister Level of Service:98973 [place] OFFICE/OUTPATIENT NEW HIGH MDM 60 MINUTES Reason for Visit and Comments: Histoplasmosis [Other] Normal [facility] PATINSon 07-05-2023 PATINS Please notify me if persistent fevers, night sweats, poor appetite/energy that are unexplained Normal [facility] Progress Noteon 07-05-2023 Progress Note [facility] Infectious Diseases Attending Outpatient Consult [...] care was under Dr Amadeo Birmingham at [facility] until he retired, then transferred his care to [facility], Dr Joaquina Rudolph. He had biopsy [...] had been seeing Dr Pete Up at [facility] for the chronic Histoplasmosis suppressive therapy [...] and large intestine with other complication ([facility]) 07/05/2023 History reviewed. No pertinent surgical history. [...] sounds are (more content not included)... Normal [facility] SEDIMENTATION RATE, AUTOMATE Don 07-05-2023 SEDIMENTATION RATE, ERYTHROCYTE 12 mm/hr High 0-10 [facility] Comment on above: Performed By: #### L [id number] #### Public Safety Director: JACLYN MEHTA ([id number]) [facility] ([facility]) [address] [place] [address] Sedimentation rate, automate dOrdered By: Nigel Hough on 07-05-2023 ESR (Bld) [Velocity] 12 mm/h High [facility] 36on 06-23-2023 36 Name of Caller: Berhane sanchez Contact Reason for Appointment: New Patient appointment. Patient has a referral with diagnosis of Histoplasmosis - suppressive rx. off rx >1 yr . Please contact to schedule. Office Name: Infectious Disease Normal [facility] No Panel Informationon 06-22 Stool Calprotectin 263 ug/g 0-120 [facility] Comment on above: Concentration Interp retation Follow-Up< 5 - 50 ug/g Normal None>50 -120 ug/g Borderline Re-evaluate in 4-6 weeks >120 ug/g Abnormal Repeat as clinically indicatedPerformed at: - [facility] [address] [id number] Director: Viridiana Schroeder MD, Phone: [phone] Basophil percentageon 2023 Bilirubin [Mass/Vol] 0.60 mg/dL 0.20-1.00 [facility] Comment on above: For patients on eltr ombopag therapy, use of Dimension [place] TBIL is not recommended. Chloride [Moles/Vol] 108 mmol/L 98-107 [facility] Glucose [Mass/Vol] 120 mg/dL 74-106 [facility] Comment on above: Fasting Glucose resu lt from 100 to 125 mg/dL suggests IMPAIRED HOMEOSTASIS per A.D.A. criteria. Potassium [Moles/Vol] 3.7 mmol/L 3.5-5.1 [facility] Protein [Mass/Vol] 7.4 g/dL 6.4-8.2 [facility] Sodium [Moles/Vol] 141 mmol/L 136-145 [facility] Laboratory - Chemistry and C hemistry - challengeon 06-22-2023 Albumin/Globulin [Mass ratio] 1.1 {ratio} 0.9-2.4 [facility] ALP [Catalytic activity/Vol] 104 U/L 45-117 [facility] ALT [Catalytic activity/Vol] 32 U/L 16-61 [facility] CO2 [Moles/Vol] 26.0 mmol/L 21.0-32.0 [facility] Globulin (S) [Mass/Vol] 3.5 g/dL 2.2-4.2 [facility] Urea nitrogen/Creatinine [Mass ratio] 18.7 mg/mg 10-20 [facility] No Panel Informationon 06-21 C-Reactive Protein Extended Range 7.14 mg/L 0.0-3.0 [facility] Comment on above: C-Reactive Protein ( CRP) provides useful information for thediagnosis, therapy and monitoring of inflammatory processesand associated diseases. For the evaluation of Relative Riskfor Cardiovascular Disease, a High Sensitivity CRP (HSCRP)should be ordered. Estimated GFR (MDRD) Amer 110 mL/min >60 [facility] Comment on above: GFR Calc Estimated GFR (MDRD) Non-Af Amer 91 mL/min >60 [facility] Comment on above: Non- GFR Calc Serum or plasma calcium es urement (mass/volume)on 06-22-2023 Calcium [Mass/Vol] 9.1 mg/dL 8.5-10.1 [facility] Serum or plasma creatinine m easurement (mass/volume)on 06-22-2023 Creatinine [Mass/Vol] 0.96 mg/dL 0.70-1.30 [facility] Comment on above: The validity of the calculated GFR & GFRAA in patients over 70 years has not been determined. Clinical correlation is essential. Serum or plasma urea nitroge n measurement (mass/volume)on 06-22-2023 Urea nitrogen [Mass/Vol] 18 mg/dL 7-18 [facility] Thin prep Papanicolaou smear with manual screeningon 06-22-2023 Thin prep Papanicolaou smear with manual screening 3.9 g/dL 3.2-5.0 [facility] Thin prep Papanicolaou smear with manual screening 15 U/L 15-37 [facility] Thin prep Papanicolaou smear with manual screening 7 5-15 [facility] Laboratory - Microbiology an d Antimicrobial susceptibilityOrdered By: Jia Jackson on 06-03-2023 SARS-CoV-2 (COVID-19) RNA TOSHA+probe Ql (Unsp spec) Influenzae A [facility] SARS-CoV-2 (COVID-19) RNA TOSHA+probe Ql (Unsp spec) Influenzae A [facility] Clostridium difficile detect ion by polymerase chain reactionOrdered By: Joaquina Rudolph on 12-05-2022 C. difficile DNA TOSHA+probe Ql (Unsp spec) [facility] No Panel InformationOrdered By: Joaquina Rudolph on 11-03-2022 Stool Calprotectin 327 ug/g 0-120 [facility] Comment on above: Concentration Interp retation Follow-Up< 5 - 50 ug/g Normal None>50 -120 ug/g Borderline Re-evaluate in 4-6 weeks >120 ug/g Abnormal Repeat as clinically indicatedPerformed at: - [facility] [id number] Director: Viridiana Schroeder MD, Phone: [phone] Hepatitis B Surface Antigen Non-Reactive Nonreactive [facility] Qualitative QuantiFERON-TB g old in tube testOrdered By: Joaquina Rudolph on 11-03-2022 M. tuberculosis tuberculin stim IFN-g Ql (Bld) 0.07 IU/mL . [facility] Thin prep Papanicolaou smear with manual screeningOrdered By: Joaquina Rudolph on 11-03-2022 Thin prep Papanicolaou smear with manual screening Comment . [facility] Comment on above: QuantiFERON-TB Gold Plus [...] smear with manual screening 0.06 IU/mL . [facility] Thin prep Papanicolaou smear with manual screening 0.04 IU/mL . [facility] Thin prep Papanicolaou smear with manual screening > 10.00 IU/mL . [facility] Thin prep Papanicolaou smear with manual screening Negative Negative [facility] Comment on above: No response to [...] the productionof interferon gamma. Chemiluminescence immunoassaymethodologyPerformed at: [facility] [place] [id number] Director: Gabino Randall PhD, Phone: [phone] Serum or plasma C reactive p rotein measurement (mass/volume)Ordered By: Joaquina Rudolph on 10-13-2022 CRP [Mass/Vol] 5.20 mg/L 0.0-3.0 [facility] Comment on above: C-Reactive Protein ( CRP) provides useful information for thediagnosis, therapy and monitoring of inflammatory processesand associated diseases. For the evaluation of Relative Riskfor Cardiovascular Disease, a High Sensitivity CRP (HSCRP)should be ordered. Absolute lymphocyte countOrd ered By: Dr. Mallory on 07-19-2022 Lymphocytes Auto (Unsp spec) [#/Vol] 1.68 10*3/uL 0.83-4.51 [facility] Basophil percentageOrdered B y: Dr. Mallory on 07-19-2022 Basophil percentage 0-5 SEEN /hpf 0-5 [facility] Basophils/100 WBC (Bld) 0.1 % 0-1 [facility] Chloride [Moles/Vol] 109 mmol/L 98-107 [facility] Eosinophils/100 WBC (Bld) 1.3 % 0-5 [facility] Glucose [Mass/Vol] 143 mg/dL 74-106 [facility] Comment on above: Fasting Glucose resu lt greater than or equal to 126 mg/dL suggests DIABETES MELLITUS per A.D.A. criteria. Neutrophils (Bld) [#/Vol] 6.9 10*3/uL 2.0-7.7 [facility] Neutrophils/100 WBC (Bld) 72.8 % 47-70 [facility] Potassium [Moles/Vol] 3.7 mmol/L 3.5-5.1 [facility] Sodium [Moles/Vol] 138 mmol/L 136-145 [facility] WBC (Bld) [#/Vol] 9.5 10*3/uL 4.4-11.0 [facility] Bilirubin Test strip Ql (U)O rdered By: Dr. Mallory on 07-19-2022 Bilirubin Ql (U) 1 mg/dL Negative [facility] Comment on above: COLOR OF URINE MAY A FFECT DIPSTICK RESULTS. Blood erythrocytes count (nu mber/volume)Ordered By: Dr. Mallory on 07-19-2022 RBC (Bld) [#/Vol] 5.60 10*6/uL 4.6-6.2 [facility] Blood hemoglobin measurement (mass/volume)Ordered By: Dr. Mallory on 07-19-2022 Hemoglobin (Bld) [Mass/Vol] 15.8 g/dL 13.0-16.5 [facility] Blood lymphocytes/100 leukoc ytesOrdered By: Dr. Mallory on 07-19-2022 Lymphocytes/100 WBC (Bld) 17.6 % 19-41 [facility] Blood monocytes/100 leukocyt esOrdered By: Dr. Mallory on 07-19-2022 Monocytes/100 WBC (Bld) 7.9 % 0-10 [facility] Blood platelet mean volumeOr dered By: Dr. Mallory on 07-19-2022 Platelet mean volume (Bld) [Entitic vol] 10.1 fL 6.2-12.0 [facility] Determination of erythrocyte mean corpuscular volume (MCV)Ordered By: Dr. Mallory on 07-19-2022 MCV (RBC) [Entitic vol] 82.7 fL 80-94 [facility] Hematocrit Auto (Bld) [Volum e fraction]Ordered By: Dr. Mallory on 07-19-2022 Hematocrit (Bld) [Volume fraction] 46.3 % 40-54 [facility] Ketones Test strip Ql (U)Ord ered By: Dr. Mallory on 07-19-2022 Ketones Ql (U) 5 mg/dl Negative [facility] Laboratory - Chemistry and C hemistry - challengeOrdered By: Dr. Mallory on 07-19-2022 CO2 [Moles/Vol] 23.0 mmol/L 21.0-32.0 [facility] Urea nitrogen/Creatinine [Mass ratio] 16.5 mg/mg 10-20 [facility] Laboratory - Hematology and Cell countsOrdered By: Dr. Mallory on 07-19-2022 Erythrocyte distribution width (RBC) [Entitic vol] 38.5 fL 35.1-43.9 [facility] Erythrocyte distribution width (RBC) [Ratio] 12.8 % 11.6-14.6 [facility] Immature granulocytes/100 WBC (Bld) 0.300 % 0.0-0.9 [facility] Comment on above: IG% - Immature Granu locytes (promyelocytes, myelocytes and metamyelocytes) > 1% indicates that a LEFT SHIFT is Present. MCH (RBC) [Entitic mass] 28.2 pg 27.0-32.0 [facility] Nucleated RBC/100 WBC (Bld) [Ratio] 0 % 0-5 [facility] MCHC Auto (RBC) [Mass/Vol]Or dered By: Dr. Mallory on 07-19-2022 MCHC (RBC) [Mass/Vol] 34.1 g/dL 32-36 [facility] Mucus LM Ql (Urine sed)Order ed By: Dr. Mallory on 07-19-2022 Mucus Ql (Urine sed) 0 SEEN /hpf [facility] Nitrite Test strip Ql (U)Ord ered By: Dr. Mallory on 07-19-2022 Nitrite Ql (U) Negative Negative [facility] No Panel InformationOrdered By: Dr. Mallory on 07-19-2022 Estimated Creatinine Clearance Calc 88.16 ml/min [facility] Estimated GFR (MDRD) Amer 90 mL/min >60 [facility] Comment on above: GFR Calc Estimated GFR (MDRD) Non-Af Amer 75 mL/min >60 [facility] Comment on above: Non- GFR Calc Platelets bldOrdered By: Dr. Mallory on 07-19-2022 Platelets (Bld) [#/Vol] 251 10*3/uL 150-450 [facility] Protein Test strip Ql (U)Ord ered By: Dr. Mallory on 07-19-2022 Protein Ql (U) 100 mg/dl Negative [facility] Serum or plasma calcium es urement (mass/volume)Ordered By: Dr. Mallory on 07-19-2022 Calcium [Mass/Vol] 9.4 mg/dL 8.5-10.1 [facility] Serum or plasma creatinine m easurement (mass/volume)Ordered By: Dr. Mallory on 07-19-2022 Creatinine [Mass/Vol] 1.15 mg/dL 0.70-1.30 [facility] Comment on above: The validity of the calculated GFR & GFRAA in patients over 70 years has not been determined. Clinical correlation is essential. Serum or plasma urea nitroge n measurement (mass/volume)Ordered By: Dr. Mallory on 07-19-2022 Urea nitrogen [Mass/Vol] 19 mg/dL 7-18 [facility] Squamous epithelial cells de tection in urine sediment by light microscopyOrdered By: Dr. Mallory on 07-19-2022 Epithelial cells.squamous LM Ql (Urine sed) 0-5 SEEN /hpf 0-5 [facility] Thin prep Papanicolaou smear with manual screeningOrdered By: Dr. Mallory on 07-19-2022 Thin prep Papanicolaou smear with manual screening 6 5-15 [facility] Urine blood detectionOrdered By: Dr. Mallory on 07-19-2022 RBC Ql (U) 250 /ul Negative [facility] RBC Ql (U) > 100 SEEN /hpf 0-5 [facility] Urine clarityOrdered By: Dr. Mallory on 07-19-2022 Clarity (U) Turbid Clear [facility] Urine color determinationOrd ered By: Dr. Mallory on 07-19-2022 Color (U) Brown Yellow [facility] Urine glucose detectionOrder ed By: Dr. Mallory on 07-19-2022 Glucose Ql (U) Normal mg/dl Normal [facility] Urine leukocyte esterase det ection by dipstickOrdered By: Dr. Mallory on 07-19-2022 Leukocyte esterase Test strip Ql (U) 25 /ul Negative [facility] Urine pHOrdered By: Dr. Anne Marie austin on 07-19-2022 pH (U) 5.0 [pH] 5.0 - 8.0 [facility] Urine sediment bacteria coun t by microscopy (number/high power field)Ordered By: Dr. Mallory on 07-19-2022 Bacteria LM.HPF (Urine sed) [#/Area] 2 /[HPF] None Seen [facility] Urine specific gravity measu rementOrdered By: Dr. Mallory on 07-19-2022 Specific gravity (U) [Rel density] 1.025 1.002-1.030 [facility] Urobilinogen Auto test strip Ql (U)Ordered By: Dr. Mallory on 07-19-2022 Urobilinogen Ql (U) Normal mg/dl Normal [facility] No Panel InformationOrdered By: Dr. Rudolph on 04-15-2022 Stool Calprotectin 168 ug/g 0-120 [facility] Comment on above: Concentration Interp retation Follow-Up<16 - 50 ug/g Normal None>50 -120 ug/g Borderline Re-evaluate in 4-6 weeks >120 ug/g Abnormal Repeat as clinically indicatedPerformed at: - [facility] [address] [id number] Director: Viridiana Schroeder MD, Phone: [phone] Absolute lymphocyte countOrd ered By: Dr. Rudolph on 04-14-2022 Lymphocytes Auto (Unsp spec) [#/Vol] 1.47 10*3/uL 0.83-4.51 [facility] Basophil percentageOrdered B y: Dr. Rudolph on 04-14-2022 Basophils/100 WBC (Bld) 0.1 % 0-1 [facility] Bilirubin [Mass/Vol] 0.50 mg/dL 0.20-1.00 [facility] Comment on above: For patients on eltr ombopag therapy, use of Dimension [place] TBIL is not recommended. Eosinophils/100 WBC (Bld) 3.0 % 0-5 [facility] Neutrophils (Bld) [#/Vol] 4.3 10*3/uL 2.0-7.7 [facility] Neutrophils/100 WBC (Bld) 64.5 % 47-70 [facility] Protein [Mass/Vol] 7.2 g/dL 6.4-8.2 [facility] WBC (Bld) [#/Vol] 6.7 10*3/uL 4.4-11.0 [facility] Blood erythrocytes count (nu mber/volume)Ordered By: Dr. Rudolph on 04-14-2022 RBC (Bld) [#/Vol] 5.34 10*6/uL 4.6-6.2 [facility] Blood hemoglobin measurement (mass/volume)Ordered By: Dr. Rudolph on 04-14-2022 Hemoglobin (Bld) [Mass/Vol] 15.3 g/dL 13.0-16.5 [facility] Blood lymphocytes/100 leukoc ytesOrdered By: Dr. Rudolph on 04-14-2022 Lymphocytes/100 WBC (Bld) 22.0 % 19-41 [facility] Blood monocytes/100 leukocyt esOrdered By: Dr. Rudolph on 04-14-2022 Monocytes/100 WBC (Bld) 10.0 % 0-10 [facility] Blood platelet mean volumeOr dered By: Dr. Rudolph on 04-14-2022 Platelet mean volume (Bld) [Entitic vol] 10.3 fL 6.2-12.0 [facility] Determination of erythrocyte mean corpuscular volume (MCV)Ordered By: Dr. Rudolph on 04-14-2022 MCV (RBC) [Entitic vol] 84.1 fL 80-94 [facility] Direct bilirubinOrdered By: Dr. Rudolph on 04-14-2022 Bilirubin.direct [Mass/Vol] 0.14 mg/dL 0.00-0.30 [facility] Hematocrit Auto (Bld) [Volum e fraction]Ordered By: Dr. Rudolph on 04-14-2022 Hematocrit (Bld) [Volume fraction] 44.9 % 40-54 [facility] Laboratory - Chemistry and C hemistry - challengeOrdered By: Dr. Rudolph on 04-14-2022 ALP [Catalytic activity/Vol] 109 U/L 45-117 [facility] ALT [Catalytic activity/Vol] 24 U/L 16-61 [facility] Globulin (S) [Mass/Vol] 3.4 g/dL 2.2-4.2 [facility] Laboratory - Hematology and Cell countsOrdered By: Dr. Rudolph on 04-14-2022 Erythrocyte distribution width (RBC) [Entitic vol] 38.5 fL 35.1-43.9 [facility] Erythrocyte distribution width (RBC) [Ratio] 12.7 % 11.6-14.6 [facility] Immature granulocytes/100 WBC (Bld) 0.400 % 0.0-0.9 [facility] Comment on above: IG% - Immature Granu locytes (promyelocytes, myelocytes and metamyelocytes) > 1% indicates that a LEFT SHIFT is Present. MCH (RBC) [Entitic mass] 28.7 pg 27.0-32.0 [facility] Nucleated RBC/100 WBC (Bld) [Ratio] 0 % 0-5 [facility] MCHC Auto (RBC) [Mass/Vol]Or dered By: Dr. Rudolph on 04-14-2022 MCHC (RBC) [Mass/Vol] 34.1 g/dL 32-36 [facility] No Panel InformationOrdered By: Dr. Rudolph on 04-14-2022 Hepatitis Be Antigen Negative Negative [facility] Comment on above: Performed at: [address] Director: Gabino Randall PhD, Phone: [phone] Platelets bldOrdered By: Dr. Rudolph on 04-14-2022 Platelets (Bld) [#/Vol] 234 10*3/uL 150-450 [facility] Serum or plasma C reactive p rotein measurement (mass/volume)Ordered By: Dr. Rudolph on 04-14-2022 CRP [Mass/Vol] 11.70 mg/L 0.0-3.0 [facility] Comment on above: C-Reactive Protein ( CRP) provides useful information for thediagnosis, therapy and monitoring of inflammatory processesand associated diseases. For the evaluation of Relative Riskfor Cardiovascular Disease, a High Sensitivity CRP (HSCRP)should be ordered. Serum or plasma albumin es urement (mass/volume)Ordered By: Dr. Rudolph on 04-14-2022 Albumin [Mass/Vol] 3.8 g/dL 3.2-5.0 [facility] Thin prep Papanicolaou smear with manual screeningOrdered By: Dr. Rudolph on 04-14-2022 Thin prep Papanicolaou smear with manual screening 14 U/L 15-37 [facility] ANSER VDZon 12-03-2021 AB TO VEDOLIZUMAB[ATV] CONC. <1.6 Normal <1.6 [facility] Comment on above: Result Comment: [employer] testing services provide important information to aid in the diagnosis or prognosis of certain diseases. Test results should be used in conjunction with other clinical and diagnostic findings to make a diagnosis and/or assess prognosis. The test was developed and its performance characteristics determined by [facility]. It has not been cleared or approved by the U.S. FDA. The test is used for clinical purposes and should not be regarded as investigational or for research. [facility] is CAP accredited and certified under CLIA as qualified to perform high complexity clinical laboratory testing. This test may be covered by one or more US pending or issued patents- see [employer]Leadformance for details. . For full report see separate report from [facility]. Performed By: #### V DZPR #### [facility] [address] [place] [address] ANSER VDZ:RESULTS SEE BELOW Normal [facility] Comment on above: Result Comment: DETE CTABLE SERUM VEDOLIZUMAB UNDETECTABLE ANTIBODIES TO VEDOLIZUMAB Performed By: #### V DZPR #### [facility] [address] [place] [address] VEDOLIZUMAB[VDZ] CONC. 9.2 ug/mL Abnormal <1.6 [facility] Comment on above: Performed By: #### V DZPR #### [facility] [address] [place] [address] CALPROTECTIN,FECALon 022 CALPROTECTIN,FECAL 155 ug/g High <=49 [facility] Comment on above: Result Comment: REFE RENCE INTERVAL: Calprotectin, Fecal by Immunoassay Less than 50 ug/g.........Normal 50-120 ug/g...............Borderline elevated, test should be re-evaluated in 4-6 weeks. 121 ug/g or greater.......Elevated Performed By: [facility] [address] [place] [address] Turret Lathe Operator: Aneesh Landers MD, PhD Performed By: #### C ALPR #### [facility] [address] [place] [address] Anser VDZon 11-30-2021 Anser VDZ <1.6 <1.6 [facility]-Gastroen terology-Ad min Wearn B [facility] Work Phone: Comment on above: [facility] testing s ervices provide important information to aid in the diagnosis or prognosis of certain diseases. Test results should be used in conjunction with other clinical and diagnostic findings to make a diagnosis and/or assess prognosis. The test was developed and its performance characteristics determined by [facility]. It has not been cleared or approved by the U.S. FDA. The test is used for clinical purposes and should not be regarded as investigational or for research. [facility] is CAP accredited and certified under CLIA as qualified to perform high complexity clinical laboratory testing. This test may be covered by one or more US pending or issued patents- see [employer] for details..For full report see separate report from [facility]. Anser VDZ 9.2 ug/mL Abnormal <1.6 [facility]astro[facility] terology-Ad min Wearn B I Work Phone: Anser VDZ SEE BELOW [facility]-Gastroen terology-Ad min Wearn B I Work Phone: Comment on above: DETECTABLE SERUM TALI OLIZUMAB UNDETECTABLE ANTIBODIES TO VEDOLIZUMAB C Reactive Protein, Serumon 11-30-2021 CRP [Mass/Vol] 5.95 mg/dL Abnormal [facility]-Gastroe n terology-Ad min Wearn B [facility] Work Phone: Comment on above: REF VALUE< 1.00 C-REACTIVE PROTEINon 2 022 C-REACTIVE PROTEIN 5.95 mg/dL Abnormal [facility] Comment on above: Result Comment: REF VALUE < 1.00 Performed By: #### C RP #### [facility] [address] [place] [address] CBC AND DIFFERENTIALon 11-30 % AUTOMATED IMMATURE GRAN 0.4 % Normal 0.0 - 0.9 [facility] Comment on above: Result Comment: Aislinn ture Granulocyte Count (IG) includes promyelocytes, myelocytes and metamyelocytes but does not include bands. Percent differential counts (%) should be interpreted in the context of the absolute cell counts (cells/L). Performed By: #### C BCDF #### [facility] [address] [place] [address] Basophils (Bld) [#/Vol] 0.02 10*3/uL Normal 0.00 - 0.10 [facility] Comment on above: Performed By: #### C BCDF #### [facility] [address] [place] [address] Basophils/100 WBC (Bld) 0.2 % Normal 0.0 - 2.0 [facility] Comment on above: Performed By: #### C BCDF #### [facility] [address] [place] [address] Eosinophils (Bld) [#/Vol] 0.06 10*3/uL Normal 0.00 - 0.70 [facility] Comment on above: Performed By: #### C BCDF #### [facility] [address] [place] [address] Eosinophils/100 WBC (Bld) 0.5 % Normal 0.0 - 6.0 [facility] Comment on above: Performed By: #### C BCDF #### [facility] [address] [place] [address] Erythrocyte distribution width (RBC) [Ratio] 13.2 % Normal 11.5 - 14.5 [facility] Comment on above: Performed By: #### C BCDF #### [facility] [address] [place] [address] Hematocrit (Bld) [Volume fraction] 48.1 % Normal 41.0 - 52.0 [facility] Comment on above: Performed By: #### C BCDF #### [facility] [address] [place] [address] Hemoglobin (Bld) [Mass/Vol] 16.0 g/dL Normal 13.5 - 17.5 [facility] Comment on above: Performed By: #### C BCDF #### [facility] [address] [place] [address] Lymphocytes (Bld) [#/Vol] 1.10 10*3/uL Low 1.20 - 4.80 [facility] Comment on above: Performed By: #### C BCDF #### [facility] [address] [place] [address] Lymphocytes/100 WBC (Bld) 9.8 % Normal 13.0 - 44.0 [facility] Comment on above: Performed By: #### C BCDF #### [facility] [address] [place] [address] MCHC (RBC) [Mass/Vol] 33.3 g/dL Normal 32.0 - 36.0 [facility] Comment on above: Performed By: #### C BCDF #### [facility] [address] [place] [address] MCV (RBC) [Entitic vol] 86 fL Normal 80 - 100 [facility] Comment on above: Performed By: #### C BCDF #### [facility] [address] [place] [address] Monocytes (Bld) [#/Vol] 0.80 10*3/uL Normal 0.10 - 1.00 [facility] Comment on above: Performed By: #### C BCDF #### [facility] [address] [place] [address] Monocytes/100 WBC (Bld) 7.1 % Normal 2.0 - 10.0 [facility] Comment on above: Performed By: #### C BCDF #### [facility] [address] [place] [address] Neutrophils (Bld) [#/Vol] 9.21 10*3/uL High 1.20 - 7.70 [facility] Comment on above: Performed By: #### C BCDF #### [facility] [address] [place] [address] Neutrophils/100 WBC (Bld) 82.0 % Normal 40.0 - 80.0 [facility] Comment on above: Performed By: #### C BCDF #### [facility] [address] [place] [address] NUCLEATED RBC 0.0 /100 WBC Normal 0.0-0.0 [facility] Comment on above: Performed By: #### C BCDF #### [facility] [address] [place] [address] Platelets (Bld) [#/Vol] 251 10*3/uL Normal 150 - 450 [facility] Comment on above: Performed By: #### C BCDF #### [facility] [address] [place] [address] RBC 5.59 x10E12/L Normal 4.50 - 5.90 [facility] Comment on above: Performed By: #### C BCDF #### [facility] [address] [place] [address] WBC (Bld) [#/Vol] 11.2 10*3/uL Normal 4.4 - 11.3 [facility] Comment on above: Performed By: #### C BCDF #### [facility] [address] [place] [address] COMPREHENSIVE PANELon 2021 Albumin [Mass/Vol] 4.7 g/dL Normal 3.4 - 5.0 [facility] Comment on above: Performed By: #### C MP #### [facility] [address] [place] [address] ALP [Catalytic activity/Vol] 109 U/L Normal 33 - 120 [facility] Comment on above: Performed By: #### C MP #### [facility] [address] [place] [address] ALT [Catalytic activity/Vol] 17 U/L Normal 10 - 52 [facility] Comment on above: Result Comment: Zainab ents treated with Sulfasalazine may generate falsely decreased results for ALT. Performed By: #### C MP #### [facility] [address] [place] [address] Anion gap [Moles/Vol] 13 mmol/L Normal 10 - 20 [facility] Comment on above: Performed By: #### C MP #### [facility] [address] [place] [address] AST [Catalytic activity/Vol] 15 U/L Normal 9 - 39 [facility] Comment on above: Performed By: #### C MP #### [facility] [address] [place] [address] Bilirubin [Mass/Vol] 0.6 mg/dL Normal 0.0 - 1.2 [facility] Comment on above: Performed By: #### C MP #### [facility] [address] [place] [address] Calcium [Mass/Vol] 9.5 mg/dL Normal 8.6 - 10.6 [facility] Comment on above: Performed By: #### C MP #### [facility] [address] [place] [address] Chloride [Moles/Vol] 104 mmol/L Normal 98 - 107 [facility] Comment on above: Performed By: #### C MP #### [facility] [address] [place] [address] Creatinine [Mass/Vol] 0.94 mg/dL Normal 0.50 - 1.30 [facility] Comment on above: Performed By: #### C MP #### [facility] [address] [place] [address] eGFR MALE >90 Normal >90 [facility] Comment on above: Result Comment: CALC ULATIONS OF ESTIMATED GFR ARE PERFORMED USING THE 2020 CKD-EPI STUDY REFIT EQUATION WITHOUT THE RACE VARIABLE FOR THE IDMS-TRACEABLE CREATININE METHODS. https://jasn.asnjournals.org/content//ASN.73509 47049 Performed By: #### C MP #### [facility] [address] [place] [address] Glucose [Mass/Vol] 97 mg/dL Normal 74 - 99 [facility] Comment on above: Performed By: #### C MP #### [facility] [address] [place] [address] HCO3 (Bld) [Moles/Vol] 28 mmol/L Normal 21 - 32 [facility] Comment on above: Performed By: #### C MP #### [facility] [address] [place] [address] Potassium [Moles/Vol] 4.4 mmol/L Normal 3.5 - 5.3 [facility] Comment on above: Performed By: #### C MP #### [facility] [address] [place] [address] Protein [Mass/Vol] 7.4 g/dL Normal 6.4 - 8.2 [facility] Comment on above: Performed By: #### C MP #### [facility] [address] [place] [address] Sodium [Moles/Vol] 141 mmol/L Normal 136 - 145 [facility] Comment on above: Performed By: #### C MP #### [facility] [address] [place] [address] Urea nitrogen [Mass/Vol] 15 mg/dL Normal 6 - 23 [facility] Comment on above: Performed By: #### C MP #### [facility] [address] [place] [address] Complete Blood Count + Diffe rentialon 11-30-2021 [...] 1/2 AG/AB SCREEN Non-Reactive Normal NONREACTIVE [facility] Comment on above: Result Comment: HIV [...] load). Performed By: #### H IV #### [facility] [address] [place] [address] Lab Specimen Source Normal [facility] Comment on above: Performed By: #### H IV #### [facility] [address] [place] [address] HIV 1+2 Ab Qn (S) Non-Reactive See Below MG-Ga ti terology-Ad luke Mendoza [facility] Work Phone: Comment on above: SOURCE: Reference [...] disease; ANNA = N; Verified Transmission to [id number]; Last Updated By: Brenda Goss; [...] Screening; Status:Hold For - Scheduling; Requested for:30Nov2021; Perform:[facility]; Due:28Feb2022;Ordered; For:Crohn's disease; Ordered By:Colin Choi; [...] stool fecal calprotectin 5) schedule colonoscopy at [facility] 6) try starting a fiber supplement, [...] current therapy (more content not included)... Normal [facility] - Chemistry and C hemistry - challengeon 11-30-2021 Calprotectin (Stl) [Mass/Mass] 155 ug/g above high threshold <=49 [facility]-Gastroen terology-Ad min Wearn B [facility] Work Phone: Comment on above: REFERENCE INTERVAL: Calprotectin, Fecal by Immunoassay Less than 50 ug/g.........Normal 50-120 ug/g...............Borderline elevated, test should be re-evaluated in 4-6 weeks. 121 ug/g or greater.......ElevatedPerformed By: [employer] [place] [address] Director: Aneesh Landers MD, PhD Albumin BCP [...] RACE VARIABLE FOR THE IDMS-TRACEABLE CREATININE METHODS.https://jasn.asnjournals.org/content//A SN.6092721734 Tobacco Screening.on 022 Adult depression screening assessment [...] height 177.8 cm [employer] Work Phone: [facility] [employer] 07-05-2023 08:02-0400 Body mass index (BMI) [Ratio] 32.14 kg/m2 [employer] Work Phone: [facility] [employer] 07-05-2023 08:02-0400 Body temperature 97 [degF] [employer] Work Phone: [facility] [employer] 07-05-2023 08:02-0400 Body weight 101.61 kg [employer] Work Phone: [facility] [employer] 07-05-2023 08:02-0400 Diastolic blood pressure 78 mm[Hg] [employer] Work Phone: [facility] [employer] 07-05-2023 08:02-0400 Heart rate 87 /min [employer] Work Phone: [facility] [employer] 07-05-2023 08:02-0400 SaO2% (BldA) [Mass fraction] 97 % [employer] Work Phone: [facility] [employer] 07-05-2023 08:02-0400 Systolic blood pressure 128 mm[Hg] [employer] Work Phone: [facility] [employer] 06-03-2023 21:34-0500 Body temperature 98.8 [degF] [facility] 06-03-2023 21:34-0500 Diastolic blood pressure 90 mm[Hg] [facility] 06-03-2023 21:34-0500 Heart rate 80 /min [facility] 06-03-2023 21:34-0500 Respiratory rate 18 /min [facility] 06-03-2023 21:34-0500 SaO2% (BldA) [Mass fraction] 97 % [facility] 06-03-2023 21:34-0500 Systolic blood pressure 133 mm[Hg] [facility] 06-03-2023 19:38-0500 Body height 177.8 cm [facility] 06-03-2023 19:38-0500 Body mass index (BMI) [Ratio] 33.2 kg/m2 [facility] 06-03-2023 19:38-0500 Body weight 104.97 kg [facility] 07-19-2022 07:37-0400 Diastolic blood pressure 88 mm[Hg] [facility] 07-19-2022 07:37-0400 Heart rate 62 /min [facility] 07-19-2022 07:37-0400 Respiratory rate 15 /min [facility] 07-19-2022 07:37-0400 SaO2% (BldA) [Mass fraction] 98 % [facility] 07-19-2022 07:37-0400 Systolic blood pressure 129 mm[Hg] [facility] 07-19-2022 05:32-0400 Body height 177.8 cm [facility] 07-19-2022 05:32-0400 Body mass index (BMI) [Ratio] 32.5 kg/m2 [facility] 07-19-2022 05:32-0400 Body temperature 97.6 [degF] [facility] 07-19-2022 05:32-0400 Body weight 102.9 kg [facility] 11-30-2021 10:33-0400 Body height 173.99 cm Colin Choi MD Work Phone: [facility] [email or web address] Work Phone: 11-30-2021 10:33-0400 Body mass [...] 1 Colin Choi MD Work Phone: -[facility] Work Phone: Comment on above: [employer] Encounters Encounter Date Encounter Type Care Provider Facility Start: 10-28-2024 End: 10-28-[address] Soumya Aguilar DO Work Phone: -[facility] [place] Start: 10-28-2024 End: 10-28-[address] Joaquina Rudolph MD -[facility] [place] Work Phone: Start: 10-28-2024 End: 10-28-2024 ambulatory Joaquina Rudolph Facility:[facility] Start: 02-09-2024 End: 02-09-2024 Emergency department patient visit Rajinder Fitzgerald Facility:[facility] Start: 07-27-2023 End: 07-27-2023 ambulatory [facility] Work Phone: Start: 07-27-2023 End: 07-27-2023 Patient encounter procedure [facility]-Sleep Lab Work Phone: Start: 07-12-2023 End: 07-12-2023 ambulatory [facility] Work Phone: Start: 07-12-2023 End: 07-12-2023 Patient encounter procedure [facility] Work Phone: Start: 07-05-2023 End: 07-05-2023 ambulatory SUREKHA CASTANO [facility] Start: 07-05-2023 End: 07-05-2023 Office outpatient new 60 minutes Surekha Castano MD Work Phone: [facility] Infectious Disease Comment on above: Histoplasmosis, unsp ecified (Primary Dx); Crohn's disease of both small and large intestine with other complication (HCC); 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) Start: 06-23-2023 Telephone encounter Bronwyn rico MD Work Phone: [facility] Infectious Disease Comment on above: Appointment Request Start: 06-23-2023 End: 06-23-2023 ambulatory [facility] Work Phone: Start: 06-23-2023 End: 06-23-2023 [facility] Work Phone: Start: 06-22-2023 End: 06-22-2023 ambulatory [facility] Work Phone: Start: 06-22-2023 End: 06-22-2023 Patient encounter procedure [facility] Work Phone: Start: 06-03-2023 End: 06-03-2023 Emergency department patient visit [facility]Emergency Department Work Phone: Start: 12-05-2022 End: 12-05-2022 ambulatory [facility] Work Phone: Start: 12-05-2022 End: 12-05-2022 Patient encounter procedure [facility] Work Phone: Start: 11-29-2022 End: 11-29-2022 ambulatory [facility] Work Phone: Start: 11-29-2022 End: 11-29-2022 [facility] Start: 11-03-2022 End: 11-03-2022 [facility] Work Phone: Start: 10-13-2022 End: 10-13-2022 ambulatory [facility] Work Phone: Start: 10-13-2022 End: 10-13-2022 [facility] Work Phone: Start: 07-28-2022 End: 07-28-2022 ambulatory [facility] Work Phone: Start: 07-28-2022 End: 07-28-2022 Patient encounter procedure [facility]Radiology, [facility] Start: 07-19-2022 End: 07-19-2022 Emergency department patient visit [facility]Emergency [facility] Start: 04-15-2022 End: 04-15-2022 ambulatory [facility] Work Phone: Start: 04-15-2022 End: 04-15-2022 Patient encounter procedure [facility] Start: 04-14-2022 End: 04-14-2022 ambulatory [facility] Work Phone: Start: 04-14-2022 End: 04-14-2022 Patient encounter procedure [facility] Start: 12-17-2021 End: 12-17-2021 ambulatory [facility] Work Phone: Start: 12-17-2021 End: 12-17-2021 Patient encounter procedure [facility] Start: 12-08-2021 Chart Update Colin Choi MD Work Phone: [facility] Work Phone: Start: 12-01-2021 Chart Update Colin Choi MD Work Phone: QG[facility]reyabver[facility] Work Phone: Start: 11-30-2021 Current tobacco non- user cad cap copd pv dm Colin Choi MD Work Phone: [facility] Work Phone: Start: 01-04-2017 Ambulatory Joaquina Rudolph [facility] Start: 09-27-2016 End: 09-28-2016 Ambulatory JOAQUINA RUDOLPH [facility] Start: 03-22-2016 End: 03-24-2016 Evaluation and management of inpatient [facility] Facility:[facility] Procedures Date Procedure Procedure Detail Performing [...] the productionof interferon gamma. Chemiluminescence immunoassaymethodologyPerformed at: [facility] [address] [id number] Director: Gabino Randall PhD, Phone: [phone] Start: 07-05-2023 C-reactive protein Surekha Castano MD [...] or older (1 - 1-dose 60+ series) [facility] Start: 2032 Zoster Vaccines (1 of 2) Zoster Vaccines (1 of 2) [facility] Start: 07-01-2024 End: 07-01-2024 Patient encounter procedure 07/01/2024 8:30 AM EDT Office Visit [facility] Infectious Disease [address] [place] [address] Surekha Castano MD [address] [place] [address] [facility] Infectious Disease Start: 07-05-2023 End: 07-05-2023 Patient encounter procedure 07/05/2023 8:00 AM EDT Office Visit [facility] Infectious Disease [address] [place] [address] Surekha Castano MD [address] [id number] [facility] Infectious Disease Start: 06-03-2023 [facility] Start: 12-09-2022 COVID-19 Vaccine ( season) COVID-19 Vaccine ( season) [facility] Start: 12-09-2022 Influenza vaccination Influenza Vaccine (#1) [facility] Start: 12-05-2022 Procedure [facility] Start: 12-17-2021 Procedure [facility] Work Phone: Start: 09-10-2020 COVID-19 Vaccine (3 - Moderna risk series) COVID-19 Vaccine (3 - Moderna risk series) [facility] Start: 05-02-2002 DTaP/Tdap/Td Vaccines (6 - Tdap) DTaP/Tdap/Td Vaccines (6 - Tdap) [facility] Start: 2001 Hepatitis A Vaccines (1 of 2 - Risk 2-dose series) Hepatitis A Vaccines (1 of 2 - Risk 2-dose series) [facility] Start: 2001 Hepatitis B Vaccines (1 of 3 - 19+ 3-dose series) Hepatitis B Vaccines (1 of 3 - 19+ 3-dose series) [facility] Start: 2001 Zoster Vaccines (1 of 2) Zoster Vaccines (1 of 2) [facility] Start: 2000 Diabetes mellitus screening Diabetes Screening [facility] Start: 2000 Hepatitis C screening Hepatitis C Screening [facility] Start: 1995 Varicella vaccination Varicella Vaccines (1 of 2 - 13+ 2-dose series) [facility] Start: 1994 Depression Screening Depression Screening [facility] Start: 1988 Pneumococcal Vaccine: Pediatrics (0 to 5 Years) and At-Risk Patients (6 to 64 Years) (1 of 2 - PCV) Pneumococcal Vaccine: Pediatrics (0 to 5 Years) and At-Risk Patients (6 to 64 Years) (1 of 2 - PCV) [facility] Start: 1982 HIV screening HIV Screening [facility] Start: 1982 Lipid panel Lipid Panel [facility] Fungal Ab Panel (ID) Fungal Ab P jose luis (ID) Lab Routine Histoplasmosis, unspecified 07/05/2023 9:08 AM EDT [facility] Work Phone: Histoplasma antigen, urine Histoplasma antigen, urine Lab Routine Histoplasmosis, unspecified 07/05/2023 9:08 AM EDT [facility] Patient Education [facility] Work Phone: Patient referral [facility] Work Phone: Procedure [facility] Work Phone: Immunizations Immunization Date Immunization [...] Phone: Payers Date Payer Category Payer Self-pay [id number] 2022 Unknown 2022 Unknown [id number] 2016 Unknown [id number] Unknown [id number] Unknown [id number] Social History Date Type Detail Facility Start: 07-05-2023 Never a smoker Never a smoker [facility] Work Phone: Start: 03-31-2017 End: 06-03-2023 Tobacco smoking status NHIS Unknown if ever smoked [facility] Start: 05-25-2015 None [facility] Start: 05-25-2015 Spouse/ Signif icant Other [facility] Start: 1980 Sex Assigned At Male [facility] Start: 1980 Sex Assigned At Not on file [facility] Start: 07-05-2023 Gender identity Not on file [facility] Start: 07-05-2023 End: 02-09-2024 Tobacco smoking status NHIS Never smoked tobacco [facility] Start: 07-05-2023 Tobacco use and exposure Smoke less tobacco non-user [facility] Start: 07-05-2023 Alcohol intake Ex-drinker (finding) [facility] Start: 07-05-2023 Alcohol Comment Dont drink often [facility] Start: 07-05-2023 Gender identity Identifies as male gender (finding) [facility] Start: 07-05-2023 Sexual orientation Bisexual (finding ) [facility] Mental Status Date Assessment Result Facility 06-03-2023 Cognitive function Level Of Cons ciousness Awake;Alert;Appropriate [facility] Work Phone: Clinical Notes 07-09-2014 to 07-05-2023 Surekha Castano MD - 07/05/2023 8:00 AM EDTPatient InstructionsTelephone Encounter - Zoe Barnes - 06/23/2023 3:18 PM EDTTelephone Encounter - Zoe Barnes - 06/23/2023 3:18 PM EDT Note Date & Type Note Facility 07-05-2023 History of Presen t illness Narrative Images from the original note were not included. [facility] Infectious Diseases Attending Outpatient Consult [...] care was under Dr Amadeo Birmingham at [facility] until he retired, then transferred his care to [facility], Dr Joaquina Rudolph. He had biopsy findings [...] had been seeing Dr Pete Up at [facility] for the chronic Histoplasmosis suppressive therapy [...] MD, MSc, FACP documented in this encounter [facility] 07-05-2023 Instructions Surekha Castano MD - 07/05/2023 8:00 AM EDT Please notify me if persistent fevers, night sweats, poor appetite/energy that are unexplained documented in this encounter [facility] 06-23-2023 Note See referral notes. Waiting to hear from Dr. Castano regarding scheduling. I called pt to inform of this, had to [facility] requesting call back. [facility] 06-23-2023 Telephone encounter Note See referral notes. Waiting to hear from Dr. Castano regarding scheduling. I called pt to inform of this, had to [facility] requesting call back. [facility] 06-23-2023 Miscellaneous Notes See referral notes. Waiting to hear from Dr. Castano regarding scheduling. I called pt to inform of this, had to [facility] requesting call back. Name of Caller: Nikole Contact Reason for Appointment: New Patient appointment. Patient has a referral with diagnosis of Histoplasmosis - suppressive rx. off rx >1 yr . Please contact to schedule. Office Name: Infectious Disease documented in this encounter [facility] 06-23-2023 Telephone encounter Note Name of Caller: Nikole Contact Reason for Appointment: New Patient appointment. Patient has a referral with diagnosis of Histoplasmosis - suppressive rx. off rx >1 yr . Please contact to schedule. Office Name: Infectious Disease [facility] 07-19-2022 Discharge summary Note Date/Time July 19, 2022 5:36am [facility] Medical Records Department [address] [place] [id number] Emergency Department Summary 07/19/22 MR#: [id number] Acct: [id number] Name: NIKOLE VASQUEZ [facility] Rep #:[id number] : 1980 42 From: Karen Mallory MD [...] not noted any blood in his urine [facility] Medical History HTN (hypertension) Ulcerative [...] 72.8 H Lymph % (Auto) 17.6 L Rosebud % (Auto) 7.9 Eos % (Auto) 1.3 [...] Clarity Turbid Urine pH 5.0 Ur Specific Aurora 1.025 Urine Protein 100 H Urine Glucose [...] problems, contact your Primary Care Provider. Call [facility] ([phone]) or report to the closest Emergency Room. Call 911 if necessary. 07/19/22 0736 <Electronically signed by Karen Mallory MD> Cosigner Signature (if applicable): CC: Dr. 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 * 05/2015 presented to [facility] with fever, abdominal pain and diarrhea. [...] for Histoplasmosis and patient was transferred to [facility] for further management of histoplasmosis. * 09/2015 colonoscopy showed same chronic ulcerations and active disease in colon; 12/2015 Humira was resumed. * 03/2016 underwent Ileocecal resection at [facility] given lack of clinical response to Humira. [...] weeks post-treatment.Patient denied any EIM of IBD. 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 * 05/2015 presented to [facility] with fever, abdominal pain and diarrhea. [...] for Histoplasmosis and patient was transferred to [facility] for further management of histoplasmosis. * 09/2015 colonoscopy showed same chronic ulcerations and active disease in colon; 12/2015 Humira was resumed. * 03/2016 underwent Ileocecal resection at [facility] given lack of clinical response to Humira. [...] weeks post-treatment.Patient denied any EIM of IBD. [facility] Work Phone: Chief complaint Narrative - ReportedNew patient visit for consultation re: Crohn'hQT-Iqrhepqkwajfjkdw-[facility] Work Phone: chifk complaint Narrative - ReportedNew patient visit for consultation re: [facility] Work Phone: Evaluation noteNo assessment information available [facility] Work Phone: Evaluation note* Diagnosis Histoplasmosis, unspecified- Primary Crohn's disease of both small and large intestine with other complication (HCC) 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) [facility] instructions Additional Instructions You have influenza A. Rest, drink plenty fluids, and take Tylenol and Motrin. [facility] Work Phone: Reason for referral (narrative)No reason for referral information [facility] Work Phone: Summary Purpose Family History No [...] Will No May 12 8:32pm Power of Rubber Trimmer No May 12, 2015 8:32pm Advance Directive Response Recorded Date/ Time Advance Directives No May 12, 2015 7:32pm Living Will No May 12 7:32pm Power of Rubber Trimmer No May 12, 2015 7:32pm Advance Directive Response Recorded Date/ Time Advance Directives No May 12, 2015 8:32pm Living Will No July 19, 2022 5:34am Power of Rubber Trimmer No July 19 5:34am Advance Directive Response Recorded Date/ Time Advance Directives No May 12, 2015 7:32pm Living Will No June 03 9:34pm Power of Rubber Trimmer No June 03, 2023 9:34pm Advance Directive Response Recorded Date/ Time Advance Directives No May 12, 2015 8:32pm Living Will No June 03 10:34pm Power of Rubber Trimmer No June 03, 2023 10:34pm Advance Directive [...] section and content) DATE CREATED AUTHOR 10/04/2017 [facility] [employer] DATE CREATED AUTHOR AUTHOR'S ORGANIZ ATION 10/04/2017 [facility] DATE CREATED AUTHOR AUTHOR'S ORGANIZ ATION 10/04/2017 [facility] DATE CREATED AUTHOR AUTHOR'S ORGANIZ ATION 12/03/2021 [employer] DATE CREATED AUTHOR AUTHOR'S ORGANIZ ATION 12/05/2021 [facility] DATE CREATED AUTHOR AUTHOR'S ORGANIZ ATION 07/09/2023 [facility] [employer] [facility] DATE CREATED AUTHOR AUTHOR'S ORGANIZ ATION 11/01/2024 [facility] Goals (unrecognized section and content) Goals may [...] Primary Care Provider Active Maribell Gonzalez , POTATO SORTER-C Attending Provider, Referrin g Provider Active Team [...] Provider Active JI, COVERT Attending Provider Active Metal Loader Relationship Specialty Start Date End Date Soumya Aguilar [address] [place] [id number] PCP - General Family Medicine 07/05/23 Team [...] suppressive rx. off rx >1 yr Procedures [place] OFFICE/OUTPATIENT NEW MODERATE MDM 45-59 MINUTES Joaquina Rudolph MD [address] [place] [address] [facility] [address] [place] [address] Referral ID Status Reason Start Date Expiration Date Visits Re quested Visits Authorized [id number] Closed 07/19/2022 07/20/2023 1 1 FOR RECORDS [...] BE BASED ON THE PRIMARY CLINICAL RECORDS. [facility] [employer] [facility]. provides no warranty or guarantee of the accuracy or completeness of information in this document.
[2025-03-20 03:00] VITALS: BP 137/78; PULSE 81; RESP 16; O2SAT 95
--- NOTE | 2025-03-20 03:31 | EDS_ITS ---
HPI History of Present Illness Chief Complaint: Abd Pain Informant: patient Narrative Narrative: Patient is a 45-year-old male with past medical history of hypertension and ulcerative colitis currently on Entyvio. He states that he is scheduled to receive his next injection of Entyvio which she does every 6 weeks 5 days from now. He denies any known sick contacts or fevers or chills. He states that he was laying down getting ready for bed when he developed generalized abdominal discomfort greatest along the right side and nausea without vomiting. He states that symptoms continued to worsen over the next few hours and secondary to this he comes in for evaluation [facility] Medical History HTN (hypertension) Ulcerative colitis Home Medications ?Medication ?Instructions ?Recorded ?Last Taken ?Type ondansetron 4 mg disintegrating 4 mg PO TID PRN nausea and 03/20/25 Unknown Rx tablet vomiting #21 tabs oxycodone-acetaminophen 5 mg-325 1 tab PO Q6H PRN pain 3 days #12 03/20/25 Unknown Rx mg tablet (Percocet) tabs prednisone 20 mg tablet 40 mg (2 x 20 mg) PO DAILY 5 days 03/20/25 Unknown Rx #10 tabs vedolizumab 300 mg intravenous 300 mg IV .Q6W 03/20/25 Unknown History solution (Entyvio) Allergy/AdvReac Type Severity Reaction Status Date / Time No Known Allergies Allergy Verified 03/20/25 00:57 Family History Mother Colon cancer Other Hypertension Surgical History History of intestine removal Social History Smoking Status: Never smoker alcohol intake: never ROS ROS ED Constitutional Constitutional ED: Denies chills or fever(s) Eyes Eyes: Denies change in vision ENT ENT ED: Denies sore throat Cardiovascular Cardiovascular: Denies chest pain Respiratory/Chest Respiratory/Chest: Denies cough or dyspnea Gastrointestinal Gastrointestinal: Reports abdominal pain and nausea; Denies diarrhea or vomiting Genitourinary Genitourinary ED: Denies dysuria Musculoskeletal Musculoskeletal: Denies back pain or myalgias Integumentary Denies rash Neurologic Neurologic: Denies headache(s) Hematologic/Lymphatic Hematologic/Lymphatic: Denies easy bleeding or easy bruising EXAM Physical Exam Const Vital Signs: 03/20/25 00:56 03/20/25 01:56 03/20/25 03:00 Temperature 98.3 F Temperature Source Oral Pulse Rate 85 70 81 Respiratory Rate 18 18 16 Blood Pressure 161/100 H 151/97 H 137/78 H Blood Pressure Mean 120 115 97 Pulse Ox 100 100 95 Oxygen Delivery Method Room Air Room Air Room Air 03/20/25 03:37 Temperature 98 F Temperature Source Pulse Rate 80 Respiratory Rate 16 Blood Pressure 137/78 H Blood Pressure Mean 97 Pulse Ox 96 Oxygen Delivery Method Positive well nourished and well developed General Appearance ED: well developed; Negative for pallor HEENT HEENT Narrative: Normocephalic atraumatic No tongue or lip swelling no oral lesions no airway edema or compromise No secondary findings in the posterior pharynx to suggest infection Eyes PERRL and EOMs intact bilaterally General Eye ED: Negative for scleral icterus Neck supple Resp normal respiratory effort and clear to auscultation bilaterally Cardio regular rate and regular rhythm Rate: other Other Details: Heart is regular rate and rhythm without murmurs rubs or gallop Radial and carotid pulses are equal and symmetric GI GI Narrative: Abdomen is soft but slightly distended with hypoactive bowel sounds. There is diffuse pain with palpation but this is greatest in the mid epigastric to right lateral abdomen. No voluntary guarding or rigidity. No pulsatile mass. No fluid wave No peritoneal signs Auscultation: hypoactive bowel sounds Back/Spine no CVA tenderness Extremity normal to inspection Neuro oriented x3, CN's II-XII intact bilaterally and no sensory deficits noted Sensorium / Orientation: alert Motor Exam: strength 5/5 throughout Psych mental status grossly normal Skin no rashes or lesions noted, no wounds and skin turgor normal General Skin Exam: Negative for jaundice or pallor MDM MDM MDM Narrative Medical decision making narrative: Patient arrived to the ER hypertensive but has a past medical history of this and otherwise vitals are stable. He has known ulcerative colitis and is at the end of the timeframe for his next injection and therefore patient may simply be having an ulcerative colitis flare. However he has had previous abdominal surgery and his belly is slightly distended with hypoactive bowel sounds and there is concern he may have an obstruction. He could also have an intestinal abscess or perforation. Secondary to this basic labs were obtained with a CT scan of the abdomen and pelvis with IV contrast. Labs show lactic acidosis at 2.5 but otherwise no clinically significant findings such as acute kidney injury or clinically significant electrolyte abnormality. The CT scan showed thickening of the intestine mainly along the right side which correlates with his increased area of pain on exam but no obvious abscess perforation or signs of obstruction. After receiving IV fluid steroids and pain medication patient reported significant improvement of his symptoms. He states that the way he feels now he feels very comfortable heading home. As he is not showing signs of obstruction perforation or abscess and has had significant improvement of his pain and improvement of vitals I do agree that he is safe for discharge at this time. He will prescribe steroids to help control inflammation over the next few days as well as nausea and pain medication. However as there is no obstruction or perforation or abscess he can be discharged and follow-up as an outpatient History & Record Review Discussion w/independent historian: Patient Lab Data Attestation: I reviewed the patient's lab results. Labs: Laboratory Results - last 24 hr 03/20/25 03/20/25 01:05 01:14 WBC 6.8 RBC 5.22 Hgb 15.1 Hct 42.5 MCV 81.4 MCH 28.9 MCHC 35.5 RDW Std Deviation 37.2 RDW Coeff of [place] 12.5 Plt Count 214 MPV 10.0 Immature Gran % (Auto) 0.300 Neut % (Auto) 62.1 Lymph % (Auto) 24.6 [place] % (Auto) 9.2 Eos % (Auto) 3.7 Baso % (Auto) 0.1 Absolute Neuts (auto) 4.2 Absolute Lymphs (auto) 1.66 Nucleated RBC % 0 Sodium 141 Potassium 3.8 Chloride 105 Carbon Dioxide 24.7 Anion Gap 11 BUN 16 Creatinine 1.16 Estim Creat Clear Calc 100.86 Est GFR (MDRD) Non-Af 80 BUN/Creatinine Ratio 13.4 Glucose 147 H Lactic Acid 2.5 H* Calcium 9.6 Total Bilirubin 0.24 Direct Bilirubin 0.11 AST 18 ALT 19 Alkaline Phosphatase 101 Total Protein 6.5 Albumin 4.2 Globulin 2.3 Lipase 75 Radiography Diagnostic Testing: Clinical Impression(s) from Imaging Studies Abdomen/Pelvis CT 03/20/25 01:09 IMPRESSION: Currently detected jejunal loops mural thickening, possibly jejunitis with no obvious luminal dilatation or air fluid levels formation. Associated endoluminal hyperdense areas that could represent ingested material versus polyps. Non visualized left ureteric calculus with resolution of the related backpressure changes. Stable rest of the study findings. Reading Location: [place] [id number] Discharge Plan Triage Chief Complaint: Abd Pain ED Provider: Jesus Seals Dx/Rx/DC Orders Clinical Impression: Ulcerative colitis, Abdominal pain, Hypertension Instructions: Abdominal Pain, ED Ulcerative Colitis Prescriptions: New oxycodone-acetaminophen [Percocet] 5-325 mg tablet 1 tab PO Q6H PRN (Reason: pain) 3 Days Qty: 12 0RF ondansetron 4 mg tablet,disintegrating 4 mg PO TID PRN (Reason: nausea and vomiting) Qty: 21 0RF prednisone 20 mg tablet 40 mg PO DAILY 5 Days Qty: 10 0RF No Action Entyvio 300 mg recon soln 300 mg IV .Q6W Primary Care Provider: Aman Aguilar Referrals: Aman Aguilar DO [Primary Care Provider, Family Practice] Activity Restrictions/Additional Instructions: Your CT scan today displayed intestinal inflammation most consistent with ulcerative colitis flare but there is no abscess or perforation or signs of obstruction/blockage. Please take the prednisone to control any further inflammation and use the other prescribed medication for pain and nausea. Symptoms should improve over the next 48 to 72 hours. If your pain remains intractable despite taking the pain pill or you develop a fever or you have any further concerns please return to the ER for repeat evaluation Print Language: Luxembourgish Disposition Disposition: Home, Self Care Discharge Date/Time: 03/20/25 03:43
[2025-03-20 03:37] VITALS: BP 137/78; PULSE 80; RESP 16; TEMP 36.6; O2SAT 96
[2025-03-20 05:19] LABS: Reflex Lactate? Y
== END 2025-03-20 03:43 | disposition home or self-care (01) ==
PROVIDERS: Emergency Provider Emergency Medicine; PCP Family Medicine; Visit Provider Emergency Medicine
DX: K51.90 Ulcerative colitis, unspecified, without complications (principal); I10 Essential (primary) hypertension; Z79.620 Long term (current) use of immunosuppressive biologic
CPT/HCPCS: 74177; 80048; 80076; 83605; 83690; 85025; 96361; 96374; 96375; 99283; Q9967; A4216; J2405